=== PATIENT | male | born 1945 | race Caucasian/White ===

== ENCOUNTER 2018-12-09 09:30 | Outpatient (CLI) | payer MEDICARE ==
--- NOTE | 2018-12-09 11:44 | ULT ---
BILATERAL CAROTID DUPLEX ULTRASOUND INCLUDING COLOR AND SPECTRAL DOPPLER IMAGING: History: Carotid bruit. FINDINGS: There is very extensive visual plaque with lumen diameter narrowing in both right and left proximal I Giselle, worse on the right side. PSV right ICA 355 cm/sec, EDV 129 cm/sec. ICA/CCA ratio is 2.3. PSV left ICA 118 cm/sec, EDV 20 cm/sec. ICA/CCA ratio of 1.0. Vertebral flow is antegrade. IMPRESSION: Severe, greater than 70%, stenosis of the proximal right ICA. Consider non-emergent follow up CT yane ogram for further assessment in this regard. POS: [facility]
== END 2018-12-09 09:31 | disposition home or self-care (01) ==
LOC: ULT 09:30
PROVIDERS: ATTEND Specialist
DX: R09.89 Other specified symptoms and signs involving the circulatory and respiratory systems (principal); I65.21 Occlusion and stenosis of right carotid artery
CPT/HCPCS: 93880

== ENCOUNTER 2018-12-19 09:32 | Outpatient (CLI) | payer MEDICARE ==
--- NOTE | 2018-12-19 12:06 | ULT ---
HEPATIC ULTRASOUND: HISTORY: Cirrhosis. FINDINGS: This exam is technically limited due to bowel gas and patient body habitus. A gallbladder is not nazario ntified. The patient does not state they have had a cholecystectomy. The common duct is not well se en but appears to be 3-4 mm. The liver measures approximately 12 cm in length. Mildly heterogeneous , but no discrete abnormalities. DOPPLER EVALUATION WITH SPECTRAL ANALYSIS: Limited evaluation is seen, but flow patterns appear normal. The spleen is enlarged at 16.4 cm. Pancreas region is obscured as is the abdominal aorta. IMPRESSION: 1. Technically limited examination. The liver is mildly heterogeneous and shows no focal mass. The re is splenomegaly present. 2. The gallbladder is not identified. POS: [facility]
== END 2018-12-19 09:33 | disposition home or self-care (01) ==
LOC: BICULT 09:32
PROVIDERS: ATTEND Internal Medicine Gastroenterology
DX: K74.60 Unspecified cirrhosis of liver (principal); R93.1 Abnormal findings on diagnostic imaging of heart and coronary circulation; R16.1 Splenomegaly, not elsewhere classified
CPT/HCPCS: 76705

== ENCOUNTER 2019-01-02 09:48 | Outpatient (CLI) | payer MEDICARE ==
[2019-01-02 10:40] LABS: Estimated GFR-MDRD - POC Greater than 90
--- NOTE | 2019-01-02 12:01 | CT ---
CTA OF THE NECK UTILIZING IV CONTRAST AND 3D REFORMATTED IMAGING. INDICATION: Carotid stenosis identified by carotid ultrasound dated 12/09/2018. CONTRAST: 100 cc of Isovue 370 was utilized for the examination. Three-D reformatted images were constructed f rom the raw data at a separate work station. FINDINGS: There is 70% luminal caliber narrowing involving the right internal carotid artery at its origin. Th ere is mild luminal caliber narrowing involving the proximal to mid left internal carotid artery that does not appear hemodynamically significantly stenosis. The remaining cervical, petrous, precaverno us, cavernous, and supraclinoid ICAs appear patent. Visualized aspects of the MCAs, ACAs, and certified substance abuse counselor a re patent. There is mild to moderate luminal caliber narrowing involving the origin of the right ar tebral artery that approaches 50%. The left vertebral artery is widely patent. The visualized aspec ts of the basilar artery appear widely patent. Visualized intracranial contents are unremarkable appearing. The orbits are within normal limits. T he parotid, submandibular, and thyroid glands are normal appearing. The visualized aerodigestive tra ct appears within normal limits. There is severe emphysematous change involving the lung apices. There is postsurgical change of a pr ior CABG. There is an ACDF plate involving C4 through C6. There is multilevel spondylosis of the ce rvical spine. IMPRESSION: 1. 70% luminal caliber narrowing involving the origin and proximal aspect of the right internal brown tid artery. 2. 50% luminal caliber narrowing involving the origin and proximal aspect of the cervical right vert ebral artery. 3. Severe emphysema. POS: [facility]
[2019-01-02] MEDS ORDERED: ISOVUE-370 76%-LOCM 1 ML ONE (16:36)
== END 2019-01-02 09:49 | disposition home or self-care (01) ==
LOC: BICCT 09:48
PROVIDERS: ATTEND Specialist
DX: I65.21 Occlusion and stenosis of right carotid artery (principal); J43.9 Emphysema, unspecified; I65.01 Occlusion and stenosis of right vertebral artery
CPT/HCPCS: 70498; 82565; Q9966

== ENCOUNTER 2019-09-10 09:16 | Outpatient (CLI) | payer MEDICARE ==
--- NOTE | 2019-09-10 10:42 | ULT ---
HEPATIC SONOGRAM WITH DUPLEX EVALUATION: Date: 09/10/19 HISTORY: Cirrhosis. FINDINGS: Gallbladder is not visualized on today's exam. No abnormalities are apparent. Common duct is 0.3 cm. Liver has a normal appearance without focal mass or intrahepatic biliary dilatation. No free fluid. The spleen measures up to 15.7 cm. Fusiform dilatation of the lower abdominal aorta measuring up to 4 .3 cm greatest AP diameter. Good color and spectral Doppler flow within the hepatic and splenic arteries. Portal venous flow is t owards the liver. Hepatic venous flow is towards the IVC. IMPRESSION: 1. Moderate splenomegaly. Possibly related to portal venous hypertension. Appropriate directional po rtal venous flow. 2. Fusiform lower abdominal aortic aneurysm, 4.3 cm. 3. Gallbladder not visualized on today's exam. POS: [facility]
== END 2019-09-10 09:17 | disposition home or self-care (01) ==
LOC: ULT 09:16
PROVIDERS: ATTEND Physician Assistant Medical
DX: K74.60 Unspecified cirrhosis of liver (principal); I85.00 Esophageal varices without bleeding; R16.1 Splenomegaly, not elsewhere classified; I71.4 Abdominal aortic aneurysm, without rupture
CPT/HCPCS: 76705

== ENCOUNTER 2019-10-04 15:03 | Inpatient (IN) | payer MEDICARE ==
[~2019-10-04 15:03] MED LIST: Iopamidol-370 76% 500 ML 1 ML ONE
[2019-10-04 16:07] LABS: #Eosinphils 0.1 thou/uL (0.0-0.7); #Lymphocytes 0.5 thou/uL (1.20-3.40); #Monocytes 0.4 thou/uL (0.11-0.59); %Basophils 0.1 % (0.0-1.0); %Eosinophils 1.4 % (0.0-10.0); %Lymphocytes 10.5 % (21.0-51.0); %Monocytes 8.5 % (0.0-10.0); %Neutrophils 79.5 % (42.0-75.0); Hemoglobin 12.6 g/dL (14.0-18.0); Mean Corpuscular HGB CONC 32.4 g/dL (32.0-36.0); Mean Corpuscular Hemoglobin 28.7 pg (27.0-31.0); Mean Corpuscular Volume 88.4 fL (78.0-98.0); RBC Distribution Width 16.3 % (11.5-14.5); Red Blood Cell (RBC) Count 4.39 mill/uL (4.70-6.10)
[2019-10-04] MEDS ORDERED: cefTRIAXone\\ROCEPHIN 1 GM VIAL ONE (16:11)
[2019-10-04] MEDS ORDERED: Azithromycin 500 MG VIAL ONE (16:11)
[2019-10-04 16:29] LABS: MDiff Complete? YES; Ovalocytes SLIGHT = 2-5 cells (100X) (0-1/hpf); Platelet Count 39 thou/uL (130-400); Platelet Morphology Comment Appears Decreased; Polychromasia SLIGHT = 2-3 cells (100X) (0-2/hpf); Tear Drops SLIGHT = 2-5 cells (100X) (0-1/hpf)
[2019-10-04 16:31] LABS: ALT (SGPT) 21 U/L (8-55); AST (SGOT) 30 U/L (5-34); Albumin 3.2 g/dL (3.4-4.8); Alkaline Phosphatase 96 U/L (40-110); Anion Gap 11 mmol/L (10-20); BUN (Urea Nitrogen) 9 mg/dL (8.4-25.7); Bilirubin, Total 2.3 mg/dL (0.2-1.2); CK (CPK) 44 U/L (30-200); Calc. Creatinine Clearance 0 mL/min (70-130); Calcium 8.8 mg/dL (7.8-10.44); Carbon Dioxide 25 mmol/L (23-31); Chloride 106 mmol/L (98-107); Estimated GFR-MDRD Greater than 90; Globulin 3.1 g/dL (2.4-3.5); Glucose 137 mg/dL (83-110); Potassium 4.2 mmol/L (3.5-5.1); Protein, Total 6.3 g/dL (5.8-8.1); Sodium 138 mmol/L (136-145)
--- NOTE | 2019-10-04 16:31 | RAD ---
XR Chest 1 View Portable History: Cough Comparison: Radiograph 2011 Findings: Heart size mildly enlarged. There is suggestion of mild pulmonary edema and pulmonary venou s congestion. No pneumothorax. No significant effusion. Multiple midline sternotomy wires. Impression: Findings of congestive heart failure. Follow-up recommended.
--- NOTE | 2019-10-04 17:48 | CT ---
CTA Angio Chest W WO Con History: Cough Comparison: Radiograph same day Findings: CT in April chest performed after the intravenous ministration of contrast. 3-D rendering pr ovided. Pulmonary arteries are dilated. No proximal segmental pulmonary arterial filling defect. Aortic contour is nonaneurysmal. Numerous mildly prominent paratracheal and prevascular lymph nodes. The spleen is markedly enlarged. The gallbladder has cholelithiasis. There is fluid along the right p aracolic gutter, incompletely evaluated. No significant pericardial fluid. Mild pulmonary venous congestion and early edema. There is some subpleural reticulation and lower lob es. No pneumothorax. No focal confluent airspace consolidation. No thoracic spine compression fracture. There is contrast within the renal collecting systems on the examination indicating this is done during a delayed phase. No displaced rib fracture. Impression: 1. Within the limits of this delayed exam, no pulmonary embolism. 2. Cardiomegaly and mild pulmonary venous congestion. 3. Markedly splenomegaly. 4. Cholelithiasis. 5. Small volume fluid right paracolic gutter may be sequelae of portal hypertension and hepatic dysfu nction versus colitis.
[2019-10-04 20:41] LABS: Troponin I 0.174 ng/mL (< 0.028)
[2019-10-04] MEDS ORDERED: Furosemide 40 MG/4 ML VIAL ONE (21:40)
[2019-10-05 02:44] LABS: Troponin I 0.207 ng/mL (< 0.028)
[2019-10-05] MEDS ORDERED: Dextrose 50% Abboject 50 ML SYRINGE IVP PRN (08:31)
[2019-10-05] MEDS ORDERED: Dextrose 5% in Water 1,000 ML IV PRN (08:31)
[2019-10-05] MEDS ORDERED: Insulin Regular 300 UNITS/3 ML VIAL SC PRN ×2 (08:31)
[2019-10-05] MEDS ORDERED: Propranolol HCl 20 MG TAB PO SCH (09:00)
[2019-10-05] MEDS ORDERED: Aspirin 325 MG TAB ONE (09:11)
[2019-10-05] MEDS ORDERED: Multivitamin W/ Minerals 1 TAB ONE (09:11)
[2019-10-05] MEDS: Aspirin 325 MG TAB PO SCH (09:41)
[2019-10-05] MEDS: Lisinopril 20 MG TAB PO SCH (09:41)
[2019-10-05] MEDS: Multivit, Therapeutic 1 TAB PO SCH (09:42)
[2019-10-05] MEDS: Isosorbide Mononitrate (ER) 30 MG TAB PO SCH ×2 (09:42→21:47)
[2019-10-05] MEDS: Oxybutynin 5 MG TAB PO SCH (09:42)
[2019-10-05] MEDS: Alogliptin 25 MG TAB PO SCH (09:42)
--- NOTE | 2019-10-05 10:32 | HP ---
CHIEF COMPLAINT: Congestive heart failure and atypical pneumonia. 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 He had actually been in to see Dr. Rocha 2 weeks prior, at which time he said he felt better at the time and nothing was determined on his physical exam to be abnormal other than his usual issues. In the last 2 weeks, he has noted increasing shortness of breath. In the last several days, there has been fever, diaphoresis, nausea. No vomiting or diarrhea. Cough, but it got really bad on the day of admission, such that he could not walk to get into his car; therefore, he intended to drive to the emergency room so that he called the 911 and they brought him into the emergency room. There, he was noted by chest x-ray and CT scan to have pulmonary edema and possibly infiltrate for pneumonia. The patient has not documented his fever. He has been diaphoretic with severe cough and he has dyspnea on exertion. PAST MEDICAL HISTORY: He has chronic lymphocytic leukemia, has been in remission for quite some time. He is a type 2 diabetic. He has a long history of coronary artery disease with a cath done in 1990 and bypass in 1990. He also has severe GERD. He has a chronic anemia felt to be related to his leukemia. He has hyperlipidemia. He has type 2 diabetes, usually well controlled with medication. He also has a history of BPH, hypertension. PAST SURGICAL HISTORY: Includes the aforementioned cardiac bypass in 1990. In 1987, he had severe cervical stenosis requiring surgery with Dr. Baird. He had an episode of chest pain needing a coronary artery bypass graft x5. His last colonoscopy was in 2010, where he was noted to have diverticulosis. SOCIAL HISTORY: He drinks socially. He does not smoke. He is . ALLERGIES: HE HAS NO KNOWN DRUG ALLERGIES. MEDICATIONS: On admission include: 1. Aspirin 81 mg daily. 2. Oxybutynin 5 mg daily. 3. Kombiglyze 2.03/1000 b.i.d. 4. Imdur 30 mg b.i.d. 5. Glimepiride 2 mg b.i.d. 6. Propranolol 20 mg b.i.d. 7. Rosuvastatin 5 mg daily. 8. Niacin 500 mg two tabs b.i.d. 9. Benazepril 20 mg at bedtime. 10. Omeprazole 20 mg daily. 11. Vitamin D 5000 units daily. 12. Saw [place] 450 mg two tabs b.i.d. 13. He no longer takes a diuretic. REVIEW OF SYSTEMS: CONSTITUTIONAL: He has general weakness, dyspnea on exertion, diaphoresis, fever, general malaise. HEENT: No sores or lesions or drainage from eyes, ears, nose, or throat. CHEST: He has dyspnea with cough. CARDIOVASCULAR: He denies chest pain or palpitations. GI: He has had nausea, but no vomiting or diarrhea. : No dysuria. He has chronic urinary frequency. No blood in urine or stool. MUSCULOSKELETAL: No new aches or pains or joint problems. SKIN: No new rashes or lesions. NEUROLOGIC: No trouble with mentation, headaches, or confusion. PHYSICAL EXAMINATION: At the time of admission, VITAL SIGNS: Blood pressure 119/55, respirations 16, pulse 66, temperature 98.6 , O2 saturation is 95% on room air. GENERAL: This is an obese male, alert, oriented, cooperative. HEENT: Normocephalic, atraumatic. Pupils are equal, round, and reactive to light with arcus senilis bilaterally. TMs, nares, and his pharynx are clear. NECK: Supple. CHEST: Unable to appreciate bruit or mass. Chest with diminished breath sounds and audible rales bilaterally. HEART: Regular rate and rhythm without murmur. ABDOMEN: Obese. Able to appreciate splenomegaly also noted on CT exam. No other masses or tenderness noted. : Deferred. EXTREMITIES: Without clubbing, cyanosis, or edema. SKIN: Without rashes or lesions. NEUROLOGIC: Cranial nerves are intact. Gait and cerebellar function untested. Sensory exam is generally intact. Mental status is clear. LABORATORY DATA: Lab work thus far shows WBCs 5, hemoglobin 12.6, hematocrit 38.8 with platelets at 39. The D-dimer elevated at 2.9. Sodium 138, potassium 4.2, chloride 106, CO2 is 25, BUN 9, creatinine 0.7, glucose 137, lactic acid 1.7, total bilirubin 2.3. Other liver functions unremarkable. Cardiac enzymes elevated at 0.1, all the way up to 0.25. His BNP elevated at 393. Chest x-ray showed what appears to be pulmonary edema. CT scan confirms a splenomegaly, also noted indolent pneumonia probably present as well. ASSESSMENT: 1. Congestive heart failure, acute exacerbation. 2. Atypical pneumonia. 3. Thrombocytopenia. 4. History of chronic lymphocytic leukemia. 5. Type 2 diabetes. 6. Hypertension. 7. Dyslipidemia. 8. History of coronary artery disease with coronary artery bypass graft x5. PLAN: Telemetry. Continue IV medications. Consult Dr. Arteaga, echocardiogram. Gradual diuresis and serial re-evaluation. Job ID: [id number] MTDD
[2019-10-05 10:59] VITALS: BMI 32.2
[2019-10-05] MEDS ORDERED: FLU VACC TS2019-20(65YR UP)/PF 180 MCG/0.5 ML SYRINGE IM ONE (11:45)
[2019-10-05] MEDS ORDERED: Furosemide 20 MG/2 ML VIAL SLOW IVP SCH (13:45)
[2019-10-05] MEDS ORDERED: Enoxaparin Sodium 120 MG/0.8 ML SYRINGE SC SCH (14:00)
--- NOTE | 2019-10-05 14:20 | CON ---
DATE OF CONSULTATION: PRIMARY DIGITAL MARKETING ASSISTANT: Dr. Diego Arteaga. REASON FOR CONSULTATION: Shortness of breath, congestive heart failure, and [id number] myocardial infarction. HISTORY OF PRESENT ILLNESS: Mr. Recinos is a very pleasant 74-year-old gentleman, patient of Dr. Arteaga. The patient initially had bypass surgery in 1990. The patient has had some chest pain off and on since then, but from what I can tell, no intervention has been necessary. He did undergo cardiac catheterization by Dr. Killian in the year 1999. At that time, he was found to have 3-vessel coronary artery disease with a patent internal mammary to the LAD, patent vein graft to the diagonal, patent vein graft to marginal branch of the circumflex, patent graft to the posterior descending artery. He did have some diffuse distal disease. The patient was seen by Dr. Arteaga a few times since then, doing well. The patient states that he has not been feeling well now for about 2 weeks. He has had a subjective fever for about 2 weeks and a cough he said, but he cannot cough anything up. He said he did not have a thermometer, but eventually got a thermometer and it was sometimes at 100.6, but then yesterday went to 101.9. He decided to come to the emergency room. He has been started on antibiotics. He did not have any shaking chills. The patient does not have any anginal chest pain. He does have some chest pain with a deep breath. The patient otherwise has been in relatively good physical condition. MEDICATIONS: 1. Saxagliptin/metformin. 2. Actos. 3. Oxybutynin. 4. Omeprazole. 5. Nadolol. 6. Isosorbide. 7. Glimepiride. 8. Benazepril. 9. Aspirin. 10. Niacin. ALLERGIES: NONE KNOWN. REVIEW OF SYSTEMS: CONSTITUTIONAL: Positive for weakness, fatigue, and fever. VISION: No changes. HEARING: No changes. PULMONARY: As above. CARDIAC: No anginal chest pain. GASTROINTESTINAL: No nausea, vomiting, or diarrhea. SKIN: No rashes. NEUROLOGIC: No unilateral weakness or numbness. PSYCHIATRIC: No unusual depression or anxiety. PHYSICAL EXAMINATION: GENERAL: This is a pleasant 74-year-old gentleman. VITAL SIGNS: Blood pressure 149/86, pulse 66 and regular. EYES: Sclerae nonicteric. MOUTH: Mucous membranes moist. NECK: Supple. No lymphadenopathy. LUNGS: He has bibasilar rales on the left side greater than the right. No wheezing. CARDIAC: Normal S1 and normal S2. ABDOMEN: Soft and nontender. EXTREMITIES: Warm and dry. No clubbing. No cyanosis or edema. He has good peripheral pulses. SKIN: Warm and dry. PERTINENT LABORATORY DATA: Troponin peak of 0.25. Glucose 241. BNP 393. Bilirubin 2.3. WBC is 5.0. D-dimer 2.9. IMAGING STUDIES: The patient has had chest CTA, which was negative for thrombus. Chest x-ray does look like some element of pulmonary vascular congestion with cardiac enlargement. The chest and thorax CTA revealed no pulmonary embolism. No evidence of cardiomegaly. Pulmonary vascular congestion. Echocardiogram has been ordered. EKG reveals a right bundle-branch block with a left axis deviation, that is not a new finding, bifascicular block. ASSESSMENT: 1. Fever up to 101.9, probably pulmonary in origin. 2. Cough, seems to be a combination of perhaps bronchitis as well as congestive heart failure. 3. Congestive heart failure, most likely this represents diastolic acute on chronic. 4. Coronary artery disease with previous bypass surgery 18 years ago. PLAN: 1. I agree with antibiotics. 2. We will begin diuretics. 3. Change beta blockers to carvedilol. 4. Hopefully eventually can proceed to cardiac catheterization. Right now, the patient can lay down more than about a 45-degree angle, it would not be safe or reasonable to proceed with catheterization at this point. In addition, he has had a non-ST elevation myocardial infarction, which is probably demand ischemia. We will anticoagulate as well, give him aspirin as well. We will continue to follow with you. 5. Prognosis guarded. Job ID: [id number]
[2019-10-05] MEDS: Carvedilol 3.125 MG TAB PO SCH (16:54)
[2019-10-05] MEDS: Glimepiride 2 MG TAB PO SCH (16:56)
[2019-10-05] MEDS: Azithromycin 500 MG in Sodium Chloride 0.9% 250 ML 250 ML IVPB SCH (17:47)
[2019-10-05] MEDS: cefTRIAXone\\ROCEPHIN 1 GM in Sodium Chloride 0.9% 100 ML IVPB SCH (17:47)
[2019-10-05] MEDS ORDERED: Rosuvastatin 5 MG TAB PO SCH (21:00)
[2019-10-06 04:47] LABS: Anion Gap 7 mmol/L (10-20); BUN (Urea Nitrogen) 11 mg/dL (8.4-25.7); Calc. Creatinine Clearance 120 mL/min (70-130); Calcium 8.2 mg/dL (7.8-10.44); Carbon Dioxide 31 mmol/L (23-31); Chloride 109 mmol/L (98-107); Estimated GFR-MDRD Greater than 90; Glucose 66 mg/dL (83-110); Potassium 4.1 mmol/L (3.5-5.1); Sodium 143 mmol/L (136-145)
[2019-10-06 05:13] LABS: Anisocytosis SLIGHT = 6-15 cells (100X) (0-5/hpf); Band 5 % (5-11); Eosinophils 1 % (0-10); Hemoglobin 10.7 g/dL (14.0-18.0); Lymphocytes 22 % (21-51); MDiff Complete? YES; Mean Corpuscular HGB CONC 31.3 g/dL (32.0-36.0); Mean Corpuscular Volume 89.3 fL (78.0-98.0); Mean Platelet Volume 15.2 fL (7.4-10.4); Monocytes 3 % (0-10); Neutrophil 69 % (42-75); Platelet Count 26 thou/uL (130-400); Platelet Morphology Comment Appears Decreased; Red Blood Cell (RBC) Count 3.84 mill/uL (4.70-6.10); White Blood Cell (WBC) Count 3.2 thou/uL (4.8-10.8)
[2019-10-06] MEDS: Glimepiride 2 MG TAB PO SCH (08:16)
[2019-10-06] MEDS: Carvedilol 3.125 MG TAB PO SCH ×2 (08:24→16:51)
[2019-10-06] MEDS: Isosorbide Mononitrate (ER) 30 MG TAB PO SCH ×2 (08:24→20:33)
[2019-10-06] MEDS: Lisinopril 20 MG TAB PO SCH (08:24)
[2019-10-06] MEDS: Alogliptin 25 MG TAB PO SCH (08:24)
[2019-10-06] MEDS: Multivit, Therapeutic 1 TAB PO SCH (08:25)
[2019-10-06] MEDS: Oxybutynin 5 MG TAB PO SCH (08:25)
[2019-10-06] MEDS: Aspirin 325 MG TAB PO SCH (08:25)
[2019-10-06] MEDS: Furosemide 20 MG TAB PO SCH (08:25)
[2019-10-06 09:09] LABS: #Eosinphils 0.1 thou/uL (0.0-0.7); #Lymphocytes 0.7 thou/uL (1.20-3.40); #Monocytes 0.4 thou/uL (0.11-0.59); #Neutrophils 2.8 thou/uL (1.40-6.50); %Basophils 0.1 % (0.0-1.0); %Eosinophils 2.6 % (0.0-10.0); %Lymphocytes 16.8 % (21.0-51.0); %Monocytes 9.3 % (0.0-10.0); %Neutrophils 71.1 % (42.0-75.0); Hemoglobin 11.8 g/dL (14.0-18.0); Mean Corpuscular Hemoglobin 27.9 pg (27.0-31.0); Mean Platelet Volume 14.2 fL (7.4-10.4); Platelet Count 31 thou/uL (130-400); Red Blood Cell (RBC) Count 4.22 mill/uL (4.70-6.10); White Blood Cell (WBC) Count 3.9 thou/uL (4.8-10.8)
[2019-10-06 09:42] LABS: Free T4 (Free Thyroxine) 1.15 ng/dL (0.70-1.48)
--- NOTE | 2019-10-06 09:43 | RAD ---
PA AND LATERAL CHEST: Date: 10/06/19 HISTORY: Chest pain. COMPARISON: 09/23/08 study. FINDINGS: Heart size appears borderline size with postop sternotomy change. There are chronic appearing lung ch anges present. No focal infiltrative process. IMPRESSION: Chronic appearing lung change. Interstitial changes are slightly more prominent than on the previous exam. There could be some minimal element of edema present. POS: [facility]
--- NOTE | 2019-10-06 10:14 | PRG ---
DATE OF SERVICE: 10/06/2019 SUBJECTIVE: Mr. Recinos is doing well. However, he did cough up some blood this morning. He still had an occasional episode of what sounds like angina. He is otherwise doing better. OBJECTIVE: VITAL SIGNS: His blood pressure is 112/55, pulse 65 and regular. LUNGS: Clear. CARDIAC: Normal S1, normal S2. ABDOMEN: Soft, nontender. Echocardiogram showed normal left ventricular function. The patient's platelet count, however, is extremely low at 26,000 with a repeat of 31,000. ASSESSMENT: 1. Severely low platelet count. 2. Diastolic heart failure, improved. 3. Probably pneumonia, improved. 4. Previous bypass surgery. PLAN: 1. He got one dose of Lovenox yesterday and was not given any further Lovenox. 2. Would recommend a Hematology consult. I do not think it is safe to proceed to invasive therapy at the present time with a platelet count being this low. 3. We will give another dose of Lasix. 4. Add nitrates and we will discuss with Dr. Rocha. Job ID: [id number]
[2019-10-06] MEDS ORDERED: Furosemide 20 MG/2 ML VIAL SLOW IVP SCH (14:00)
[2019-10-06 14:13] LABS: INR-International Normal Ratio 1.4; PTT 41.8 SEC (22.9-36.1); Prothrombin Time 17.3 SEC (12.0-14.7)
[2019-10-06] MEDS: Azithromycin 500 MG in Sodium Chloride 0.9% 250 ML 250 ML IVPB SCH (15:07)
[2019-10-06] MEDS: cefTRIAXone\\ROCEPHIN 1 GM in Sodium Chloride 0.9% 100 ML IVPB SCH (16:51)
[2019-10-06] MEDS ORDERED: Potassium Chloride 20 MEQ TAB PO SCH (17:00)
[2019-10-06] MEDS: SAW PALMETTO 450 MG PO SCH (17:08)
[2019-10-06] MEDS ORDERED: Amiodarone 450 MG, Admixture Fee 1 EACH in Dextrose 5% in Water 250 ML IVPB SCH (19:15)
[2019-10-06] MEDS ORDERED: Amiodarone 150 MG, Admixture Fee 1 EACH in Dextrose 5% in Water 100 ML IVPB SCH (20:00)
[2019-10-06] MEDS ORDERED: Metoprolol Tartrate 25 MG TAB PO SCH (21:00)
--- NOTE | 2019-10-06 21:51 | CON ---
DATE OF CONSULTATION: REASON FOR CONSULTATION: Thrombocytopenia. HISTORY OF PRESENT ILLNESS: Mr. Recinos is a pleasant gentleman, who is under the care of the [facility] and Dr. Adelso Rocha, who presented to the emergency room with increasing shortness of breath. He also had a fever for approximately 2 weeks. He was admitted for further workup. While showering, he began to have some chest pain during this admission and Cardiology was consulted. Mr. Recinos has a longstanding history of chronic iron-deficient anemia and mild chronic thrombocytopenia. He has been seen by Dr. Weeks in 2013, and after a prolonged absence again in 2016. His platelets in April 2017 were 58,000. He most recently has been seen by Dr. Landaverde and apparently has a new diagnosis of cirrhosis. On this admission, he underwent a chest and thorax CT angio. There was no PE. There was pulmonary venous congestion, cardiomegaly, splenomegaly and possible portal hypertension. The patient's platelets on arrival were 39,000, it dropped to 26,000 early this morning. We were asked to see the patient regarding his thrombocytopenia. The patient denies any complaints at this time. He has no shortness of breath. No chest pain. He has no bleeding, bruising, or rash. PAST MEDICAL HISTORY: 1. History of iron-deficient anemia with a negative GI workup. 2. Chronic ITP. 3. Type 2 diabetes. 4. Coronary artery disease. 5. Hyperlipidemia. PAST SURGICAL HISTORY: 1. Coronary artery bypass grafting. 2. Back surgery. ALLERGIES: NO KNOWN DRUG ALLERGIES. HOME MEDICATIONS: 1. Aspirin. 2. Benazepril. 3. Glimepiride. 4. Isosorbide. 5. Nadolol. 6. Niacin. 7. Prilosec. 8. Oxybutynin. 9. Pioglitazone. 10. Saw palmetto. 11. Saxagliptin/metformin. FAMILY HISTORY: Father from lung cancer. His brother and son have hemochromatosis. The patient has been tested in the past and was negative. SOCIAL HISTORY: , has 2 children. Lives alone. Former smoker. No alcohol or illicit drug use. REVIEW OF SYSTEMS: A 10-point review of systems is negative except for noted in HPI. PHYSICAL EXAMINATION: VITAL SIGNS: Temperature is 97.8, pulse is 81, respiratory rate 18, BP is 103/52. He is 95% on 4 L. GENERAL: This is a well-developed, well-nourished male, in no acute distress. HEENT: Normocephalic, atraumatic. Pupils are equal and reactive to light. NECK: Supple. CV: Regular rate and rhythm. LUNGS: Clear. ABDOMEN: Soft and nontender. Bowel sounds are positive. EXTREMITIES: There is no clubbing or cyanosis. SKIN: No rash. HEMATOLOGICAL: There is no petechiae or purpura. NEUROLOGICAL: Nonfocal. PERTINENT LABORATORY DATA AND X-RAYS: Current WBCs are 3.9, hemoglobin 11.8, hematocrit 38.0, platelet count is 31,000, 71% neutrophils, 16% lymphocytes. PT 7.3, INR is 1.4, and PTT is 41.8. Sodium is 143, potassium 4.1, chloride 109, CO2 is 31, BUN is 11, creatinine 0.7, bilirubin is 2.3, AST is 30, ALT is 21, alkaline phosphatase is 96. Troponin is 0.207. BNP is 393. Serum total protein is 6.3, albumin 3.2, globulin 3.1. ASSESSMENT: 1. Chronic thrombocytopenia. 2. Possible cirrhosis with splenomegaly and pulmonary hypertension. 3. Coronary artery disease. DISCUSSION: The patient has chronic ITP, which may have recently worsened secondary to his splenomegaly and cirrhosis. He does not require a platelet transfusion at this time and can follow up with GI for further workup. If he is to have a heart catheterization, I would recommend platelet transfusion to get his platelets above 50,000. No further workup at this time. I am unaware of a history of CLL. I have no documentation regarding that, so I will speak further with the patient regarding this. There is certainly no evidence of active CLL at this time. Thank you for the consult. We will follow along with his hospital course. Job ID: [id number]
[2019-10-07 00:19] LABS: ALT (SGPT) 20 U/L (8-55); AST (SGOT) 30 U/L (5-34); Albumin 2.8 g/dL (3.4-4.8); Alkaline Phosphatase 76 U/L (40-110); Bilirubin, Direct 0.7 mg/dL (0.1-0.3); Bilirubin, Total 1.4 mg/dL (0.2-1.2); Magnesium 1.6 mg/dL (1.6-2.6); Protein, Total 5.4 g/dL (5.8-8.1)
[2019-10-07 05:39] LABS: #Eosinphils 0.1 thou/uL (0.0-0.7); #Lymphocytes 0.9 thou/uL (1.20-3.40); #Monocytes 0.4 thou/uL (0.11-0.59); #Neutrophils 2.1 thou/uL (1.40-6.50); %Basophils 0.6 % (0.0-1.0); %Eosinophils 2.4 % (0.0-10.0); %Lymphocytes 26.8 % (21.0-51.0); %Monocytes 11.5 % (0.0-10.0); %Neutrophils 58.7 % (42.0-75.0); Hemoglobin 10.8 g/dL (14.0-18.0); MDiff Complete? YES; Mean Corpuscular HGB CONC 31.5 g/dL (32.0-36.0); Mean Corpuscular Volume 88.9 fL (78.0-98.0); Mean Platelet Volume 13.9 fL (7.4-10.4); Ovalocytes SLIGHT = 2-5 cells (100X) (0-1/hpf); Platelet Count 38 thou/uL (130-400); Platelet Morphology Comment Appears Decreased; RBC Distribution Width 15.9 % (11.5-14.5); Red Blood Cell (RBC) Count 3.84 mill/uL (4.70-6.10); Tear Drops SLIGHT = 2-5 cells (100X) (0-1/hpf); White Blood Cell (WBC) Count 3.5 thou/uL (4.8-10.8)
[2019-10-07 05:57] LABS: Anion Gap 9 mmol/L (10-20); BUN (Urea Nitrogen) 13 mg/dL (8.4-25.7); Calc. Creatinine Clearance 122 mL/min (70-130); Calcium 8.1 mg/dL (7.8-10.44); Carbon Dioxide 30 mmol/L (23-31); Chloride 107 mmol/L (98-107); Estimated GFR-MDRD Greater than 90; Glucose 101 mg/dL (83-110); Potassium 4.2 mmol/L (3.5-5.1); Sodium 142 mmol/L (136-145)
--- NOTE | 2019-10-07 08:20 | RAD ---
EXAM: Single view of the chest HISTORY: Pneumonia COMPARISON: 10/04/2019 FINDINGS: Single view of the chest shows an enlarged but stable cardiomediastinal silhouette. The pa tient is status post CABG. There is no evidence of consolidation, mass, or pleural effusion. The bones are unremarkable. IMPRESSION: No evidence of acute cardiopulmonary disease
[2019-10-07] MEDS ORDERED: Carvedilol 3.125 MG TAB PO SCH (08:45)
[2019-10-07] MEDS: Alogliptin 25 MG TAB PO SCH (08:51)
[2019-10-07] MEDS: Multivit, Therapeutic 1 TAB PO SCH (08:52)
[2019-10-07] MEDS: Isosorbide Mononitrate (ER) 30 MG TAB PO SCH ×2 (08:52→19:52)
[2019-10-07] MEDS: Furosemide 20 MG TAB PO SCH (08:52)
[2019-10-07] MEDS: Oxybutynin 5 MG TAB PO SCH (08:52)
[2019-10-07] MEDS: Aspirin 81 mg Enteric Coated Tablet PO SCH (08:52)
[2019-10-07] MEDS: Lisinopril 20 MG TAB PO SCH (08:52)
[2019-10-07] MEDS: Carvedilol 3.125 MG TAB PO SCH ×2 (08:57→16:18)
--- NOTE | 2019-10-07 09:03 | PRG ---
DATE OF SERVICE: 10/07/2019 SUBJECTIVE: Mr. Recinos is doing fine this morning. No chest pain. No shortness of breath. The patient did have an episode of tachycardia last night as will be outlined below. He is now in sinus rhythm. OBJECTIVE: VITAL SIGNS: Blood pressure 124/58, pulse 66 and regular. HEENT: Eyes; sclerae, nonicteric. Mouth, mucous membranes moist. LUNGS: Clear. CARDIAC: Normal S1, normal S2. ABDOMEN: Soft and nontender. EXTREMITIES: No edema. PERTINENT LABORATORY DATA: The patient's platelet count is 38,000, white count is 3.5. The INR yesterday was 1.4, PTT was 41.8, indicating he also has a coagulopathy. ASSESSMENT: 1. Bifascicular block. 2. Previous coronary artery bypass grafting. 3. Cardiac catheterization done in the year [address] Killian showed a patent internal mammary to the LAD, a small diffusely diseased to LAD, patent diagonal saphenous vein graft to a diagonal, patent saphenous vein graft to an obtuse marginal, patent saphenous vein graft to the right coronary artery. 4. Low platelet count thought to be related to ITP. 5. Coagulopathy, probably hepatic in origin. 6. Non-ST elevation myocardial infarction, prior demand ischemia. 7. Tachycardia. Same morphology is the resting EKG with a bifascicular block pattern, although somewhat wider. He was started on amiodarone last night and maintains on that today. PLAN: 1. We will talk with Dr. Weeks about the possibility of prednisone to see if we can get the platelet count higher. The problem would be if stenting is indicated, then really likely can be done safely without using dual anti-platelet drugs at least for a month and I think that would be safe with a platelet count below 50,000, also some coagulopathy. 2. Consult with Dr. Davidson about the dysrhythmia. 3. Prognosis is guarded in this gentleman with multiple problems. I do not think it is safe to proceed to catheterization today. In this situation, he will be a poor candidate for bypass surgery with low platelet count and coagulopathy, especially redo operation and also would be a poor candidate for percutaneous therapy with a platelet count of 38,000 and coagulopathy. Risk of bleeding would be high and it is unclear whether dual anti-platelet drugs could even be used. Job ID: [id number]
[2019-10-07] MEDS: Amiodarone 450 MG in Dextrose 5% in Water 250 ML IVPB SCH ×2 (10:26→23:52)
[2019-10-07] MEDS: cefTRIAXone\\ROCEPHIN 1 GM in Sodium Chloride 0.9% 100 ML IVPB SCH (16:16)
[2019-10-07] MEDS: Azithromycin 500 MG in Sodium Chloride 0.9% 250 ML 250 ML IVPB SCH (17:31)
--- NOTE | 2019-10-07 18:57 | CON ---
DATE OF CONSULTATION: 10/07/2019 HISTORY OF PRESENT ILLNESS: I am seeing Mr. 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 His problems are: 1. Newly found atypical appearing atrial flutter. a. Prompt response to amiodarone noted. 2. Coronary artery disease. a. History of coronary artery bypass grafting surgery in the past. b. Presentation of qth-AZ-[id number] myocardial infarction. c. Preserved LVEF on 2D echo at 55% to 60%, moderate to severely enlarged left atrium, mild mitral regurgitation, tricuspid regurgitation, mild pulmonary artery pressure elevation on echo on 10/05/2019. 3. Bifascicular block with right bundle and left axis deviation on baseline EKG. 4. 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 5. Type 2 diabetes. 6. Diastolic heart failure with exacerbation. 7. History of chronic lymphocytic leukemia. 8. Atypical pneumonia. ALLERGIES: NONE NOTED. MEDICATIONS: At home included: 1. Saxagliptin/metformin. 2. Pioglitazone. 3. Oxybutynin. 4. Omeprazole. 5. Nadolol. 6. Isosorbide mononitrate. 7. Glimepiride. 8. Benazepril. 9. Saw palmetto. 10. Aspirin. 11. Niacin. SUBJECTIVE: Mr. Recinos was admitted on the with progressive dyspnea for the last 2 weeks. He had cough progressively worsening on day of admission so much so he had to call the EMS. On chest x-ray and CT scan, he had noted to have pulmonary edema, possible infiltrating pneumonia was also diagnosed. He was initiated IV ceftriaxone as well as diuretics. Now seems to be remarkably improved. While on monitoring though he developed episodes of rapid narrow complex tachycardia with QRS morphology similar to baseline, but with rates up to 150 beats per minute. This rhythm promptly terminated with IV amiodarone bolus. He also was noted to have elevated troponin levels. Dr. Carrasco consulted me for further arrhythmia management. Currently, the patient is afebrile. Denies chest pain. No palpitations. Not aware of the rapid heartbeats. He had no stroke-like symptoms. No neurological deficits. Rest of 12-point review of systems is otherwise unremarkable. PAST MEDICAL HISTORY: As above. SOCIAL HISTORY: The patient denies smoking, EtOH, or drug abuse. He does drink socially. He is . FAMILY HISTORY: Not contributory. OBJECTIVE DATA: VITAL SIGNS: Blood pressure is 103/52, heart rate 78, respirations 24, temperature 97.7 degrees Fahrenheit. GENERAL: Alert and oriented man, in no apparent distress. NECK: Supple. Jugular vein is not distended. CHEST: Coarse without crackles. HEART: Sounds are regular to rate and rhythm. No murmur or gallop. ABDOMEN: Benign. Bowel sounds positive. EXTREMITIES: Lower extremities without edema, clubbing, or cyanosis. Pulses are adequate. NEUROLOGIC: The patient is nonfocal. MUSCULOSKELETAL: Without joint swelling or deformity. SKIN: Without rash. Midsternal scar is appreciated. DATABASE: EKG is reviewed. Again reveals sinus rhythm with bifascicular block and rate of 68 beats per minute on October 04, 2019. Telemetry strips do reveal an episode of wide-complex tachycardia, although similar morphology to baseline with difficult to visualize P wave, but possibly 2:1 conduction is noted suggestive of atrial flutter. It does not appear to be typical isthmus-dependent flutter in morphology. Now the patient is back in sinus rhythm. LABORATORY DATA: White cell count is 3.5, hemoglobin 10.8, platelet count is 38. The INR 1.4. Sodium 142, potassium 4.2, BUN is 13, creatinine 0.68. AST and ALT are 30 and 20, total bilirubin is 1.4. BNP on presentation is 393. ASSESSMENT AND PLAN: Mr. Recinos is a 74-year-old man with history of coronary artery disease, prior bypass surgery, possible diastolic heart failure/pneumonia, causing respiratory distress and the current admission. He also had elevated troponin levels, albeit positive mild up to 0.25 and 0.307. Now his initial symptoms improved, but had developed transient likely atrial flutter episode with 2:1 AV conduction, which appears to be atypical in morphology. He did respond to amiodarone. I discussed the diagnosis and potential treatment options with the patient as well as with Dr. Carrasco. It appears to me that the initiated IV amiodarone has been highly effective of terminating the arrhythmia. Hence, the acute illness and potential coronary issues, which may require further ischemic evaluation at this point is reasonable to continue IV amiodarone, although long-term administration of drug could potentially mar by side effects like pulmonary, liver, and thyroid toxicity. On the other hand, antiarrhythmic choices are limited, hence, history of coronary artery disease and diastolic heart failure. Possibly sotalol could be a potential option if in the future alternative agent is desired. On the short term, though I think it is reasonable to continue IV to p.o. amiodarone and likely taper off as an outpatient. Should the episodes frequently recur or should it more prolonged, it was a difficult decision to put this gentleman on chronic anticoagulation, especially in view of his thrombocytopenia. For now, I would hold off on that. Hence, a short duration of the episode. I have to follow with this gentleman as an outpatient. Thank you again for letting me to participate in the care of this patient. Job ID: [id number]
[2019-10-08 05:15] LABS: #Eosinphils 0.1 thou/uL (0.0-0.7); #Lymphocytes 0.6 thou/uL (1.20-3.40); #Monocytes 0.3 thou/uL (0.11-0.59); #Neutrophils 1.7 thou/uL (1.40-6.50); %Basophils 0.9 % (0.0-1.0); %Eosinophils 3.4 % (0.0-10.0); %Lymphocytes 22.4 % (21.0-51.0); %Neutrophils 61.3 % (42.0-75.0); Hemoglobin 10.1 g/dL (14.0-18.0); Mean Corpuscular HGB CONC 31.9 g/dL (32.0-36.0); Mean Corpuscular Hemoglobin 28.6 pg (27.0-31.0); Mean Corpuscular Volume 89.6 fL (78.0-98.0); Mean Platelet Volume 12.7 fL (7.4-10.4); Platelet Count 41 thou/uL (130-400); RBC Distribution Width 15.8 % (11.5-14.5); Red Blood Cell (RBC) Count 3.53 mill/uL (4.70-6.10); White Blood Cell (WBC) Count 2.8 thou/uL (4.8-10.8)
[2019-10-08] MEDS: Oxybutynin 5 MG TAB PO SCH (08:18)
[2019-10-08] MEDS: Isosorbide Mononitrate (ER) 30 MG TAB PO SCH ×2 (08:18→20:17)
[2019-10-08] MEDS: Aspirin 81 mg Enteric Coated Tablet PO SCH (08:18)
[2019-10-08] MEDS: Multivit, Therapeutic 1 TAB PO SCH (08:19)
[2019-10-08] MEDS: Furosemide 20 MG TAB PO SCH (08:19)
[2019-10-08] MEDS: Alogliptin 25 MG TAB PO SCH (08:19)
[2019-10-08] MEDS: Lisinopril 20 MG TAB PO SCH (08:19)
[2019-10-08] MEDS: Carvedilol 3.125 MG TAB PO SCH ×2 (08:19→18:00)
[2019-10-08] MEDS: Azithromycin 500 MG in Sodium Chloride 0.9% 250 ML 250 ML IVPB SCH (16:09)
[2019-10-08] MEDS: cefTRIAXone\\ROCEPHIN 1 GM in Sodium Chloride 0.9% 100 ML IVPB SCH (17:59)
[2019-10-08] MEDS: Amiodarone 200 MG TAB PO SCH (20:17)
[2019-10-09 04:19] LABS: #Eosinphils 0.1 thou/uL (0.0-0.7); #Lymphocytes 0.8 thou/uL (1.20-3.40); #Monocytes 0.3 thou/uL (0.11-0.59); #Neutrophils 2.1 thou/uL (1.40-6.50); %Basophils 0.8 % (0.0-1.0); %Eosinophils 2.2 % (0.0-10.0); %Lymphocytes 22.8 % (21.0-51.0); %Neutrophils 64.2 % (42.0-75.0); Hemoglobin 10.2 g/dL (14.0-18.0); Mean Corpuscular Hemoglobin 28.4 pg (27.0-31.0); Mean Corpuscular Volume 88.5 fL (78.0-98.0); Mean Platelet Volume 6.7 fL (7.4-10.4); Platelet Count 60 thou/uL (130-400); RBC Distribution Width 15.7 % (11.5-14.5); Red Blood Cell (RBC) Count 3.59 mill/uL (4.70-6.10); White Blood Cell (WBC) Count 3.3 thou/uL (4.8-10.8)
[2019-10-09] MEDS: Multivit, Therapeutic 1 TAB PO SCH (08:47)
[2019-10-09] MEDS: Carvedilol 3.125 MG TAB PO SCH ×2 (08:47→16:08)
[2019-10-09] MEDS: Amiodarone 200 MG TAB PO SCH ×2 (08:47→20:45)
[2019-10-09] MEDS: Oxybutynin 5 MG TAB PO SCH (08:47)
[2019-10-09] MEDS: Lisinopril 20 MG TAB PO SCH (08:47)
[2019-10-09] MEDS: Furosemide 20 MG TAB PO SCH (08:47)
[2019-10-09] MEDS: Aspirin 81 mg Enteric Coated Tablet PO SCH (08:47)
[2019-10-09] MEDS: Alogliptin 25 MG TAB PO SCH (08:47)
[2019-10-09] MEDS: Isosorbide Mononitrate (ER) 30 MG TAB PO SCH ×2 (08:47→20:45)
--- NOTE | 2019-10-09 15:44 | EKG ---
Test Reason : Blood Pressure : / mmHG Vent. Rate : 068 BPM Atrial Rate : 068 BPM P-R Int : 184 ms QRS Dur : 118 ms QT Int : 416 ms P-R-T Axes : 101 -30 015 degrees QTc Int : 442 ms Normal sinus rhythm Left axis deviation Right bundle branch block T wave inversion V2, V3 Abnormal ECG Confirmed by RENATO WELCH, WINSTON ([id number]), mapping editor TERRENCE FLOREZ ([id number]) on 10/09/2019 3:44:06 PM Referred By: Confirmed By:WINSTON GROSS MD
[2019-10-09] MEDS: Azithromycin 250 MG TAB PO SCH (16:08)
[2019-10-09] MEDS: Cefdinir 300 MG CAP PO SCH (20:45)
[2019-10-10 06:19] LABS: #Eosinphils 0.1 thou/uL (0.0-0.7); #Lymphocytes 0.6 thou/uL (1.20-3.40); #Monocytes 0.3 thou/uL (0.11-0.59); %Basophils 0.2 % (0.0-1.0); %Eosinophils 2.1 % (0.0-10.0); %Lymphocytes 19.1 % (21.0-51.0); %Monocytes 8.7 % (0.0-10.0); Hemoglobin 10.1 g/dL (14.0-18.0); Mean Corpuscular Hemoglobin 28.5 pg (27.0-31.0); Mean Corpuscular Volume 88.9 fL (78.0-98.0); Mean Platelet Volume 12.4 fL (7.4-10.4); Platelet Count 46 thou/uL (130-400); RBC Distribution Width 15.9 % (11.5-14.5); Red Blood Cell (RBC) Count 3.56 mill/uL (4.70-6.10); White Blood Cell (WBC) Count 2.9 thou/uL (4.8-10.8)
[2019-10-10] MEDS: Cefdinir 300 MG CAP PO SCH ×2 (09:11→20:20)
[2019-10-10] MEDS: Multivit, Therapeutic 1 TAB PO SCH (09:11)
[2019-10-10] MEDS: Oxybutynin 5 MG TAB PO SCH (09:12)
[2019-10-10] MEDS: Aspirin 81 mg Enteric Coated Tablet PO SCH (09:12)
[2019-10-10] MEDS: Alogliptin 25 MG TAB PO SCH (09:12)
[2019-10-10] MEDS: Isosorbide Mononitrate (ER) 30 MG TAB PO SCH ×2 (10:53→11:04)
[2019-10-10] MEDS: Lisinopril 20 MG TAB PO SCH (10:53)
[2019-10-10] MEDS: Amiodarone 200 MG TAB PO SCH ×2 (10:53→20:20)
[2019-10-10] MEDS: Carvedilol 3.125 MG TAB PO SCH ×2 (10:54→17:30)
[2019-10-10] MEDS: Furosemide 20 MG TAB PO SCH (10:54)
--- NOTE | 2019-10-10 16:40 | PDOC.CPN ---
- Subjective Date: 10/10/19 Time: 16:39 Interval history: No new issues, No angina. - Review of Systems General: denies: fever/chills, weight/appetite/sleep changes, night sweats, fatigue Respiratory: denies: cough, congestion, shortness of breath, exercise intolerance Cardiovascular: denies: chest pain, palpitation, edema, paroxysmal nocturnal dyspnea, orthopnea Gastrointestinal: denies: nausea, vomiting, diarrhea, constipation, abd pain, GI bleeding Musculoskeletal: denies: pain, tenderness, stiffness, swelling, arthritis/ arthralgias Neurological: denies: numbness, syncope, seizure, weakness - Objective Allergies/Adverse Reactions: Allergies Allergy/AdvReac Type Severity Reaction Status Date / Time No Known Allergies Allergy Verified 10/05/19 22:46 Visit Medications: Current Medications Albuterol/Ipratropium (Duoneb) 3 ml NEB Q4H PRN PRN Reason: SOB Albuterol/Ipratropium (Duoneb) 3 ml NEB QID-RT [facility] Last Admin: 10/10/19 14:36 Dose: 3 ml Alogliptin Benzoate (Alogliptin) 25 mg PO DAILY [facility] Last Admin: 10/10/19 09:12 Dose: 25 mg Amiodarone HCl (Cordarone) 400 mg PO BID [facility] Last Admin: 10/10/19 10:53 Dose: 400 mg Aspirin (Ecotrin) 81 mg PO DAILY [facility] Last Admin: 10/10/19 09:12 Dose: 81 mg Azithromycin (Zithromax) 250 mg PO 1600 [facility] Last Admin: 10/09/19 16:08 Dose: 250 mg Carvedilol (Coreg) 6.25 mg PO BID-[facility] Last Admin: 10/10/19 10:54 Dose: 6.25 mg Cefdinir (Omnicef) 300 mg PO BID [facility] Stop: 10/14/19 09:01 Last Admin: 10/10/19 09:11 Dose: 300 mg Dextrose/Water (Dextrose 50%) 25 gm IVP PRN PRN PRN Reason: HYPOGLYCEMIA PROTOCOL Furosemide (Lasix) 20 mg PO QAM [facility] Last Admin: 10/10/19 10:54 Dose: 20 mg Glucagon (Glucagon) 1 mg IM PRN PRN PRN Reason: HYPOGLYCEMIA PROTOCOL Dextrose/Water (D5w) 1,000 mls @ 0 mls/hr IV INF PRN PRN Reason: HYPOGLYCEMIA PROTOCOL Insulin Human Regular (Humulin R) 0 units SC .MILD SLIDING PRN; Protocol PRN Reason: MILD SLIDING SCALE Insulin Human Regular (Humulin R) 0 units SC .BEDTIME SLIDING SC PRN; Protocol PRN Reason: BEDTIME SLIDING SCALE Isosorbide Mononitrate (Imdur Er) 30 mg PO BID [facility] Last Admin: 10/10/19 11:04 Dose: Not Given Lisinopril (Zestril) 20 mg PO DAILY [facility] Last Admin: 10/10/19 10:53 Dose: 20 mg Multivitamins (Theragran) 1 tab PO DAILY [facility] Last Admin: 10/10/19 09:11 Dose: 1 tab Oxybutynin Chloride (Ditropan) 5 mg PO DAILY [facility] Last Admin: 10/10/19 09:12 Dose: 5 mg Pantoprazole Sodium (Protonix) 40 mg PO DAILY [facility] Last Admin: 10/10/19 09:12 Dose: 40 mg Sodium Chloride (Flush - Normal Saline) 10 ml IVF Q12HR [facility] Last Admin: 10/10/19 09:12 Dose: 10 ml Sodium Chloride (Flush - Normal Saline) 10 ml IVF PRN PRN PRN Reason: Saline Flush Vital Signs & Weight: Vital Signs Temp Pulse Resp BP BP BP Pulse Ox 10/10/19 16:00 97.5 F L 66 15 101/52 L 91 L 10/10/19 15:53 97.5 F L 66 15 101/52 L 91 L 10/10/19 14:59 96 10/10/19 14:36 65 20 96 10/10/19 11:30 98.1 F 70 18 118/58 L 92 L 10/10/19 10:53 111/55 L 10/10/19 10:45 63 14 94 L 10/10/19 10:33 111/55 L 10/10/19 10:30 115/56 L 10/10/19 07:59 97.8 F 65 20 119/57 L 93 L 10/10/19 07:32 78 20 94 L Weight 202 lb - Physical Exam General: alert & oriented x3 HEENT: mucus membranes moist Neck: supple neck, midline trachea Cardiac: regular rate and rhythm, no murmur Lungs: normal breath sounds Neuro: grossly intact Abdomen: active bowel sounds Extremities: no edema Skin: clear Musculoskeletal: no pain - Labs Result Diagrams: 10/10/19 06:04 10/07/19 04:42 Troponin/CKMB Troponin I 0.207 ng/mL (< 0.028) H 10/05/19 02:11 - Telemetry Sinus rhythms and dysrhythmias: sinus rhythm - Assessment/Plan Assessment/Plan: 1. Bifascicular block 2. CAD s/p CABg several years back 3. ITP, platelets improving. 4. NSTEMI PLAN: - Currently platelets still under 50,000 but he was at 60K yesterday. - Continue plan to do conservative therapy at this time. - Clinically he is stable.
[2019-10-10] MEDS: Azithromycin 250 MG TAB PO SCH (17:30)
[2019-10-11] MEDS: Cefdinir 300 MG CAP PO SCH ×2 (09:04→20:52)
[2019-10-11] MEDS: Aspirin 81 mg Enteric Coated Tablet PO SCH (09:04)
[2019-10-11] MEDS: Amiodarone 200 MG TAB PO SCH ×2 (09:04→20:51)
[2019-10-11] MEDS: Carvedilol 3.125 MG TAB PO SCH ×2 (09:04→16:52)
[2019-10-11] MEDS: Alogliptin 25 MG TAB PO SCH (09:04)
[2019-10-11] MEDS: Oxybutynin 5 MG TAB PO SCH (09:05)
[2019-10-11] MEDS: Multivit, Therapeutic 1 TAB PO SCH (09:05)
[2019-10-11] MEDS: Furosemide 20 MG TAB PO SCH (09:05)
[2019-10-11] MEDS: Lisinopril 20 MG TAB PO SCH (09:05)
[2019-10-11] MEDS: Isosorbide Mononitrate (ER) 30 MG TAB PO SCH (09:07)
--- NOTE | 2019-10-11 16:31 | PDOC.CPN ---
- Subjective Date: 10/11/19 Time: 16:28 Interval history: He is doing well. - Review of Systems General: denies: fever/chills, weight/appetite/sleep changes, night sweats, fatigue Respiratory: denies: cough, congestion, shortness of breath, exercise intolerance Cardiovascular: denies: chest pain, palpitation, edema, paroxysmal nocturnal dyspnea, orthopnea Gastrointestinal: denies: nausea, vomiting, diarrhea, constipation, abd pain, GI bleeding Musculoskeletal: denies: pain, tenderness, stiffness, swelling, arthritis/ arthralgias Neurological: denies: numbness, syncope, seizure, weakness - Objective Allergies/Adverse Reactions: Allergies Allergy/AdvReac Type Severity Reaction Status Date / Time No Known Allergies Allergy Verified 10/05/19 22:46 Visit Medications: Current Medications Albuterol/Ipratropium (Duoneb) 3 ml NEB Q4H PRN PRN Reason: SOB Albuterol/Ipratropium (Duoneb) 3 ml NEB QID-RT [facility] Last Admin: 10/11/19 14:40 Dose: 3 ml Alogliptin Benzoate (Alogliptin) 25 mg PO DAILY [facility] Last Admin: 10/11/19 09:04 Dose: 25 mg Amiodarone HCl (Cordarone) 400 mg PO BID [facility] Last Admin: 10/11/19 09:04 Dose: 400 mg Aspirin (Ecotrin) 81 mg PO DAILY [facility] Last Admin: 10/11/19 09:04 Dose: 81 mg Azithromycin (Zithromax) 250 mg PO 1600 [facility] Last Admin: 10/10/19 17:30 Dose: 250 mg Carvedilol (Coreg) 6.25 mg PO BID-[facility] Last Admin: 10/11/19 09:04 Dose: 6.25 mg Cefdinir (Omnicef) 300 mg PO BID [facility] Stop: 10/14/19 09:01 Last Admin: 10/11/19 09:04 Dose: 300 mg Dextrose/Water (Dextrose 50%) 25 gm IVP PRN PRN PRN Reason: HYPOGLYCEMIA PROTOCOL Furosemide (Lasix) 20 mg PO QAM [facility] Last Admin: 10/11/19 09:05 Dose: 20 mg Glucagon (Glucagon) 1 mg IM PRN PRN PRN Reason: HYPOGLYCEMIA PROTOCOL Dextrose/Water (D5w) 1,000 mls @ 0 mls/hr IV INF PRN PRN Reason: HYPOGLYCEMIA PROTOCOL Insulin Human Regular (Humulin R) 0 units SC .MILD SLIDING PRN; Protocol PRN Reason: MILD SLIDING SCALE Insulin Human Regular (Humulin R) 0 units SC .BEDTIME SLIDING SC PRN; Protocol PRN Reason: BEDTIME SLIDING SCALE Isosorbide Mononitrate (Imdur Er) 30 mg PO BID [facility] Last Admin: 10/11/19 09:07 Dose: Not Given Lisinopril (Zestril) 20 mg PO DAILY [facility] Last Admin: 10/11/19 09:05 Dose: 20 mg Multivitamins (Theragran) 1 tab PO DAILY [facility] Last Admin: 10/11/19 09:05 Dose: 1 tab Oxybutynin Chloride (Ditropan) 5 mg PO DAILY [facility] Last Admin: 10/11/19 09:05 Dose: 5 mg Pantoprazole Sodium (Protonix) 40 mg PO DAILY [facility] Last Admin: 10/11/19 09:04 Dose: 40 mg Sodium Chloride (Flush - Normal Saline) 10 ml IVF Q12HR [facility] Last Admin: 10/11/19 09:07 Dose: 10 ml Sodium Chloride (Flush - Normal Saline) 10 ml IVF PRN PRN PRN Reason: Saline Flush Vital Signs & Weight: Vital Signs Temp Pulse Resp BP BP Pulse Ox 10/11/19 15:51 97.7 F 70 16 115/56 L 93 L 10/11/19 14:40 63 18 92 L 10/11/19 11:31 97.5 F L 65 14 116/60 93 L 10/11/19 10:38 69 20 93 L 10/11/19 09:01 97.6 F 18 94 L 10/11/19 08:23 62 139/63 10/11/19 08:00 58 L 18 96 10/11/19 07:24 93 L Weight 202 lb 11.2 oz - Physical Exam General: alert & oriented x3 HEENT: mucus membranes moist Neck: supple neck Cardiac: regular rate and rhythm, no murmur Lungs: normal breath sounds Neuro: grossly intact Abdomen: active bowel sounds Extremities: no edema Skin: clear Musculoskeletal: no pain - Labs Result Diagrams: 10/10/19 06:04 10/07/19 04:42 Troponin/CKMB Troponin I 0.207 ng/mL (< 0.028) H 10/05/19 02:11 - Telemetry Sinus rhythms and dysrhythmias: sinus rhythm - Assessment/Plan Assessment/Plan: 1. Bifascicular block 2. CAD s/p CABg several years back 3. ITP, platelets improving. 4. NSTEMI PLAN: - Platelets chronically low and currently stable. Should be able to do LHC as this is a chronic issue for him and platelets have stabilized. - Will set up for LHC in the morning with Dr. Arteaga his primary manager analytical.
[2019-10-11] MEDS ORDERED: Communication Order-Pharmacy FS SCH (16:45)
[2019-10-11] MEDS: Azithromycin 250 MG TAB PO SCH (16:45)
[2019-10-11 17:51] LABS: Free T4 (Free Thyroxine) 1.04 ng/dL (0.70-1.48); Thyroid Stimulating Hormone 1.4037 uIU/mL (0.35-4.94)
--- NOTE | 2019-10-11 17:58 | ULT ---
THYROID ULTRASOUND: Indications: Thyroid abnormality. FINDINGS: Both lobes are mildly heterogeneous. Both lobes are slightly prominent. The right lobe measures 4.0 x 1.7 x 2.0 cm and the left lobe measures 4.3 x 1.6 x 1.3 cm. No evidence of circumscribed mass or nodule identified. IMPRESSION: Mildly enlarged and heterogeneous thyroid. POS: AGW
[2019-10-12 04:33] LABS: #Lymphocytes 0.7 thou/uL (1.20-3.40); #Monocytes 0.3 thou/uL (0.11-0.59); #Neutrophils 1.9 thou/uL (1.40-6.50); %Eosinophils 1.6 % (0.0-10.0); %Lymphocytes 24.1 % (21.0-51.0); %Monocytes 10.5 % (0.0-10.0); %Neutrophils 63.8 % (42.0-75.0); Mean Corpuscular HGB CONC 32.2 g/dL (32.0-36.0); Mean Corpuscular Hemoglobin 28.9 pg (27.0-31.0); Mean Corpuscular Volume 89.5 fL (78.0-98.0); Mean Platelet Volume 7.5 fL (7.4-10.4); Platelet Count 61 thou/uL (130-400); RBC Distribution Width 16.1 % (11.5-14.5); Red Blood Cell (RBC) Count 3.46 mill/uL (4.70-6.10); White Blood Cell (WBC) Count 2.9 thou/uL (4.8-10.8)
[2019-10-12 04:51] LABS: Anion Gap 8 mmol/L (10-20); BUN (Urea Nitrogen) 10 mg/dL (8.4-25.7); Calc. Creatinine Clearance 118 mL/min (70-130); Calcium 8.3 mg/dL (7.8-10.44); Carbon Dioxide 32 mmol/L (23-31); Chloride 105 mmol/L (98-107); Estimated GFR-MDRD Greater than 90; Glucose 101 mg/dL (83-110); Potassium 3.5 mmol/L (3.5-5.1); Sodium 141 mmol/L (136-145)
[2019-10-12] MEDS: Sodium Chloride 0.9% 1,000 ML IV SCH ×2 (05:37→17:10)
[2019-10-12] MEDS: Carvedilol 3.125 MG TAB PO SCH ×2 (08:05→17:09)
[2019-10-12] MEDS: Furosemide 20 MG TAB PO SCH (08:06)
[2019-10-12] MEDS: Cefdinir 300 MG CAP PO SCH ×2 (08:06→21:01)
[2019-10-12] MEDS: Amiodarone 200 MG TAB PO SCH ×2 (08:06→21:01)
[2019-10-12] MEDS: Alogliptin 25 MG TAB PO SCH (08:06)
[2019-10-12] MEDS: Aspirin 81 mg Enteric Coated Tablet PO SCH (08:06)
[2019-10-12] MEDS: Lisinopril 20 MG TAB PO SCH (08:07)
[2019-10-12] MEDS: Oxybutynin 5 MG TAB PO SCH (08:08)
[2019-10-12] MEDS: Multivit, Therapeutic 1 TAB PO SCH (08:08)
--- NOTE | 2019-10-12 09:28 | PRG ---
DATE OF SERVICE: 10/12/2019 SUBJECTIVE: Mr. Recinos is doing well. No current complaints. He recently presented with pneumonia and fever. His troponin was mildly elevated at 0.2. After going over Mr. Recinos' symptoms, he states he has had chest pain that lasts seconds. It is worse with deep breath and movement. No other ameliorating, exacerbating, or precipitating factors present. I did review his diagram from 1999. He has a 4-vessel bypass with a saphenous vein graft to the right coronary artery, saphenous vein graft to diagonal, saphenous vein graft to an OM branch, and a MORENO to the LAD. He appears to have diffuse small-vessel disease present distal to the anastomosis of the LAD and the right coronary artery and circumflex artery. OBJECTIVE: VITAL SIGNS: Blood pressure 138/63, pulse 61, temperature 97.7. LUNGS: Clear to auscultation. HEART: Regular rate and rhythm. ABDOMEN: Soft, nontender, nondistended. EXTREMITIES: No edema. PERTINENT LABORATORY DATA: Hemoglobin 10, platelet count 61 after 2 units of platelet transfusion, previous platelet count of 31,000 to 46,000. IMPRESSION: 1. Atypical chest pain. 2. Elevated troponin. 3. Pneumonia. 4. Coronary artery disease. 5. Status post bypass surgery. RECOMMENDATIONS: 1. Mr. Orozco symptoms are not felt to be typical for angina. I do have significant concern for proceeding with more aggressive approach including coronary angiography, which would only be done on diagnostic purpose. I have reservations about proceeding with stent placement given limited dual anti-platelet treatment and continued low platelet count. 2. At this point, I would recommend the following: a. Conservative measure. b. Continue 81 mg aspirin. c. Continue carvedilol 6.25 b.i.d. d. Add Imdur 30 mg daily. e. Consider adding Ranexa. f. Otherwise, from my standpoint, I have no further recommendations. Job ID: [id number]
[2019-10-13 05:11] LABS: #Eosinphils 0.1 thou/uL (0.0-0.7); #Lymphocytes 0.6 thou/uL (1.20-3.40); #Monocytes 0.3 thou/uL (0.11-0.59); #Neutrophils 2.1 thou/uL (1.40-6.50); %Basophils 1.1 % (0.0-1.0); %Eosinophils 2.2 % (0.0-10.0); %Lymphocytes 19.9 % (21.0-51.0); %Monocytes 8.2 % (0.0-10.0); %Neutrophils 68.7 % (42.0-75.0); Hemoglobin 10.8 g/dL (14.0-18.0); Mean Corpuscular HGB CONC 32.1 g/dL (32.0-36.0); Mean Corpuscular Hemoglobin 28.8 pg (27.0-31.0); Mean Corpuscular Volume 89.9 fL (78.0-98.0); Mean Platelet Volume 6.8 fL (7.4-10.4); Platelet Count 53 thou/uL (130-400); RBC Distribution Width 16.5 % (11.5-14.5); Red Blood Cell (RBC) Count 3.74 mill/uL (4.70-6.10)
[2019-10-13] MEDS: Cefdinir 300 MG CAP PO SCH (08:57)
[2019-10-13] MEDS: Multivit, Therapeutic 1 TAB PO SCH (08:57)
[2019-10-13] MEDS: Amiodarone 200 MG TAB PO SCH (08:57)
[2019-10-13] MEDS: Alogliptin 25 MG TAB PO SCH (08:57)
[2019-10-13] MEDS: Furosemide 20 MG TAB PO SCH (08:58)
[2019-10-13] MEDS: Aspirin 81 mg Enteric Coated Tablet PO SCH (08:58)
[2019-10-13] MEDS: Carvedilol 3.125 MG TAB PO SCH (08:58)
[2019-10-13] MEDS: Oxybutynin 5 MG TAB PO SCH (08:58)
[2019-10-13] MEDS: Lisinopril 20 MG TAB PO SCH (08:58)
[2019-10-13] MEDS ORDERED: Isosorbide Mononitrate (ER) 30 MG TAB PO SCH (09:00)
[2019-10-13 12:53] VITALS: BP 101/55; TEMP 97.8
== END 2019-10-13 16:05 | disposition home or self-care (01) | DRG 280 ==
LOC: ERS 15:03 → ERHOLD 21:08 → 2NO 10-05 11:04
PROVIDERS: ADMIT Specialist; ATTEND Specialist
DX: I11.0 Hypertensive heart disease with heart failure (principal); J18.9 Pneumonia, unspecified organism; I21.4 Non-ST elevation (NSTEMI) myocardial infarction; I50.31 Acute diastolic (congestive) heart failure; I45.2 Bifascicular block; D69.3 Immune thrombocytopenic purpura; I48.4 Atypical atrial flutter; D68.9 Coagulation defect, unspecified; E11.9 Type 2 diabetes mellitus without complications; I25.10 Atherosclerotic heart disease of native coronary artery without angina pectoris; Z95.1 Presence of aortocoronary bypass graft; K21.9 Gastro-esophageal reflux disease without esophagitis; E78.5 Hyperlipidemia, unspecified; N40.0 Benign prostatic hyperplasia without lower urinary tract symptoms; Z79.82 Long term (current) use of aspirin; Z79.899 Other long term (current) drug therapy; I27.20 Pulmonary hypertension, unspecified; K74.60 Unspecified cirrhosis of liver; R16.1 Splenomegaly, not elsewhere classified
CPT/HCPCS: 36415; 36416; 36430; 71045; 71046; 71275; 76536; 80048; 80053; 80076; 82550; 83605; 83735; 83880; 84439; 84443; 84479; 84481; 84484; 85025; 85379; 85610; 85730; 86850; 86900; 86901; 87040; 87804; 93005; 93306; 93798; 94640; 94760; 96361; 96365; 96375; J0282; J0456; J0696; J1650; J1815; J1940; J3490; J7050; J7070; J7620; P9035; Q9967

== ENCOUNTER 2020-08-09 18:18 | Inpatient (IN) | payer MEDICARE, OTHER ==
[2020-08-09 18:53] LABS: #Basophils 0.1 thou/uL (0.0-0.2); #Eosinphils 0.1 thou/uL (0.0-0.7); #Lymphocytes 1.6 thou/uL (1.20-3.40); #Monocytes 0.9 thou/uL (0.11-0.59); #Neutrophils 8.1 thou/uL (1.40-6.50); %Basophils 0.5 % (0.0-1.0); %Eosinophils 0.5 % (0.0-10.0); %Lymphocytes 14.6 % (21.0-51.0); %Monocytes 8.6 % (0.0-10.0); %Neutrophils 75.8 % (42.0-75.0); Hemoglobin 9.4 g/dL (14.0-18.0); Mean Corpuscular HGB CONC 31.5 g/dL (32.0-36.0); Mean Corpuscular Hemoglobin 30.5 pg (27.0-31.0); Mean Corpuscular Volume 96.8 fL (78.0-98.0); Platelet Count 101 thou/uL (130-400); RBC Distribution Width 16.1 % (11.5-14.5); Red Blood Cell (RBC) Count 3.09 mill/uL (4.70-6.10); White Blood Cell (WBC) Count 10.6 thou/uL (4.8-10.8)
[2020-08-09 18:55] LABS: Actual Bicarbonate (HCO3a) 16.2 mEq/L (22-28); Analyzer IN Cardio ER; Base Excess (BEa) -7.6 mEq/L (-2.0 to +3.0); Calcium, Ionized (arterial) 1.19 mmol/L (1.12-1.30); Carboxyhemoglobin (COHb) 0.5 gm% (0.0-3.0); Hemoglobin (Hb) 8.8 g/dL (14.0-18.0); O2 Tension (PaO2), arterial 87.4 mmHg (> 70.0); Potassium - ABG Lab 6.24 mmol/L (3.70-5.30)
[2020-08-09 19:02] LABS: Puncture Site RRA
[2020-08-09 19:17] LABS: ALT (SGPT) 20 U/L (8-55); AST (SGOT) 34 U/L (5-34); Albumin 3.4 g/dL (3.4-4.8); Alkaline Phosphatase 93 U/L (40-110); Anion Gap 20 mmol/L (10-20); BUN (Urea Nitrogen) 54 mg/dL (8.4-25.7); Bilirubin, Total 1.4 mg/dL (0.2-1.2); CK (CPK) 83 U/L (30-200); Calc. Creatinine Clearance 0 mL/min (70-130); Calcium 8.9 mg/dL (7.8-10.44); Carbon Dioxide 16 mmol/L (23-31); Chloride 107 mmol/L (98-107); Estimated GFR-MDRD 35; Globulin 3.3 g/dL (2.4-3.5); Glucose 132 mg/dL (83-110); Lipase 19 U/L (8-78); Potassium 6.5 mmol/L (3.5-5.1); Protein, Total 6.7 g/dL (5.8-8.1); Sodium 136 mmol/L (136-145)
[2020-08-09] MEDS ORDERED: Aspirin Chewable 81 MG TAB ONE (19:27)
[2020-08-09] MEDS ORDERED: Enoxaparin Sodium 100 MG/ML SYRINGE ONE (19:27)
[2020-08-09 19:42] LABS: CKMB 10.5 ng/mL (0-6.6)
--- NOTE | 2020-08-09 20:29 | CT ---
CT ANGIOGRAM OF THE CHEST: 08/09/20 HISTORY: Elevated D-dimer. Hypotension. COMPARISON: 10/04/19. TECHNIQUE: CT angiogram of the chest is performed in the axial plane. Three dimensional reformatted images are s ubmitted for interpretation. FINDINGS: Lower neck and axilla do not demonstrate any masses or lymphadenopathy. No mediastinal mass or hematoma. There are enlarged prevascular and paratracheal lymph nodes. Represe ntative enlarged right paratracheal lymph node measures 2.0 x 1.2 cm. No significant hilar lymphadeno neema. Normal heart size. No significant pericardial fluid. There are coronary artery calcifications. Limite d evaluation of the aorta due to poor contrast bolus. There is atherosclerosis. Subdiaphragmatic structures demonstrate contracted gallbladder with gallstone. There is nodularity of the liver suggesting cirrhosis. There is perihepatic and perisplenic fluid. Mild dilatation of the p ortal vein and there is evidence of splenic and gastroesophageal varices. There is splenomegaly. There is diffuse edema in the soft tissues suggesting anasarca. Trachea and central bronchi are patent. Septal thickening in the lung parenchyma, similar to the prev ious examination. Small cavitary focus in the upper lobe, measures 0.6 cm. No consolidation. No pleur al effusion or pneumothorax. There are no lytic or blastic lesions in the osseous structures. Adequate contrast opacification of the pulmonary arterial system to the level of segmental arteries. No filling defect to suggest thromboembolism. IMPRESSION: 1. No evidence of pulmonary artery embolism to the level of the segmental arteries. 2. Cirrhosis. Portal hypertension and varices. 3. Cardiomegaly. 4. Splenomegaly and cholelithiasis. POS: PPP
--- NOTE | 2020-08-09 20:57 | RAD ---
ONE VIEW CHEST: 08/09/20 COMPARISON: 10/07/19. HISTORY: Hypotension. FINDINGS: There are sternotomy wires and cardiomegaly. Pulmonary vessels are prominent. There are chronic lung parenchymal changes, without mass or consolidation. No pleural effusion or pneumothorax. No acute os seous abnormalities. Cervical fusion hardware is once again demonstrated. IMPRESSION: No acute cardiopulmonary process. Chronic lung parenchymal changes. POS: PPP
[2020-08-09] MEDS ORDERED: Furosemide 40 MG/4 ML VIAL ONE (21:48)
[2020-08-09] MEDS ORDERED: DOBUTamine 500 mg/250 ml 250 ML ONE (21:48)
[2020-08-09 22:20] LABS: Lactic Acid 3.4 mmol/L (0.5-2.2)
[2020-08-09 22:43] LABS: Troponin I 1.937 ng/mL (< 0.028)
[2020-08-09] MEDS ORDERED: DOPamine 400 MG/D5W 250 ML 250 ML ONE (23:10)
[2020-08-09] MEDS ORDERED: Norepinephrine 8 MG/0.9% NS 250 ML ONE (23:34)
[2020-08-10] MEDS: Sodium Chloride 0.9% 1,000 ML IV SCH ×6 (00:20→20:08)
[2020-08-10] MEDS ORDERED: Dextrose 50% Abboject 50 ML SYRINGE IVP PRN (00:45)
[2020-08-10] MEDS ORDERED: Dextrose 5% in Water 1,000 ML IV PRN (00:45)
[2020-08-10] MEDS ORDERED: Sodium Chloride 0.45% 1,000 ML IV SCH (00:45)
[2020-08-10] MEDS ORDERED: DOBUTamine 500 mg/250 ml 500 MG in Premix Bag 1 BAG IVPB SCH (00:45)
[2020-08-10] MEDS ORDERED: Furosemide 100 mg/100 ml in NS IVPB SCH (00:45)
[2020-08-10 01:29] LABS: Critical Call Chem Troponin I RESULT DECREASING; Troponin I 1.841 ng/mL (< 0.028)
[2020-08-10 01:41] VITALS: BMI 28.5
--- NOTE | 2020-08-10 01:58 | HP ---
CHIEF COMPLAINT ON ADMISSION: Hypotension and exacerbation of CHF along with elevated cardiac enzymes. HISTORY OF PRESENT ILLNESS: The patient is a 74-year-old male with a long history of CHF, who was noted by his police justice on the evening of admission to have a systolic blood pressure in the 60s, at which point, she told him she thought he needed to come to the emergency room. He finally agreed 2 to 3 hours later and did in fact arrive in the ER with a systolic in the 70s, at which point, workup was begun showing several abnormalities in his evaluation. He denied any chest pain or shortness of breath. He has not had any diaphoresis, nausea, vomiting, or any other unusual discomfort. Blood sugars have been running in the 140s. However, he has a renal insufficiency with a BUN of 54 and creatinine 1.9. He has hyperkalemia with a potassium of 6.5. He had a D-dimer come back elevated at 5.7, but this after CT scan proved to be a false positive. He has arrived with a lactic acid at 4.7 and a CK-MB of 10.5 and a troponin of 2.2. Dr. Rocha was contacted by the ER physician to place him in ICU such that a dobutamine drip can be utilized to keep a systolic above 90, thereby allowing effective diuresis with furosemide. PAST MEDICAL HISTORY: As mentioned previously, has been hospitalized numerous times for CHF. The last was in September of 2019 when he actually had a non-STEMI and arrived in congestive heart failure. Other past medical conditions include his being a type 2 diabetic, GERD, dyslipidemia, and coronary artery disease. He also has BPH, ITP, erectile dysfunction, obstructive sleep apnea, for which he refuses to wear a CPAP. The aforementioned non-STEMI, carotid occlusion, and systolic congestive heart failure. He has diverticulosis. PAST SURGICAL HISTORY: His past surgeries include cardiac bypass in 1990 and cervical stenosis repair by Dr. Baird in 1987 and colonoscopy in 2010. PAST PSYCHIATRIC HISTORY: Negative. SOCIAL HISTORY: He drinks socially. Does not smoke. 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 ALLERGIES: HE HAS NO KNOWN DRUG ALLERGIES. MEDICATIONS ON ADMISSION: Include; 1. Onglyza 5 mg daily. 2. Metformin 500 mg daily. 3. Saw palmetto. 4. Ranexa 500 mg b.i.d. 5. Actos 30 mg daily. 6. Ditropan 5 mg daily. 7. Omeprazole 20 mg at bedtime. 8. Niacin 100 mg b.i.d. 9. Daily multiple vitamin. 10. He recently been discontinued on Imdur and benazepril due to hypotension. 11. He had recently been discontinued on glimepiride due to hemoglobin A1c of less than 5. 12. He still takes aspirin 81 mg daily and amiodarone 400 mg daily. REVIEW OF SYSTEMS: At the time of admission; CONSTITUTIONAL: He admits to fatigue and general malaise, but denies any pain, fever, cough, or shortness of breath. HEENT: Denies drainage or lesions in his head, ears, nose, or throat. CHEST: Denies cough or dyspnea except with exertion, CARDIOVASCULAR: Denies palpitations or chest pain. GI: Denies nausea, vomiting, or diarrhea. : Denies dysuria or blood in urine or stool. MUSCULOSKELETAL: He has severe lower extremity weakness and admits to general muscle weakness of sore as a muscle weakness and lower extremity edema. SKIN: No new rashes or lesions. NEUROLOGIC: Denies headaches, blurred vision, or trouble with mentation. PSYCHIATRIC: At this time, denies depression, but he is mildly anxious. PHYSICAL EXAMINATION: At the time of admission; VITAL SIGNS: Blood pressure is 74/45, pulse 93, respirations 16, O2 saturation at up to 97%. GENERAL: This is an obese, alert, and cooperative male in no acute distress, resting comfortably on his cot. HEENT: Normocephalic and atraumatic. Pupils are equal, round, and reactive to light. Arcus senilis bilaterally. Pupils at 2 to 3 mm bilaterally. TMs, nares, and pharynx are clear. NECK: Supple. Trachea midline. CHEST: Clear to auscultation. HEART: Irregular rate and irregular rhythm. ABDOMEN: Soft and mildly distended, nontender with both splenomegaly and hepatomegaly. : Deferred. EXTREMITIES: With 3+ edema from the knees down bilaterally. SKIN: No acute rashes or lesions. Normal turgor. NEUROLOGIC: Cranial nerves are intact. Mental status is clear. Gait and cerebellar function untested. Sensory exam is grossly intact. LABORATORY DATA: On admission, WBCs are 10.6, hemoglobin 9.4, hematocrit 29.9, and platelets at 101. Sodium at 136, potassium 6.5, chloride 107, CO2 of 16, BUN 54, creatinine 1.9, and glucose at 132. D-dimer 5.76. ABG; pH is 7.4, pO2 is 87.4, and pCO2 is 27. Lactic acid initially elevated at 4.7, repeated 3 hours later, it is down to 3.4. Total bilirubin 1.4. Liver functions otherwise unremarkable. CK- MB at 10.5, troponin at 2.2, and BNP elevated at 3162. CT chest significant for cardiomegaly, cirrhosis, splenomegaly, and cholelithiasis. No evidence of pulmonary embolism. Chest x-ray noteworthy for cardiomegaly. ASSESSMENT: 1. Hypotension due to exacerbation of congestive heart failure. 2. Non-ST segment elevation myocardial infarction probably secondary to congestive heart failure and demand ischemia 3. Noninsulin-dependent diabetes. 4. Hyperkalemia. PLAN: Plan will be ICU admission. Pressors to raise systolic pressure, thus allowing for diuresis with IV Lasix. Cardiology consultation, Dr. Carrasco is already aware of the patient's presence and is already have been consulted by the ER physician and serial re-evaluation. Job ID: [id number] MTDD
[2020-08-10 03:50] LABS: Hemoglobin A1c 5.7 % (4.0-6.0)
[2020-08-10 04:06] LABS: Anion Gap 19 mmol/L (10-20); BUN (Urea Nitrogen) 53 mg/dL (8.4-25.7); Calc. Creatinine Clearance 44 mL/min (70-130); Calcium 8.4 mg/dL (7.8-10.44); Carbon Dioxide 14 mmol/L (23-31); Cardiac Risk 4.1 (Less than 4.5); Chloride 108 mmol/L (98-107); Cholesterol 119 mg/dl (< 200 Desired); Estimated GFR-MDRD 39; Glucose 138 mg/dL (83-110); HDL Cholesterol 29 mg/dL (>60 Neg Risk); LDL Cholesterol, Calculated 75 mg/dL; Potassium 6.4 mmol/L (3.5-5.1); Sodium 135 mmol/L (136-145); Triglycerides 75 mg/dL (Less than 150)
[2020-08-10 04:10] LABS: CKMB 6.8 ng/mL (0-6.6); Critical Call CKMB RESULT DECREASING
--- NOTE | 2020-08-10 08:02 | RAD ---
XR Chest 1 View Portable History: Central line placement Comparison: Radiograph same day Findings: Left subclavian central venous catheter is in place with tip at the inferior SVC. Remainder of the findings are unchanged. No pneumothorax. Moderate peripheral interstitial fibrosis. Impression: Uncomplicated left subclavian central venous catheter placement.
[2020-08-10] MEDS: Alogliptin 6.25 MG TAB PO SCH (08:11)
[2020-08-10] MEDS: Enoxaparin Sodium 30 MG/0.3 ML SYRINGE SC SCH (08:11)
[2020-08-10] MEDS: Aspirin 81 mg Enteric Coated Tablet PO SCH (08:11)
[2020-08-10 08:52] LABS: Anion Gap 18 mmol/L (10-20); BUN (Urea Nitrogen) 53 mg/dL (8.4-25.7); Calc. Creatinine Clearance 45 mL/min (70-130); Calcium 8.2 mg/dL (7.8-10.44); Carbon Dioxide 15 mmol/L (23-31); Chloride 110 mmol/L (98-107); Estimated GFR-MDRD 41; Glucose 128 mg/dL (83-110); Sodium 137 mmol/L (136-145)
[2020-08-10 09:00] LABS: Critical Call Chem Troponin I RESULT DECREASING
[2020-08-10] MEDS ORDERED: Amiodarone 200 MG TAB PO SCH (09:00)
[2020-08-10] MEDS ORDERED: Carvedilol 6.25 MG TAB PO SCH (09:00)
--- NOTE | 2020-08-10 10:04 | CON ---
DATE OF CONSULTATION: 08/10/2020 CONSULTING PHYSICIAN: Dr. Rocha REASON FOR CONSULTATION: ICU management. HISTORY OF PRESENT ILLNESS: The patient is a 74-year-old male, who was found to have blood pressure lower than normal. Last night, was brought to the ER. His systolic was measuring in the 60s and 70s. Normally, it looks like it runs in the 80s and 90s per a notebook that the patient carries with him. Surprisingly, he was not having any associated symptoms such as chest pain, nausea, vomiting, diarrhea, cough, or congestion. He was initially placed on dobutamine that has been turned off and he is now on a Levophed drip. PAST MEDICAL HISTORY: 1. Looks like previous echoes have actually showed normal ejection fraction, but he does have a history of bifascicular block. 2. Bpr-LO-annfsqv elevation UT. 3. ITP. 4. Gastroesophageal reflux. 5. Hyperlipidemia. 6. Coronary artery disease. 7. Benign prostatic hypertrophy. 8. Erectile dysfunction. 9. COREY, for which he refused to wear CPAP. 10. Diverticulosis. PAST SURGICAL HISTORY: 1. Coronary artery bypass grafting surgery in 1990. 2. Cervical stenosis repair. 3. Colonoscopy. SOCIAL HISTORY: Drinks socially. Does not smoke. He is . 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 ALLERGIES: NONE. MEDICATIONS: These were reviewed. See summary section of chart. REVIEW OF SYSTEMS: Otherwise negative. PHYSICAL EXAMINATION: VITAL SIGNS: Temperature 98.1, pulse 85, blood pressure 86/59 on Levophed 10 mcg/minute, and O2 saturation between 91% and 94%. GENERAL: He is awake and alert, no distress. HEENT: Pupils are reactive. Sclerae are anicteric. Oropharynx clear. NECK: No adenopathy or JVD. No bruits. LUNGS: Clear to auscultation. No wheezing or rhonchi. CARDIOVASCULAR: S1 and S2 regular with third heart sound. ABDOMEN: Soft and nontender to palpation. Old surgical scar, midline. EXTREMITIES: No clubbing, cyanosis, or edema. LABORATORY DATA: White blood cell count 10.6, hematocrit 29.9, and platelet count 101. D-dimer 5.7. PH 7.4, pCO2 of 27, PO2 of 87, initially 100% non-rebreather. Sodium 135, potassium 6.4, chloride 108, CO2 of 14, anion gap 13, BUN 53, creatinine 1.7, and glucose 138. Cortisol level 27. TSH 1.4. X-ray showed chronic interstitial change without evidence of mass, effusion, or infiltrate. ASSESSMENT: 1. Hypotension-etiology not clear, but may be secondary to his heart situation along with current antihypertensives. 2. Hyperkalemia-etiology unclear, but may be reflective of TROY inhibitor use. 3. No evidence of sepsis, current workup plan with hold TROY inhibitor. 4. Wean off Levophed as tolerated. 5. Cardiology consultation. 6. We will be happy to follow with you while he is in the ICU. Job ID: [id number]
[2020-08-10] MEDS: Albuterol Sulfate 2.5 mg/3 ml Neb NEB SCH ×4 (11:00→21:44)
[2020-08-10] MEDS: Insulin Regular 300 UNITS/3 ML VIAL SC PRN ×2 (11:24→16:23)
[2020-08-10] MEDS: Norepinephrine 8 MG/0.9% NS 250 ML IVPB SCH ×2 (13:05→20:09)
[2020-08-10 13:16] LABS: SARS-CoV-2 MS2 Positive; SARS-CoV-2 N Gene Negative; SARS-CoV-2 S Gene Negative; SARS-CoV-2 by NAA Not Detected (NotDetected); SARS-CoV-2 orf1ab Negative
[2020-08-10] MEDS ORDERED: Sodium Chloride 0.9% 500 ML IV SCH (17:30)
--- NOTE | 2020-08-10 18:00 | CON ---
DATE OF CONSULTATION: REASON FOR CONSULTATION: Hypotension. HISTORY OF PRESENT ILLNESS: Mr. Recinos is a very pleasant 74-year-old gentleman, whom I have seen and evaluated in the past. He was last seen 2 weeks ago in the office. His main complaint was shortness of breath and lower extremity edema. His blood pressure was marginal at 100 systolic. His echo did suggest LVEF 45% to 50% with grade 3 diastolic dysfunction. His EKG showed a right bundle-branch block with appropriate amplitude and voltage. He recently called the office complaining of a blood pressure in the 60s to 70s. It was recommended he proceed to the emergency room. He states he had minimal symptoms, but was concerned about low blood pressure. During my interview today, he again states he feels fairly good without complaints. He is currently on low-dose Levophed. PAST MEDICAL HISTORY: CAD, status post bypass surgery; thrombocytopenia; atrial flutter; CABG x5 in 1990; pulmonary hypertension; cirrhosis; cardiomyopathy; previous hypotension, diabetes mellitus; acid reflux; chronic anemia; advanced diastolic dysfunction. HOME MEDICATIONS: Include: 1. Lasix. 2. Potassium. 3. Metformin. 4. Carvedilol. 5. Oxybutynin. 6. Omeprazole. 7. Benazepril. 8. Pioglitazone. 9. Aspirin. 10. Multivitamin. 11. Ranolazine. 12. Saw palmetto. 13. Niacin. SOCIAL HISTORY: No current tobacco or alcohol use. REVIEW OF SYSTEMS: Ten-point review of systems is reviewed and as above, otherwise negative. PHYSICAL EXAMINATION: GENERAL: Patient is a pleasant 74-year-old gentleman who is in no acute distress. The patient appears their stated age. VITAL SIGNS: Blood pressure 102/59, pulse 83, respirations 20. NEUROLOGIC: The patient is alert and oriented x3 with no focal neurologic deficits. HEENT: Sclerae without icterus. Mouth has moist mucous membranes with normal pallor. NECK: No JVD. Carotid upstroke brisk. No bruits bilaterally. LUNGS: Clear to auscultation with unlabored respirations. BACK: No scoliosis or kyphosis. CARDIAC: Regular rate and rhythm with normal S1 and S2. No S3 or S4 noted. No significant rubs, murmurs, thrills, or gallops noted throughout the precordium. PMI is not displaced. There is no parasternal heave. ABDOMEN: Soft, nontender, nondistended. No peritoneal signs present. No hepatosplenomegaly. No abnormal striae. EXTREMITIES: 2+ femoral and 2+ dorsalis pedis pulses. No cyanosis, clubbing, or edema. SKIN: No gross abnormalities. PERTINENT LABORATORY DATA: Include hemoglobin 9.4, hematocrit 29.9, and platelet count of 101. EKG shows normal sinus rhythm with right bundle-branch block, nonspecific ST-T wave changes. Peak troponin 1.7, CK-MB of 10.5. IMPRESSION: 1. Hypotension. 2. Coronary artery disease. 3. Elevated troponin. 4. Advanced diastolic dysfunction. RECOMMENDATIONS: I did review Mr. Recinos's echo once again. He does not appear to have significant LV wall thickness. There is no echo brightness of the LV that would suggest amyloidosis. His CT scan did suggest cirrhosis. We will recommend iron studies to assess for hemochromatosis. We will try and wean off Levophed. We will give him IV fluids x500 mL to see if his blood pressure improves. At this point, we would agree with stopping antihypertensive medications. We would stop Lasix, carvedilol in addition to benazepril. Elevated troponin likely secondary to demand ischemia. We will continue to treat medically given no acute ST-T wave changes and no symptoms of angina. Job ID: [id number]
[2020-08-11] MEDS: Sodium Chloride 0.9% 1,000 ML IV SCH (02:27)
[2020-08-11 05:25] LABS: Anion Gap 16 mmol/L (10-20); BUN (Urea Nitrogen) 46 mg/dL (8.4-25.7); Calc. Creatinine Clearance 53 mL/min (70-130); Calcium 8.1 mg/dL (7.8-10.44); Carbon Dioxide 16 mmol/L (23-31); Chloride 111 mmol/L (98-107); Estimated GFR-MDRD 49; Glucose 156 mg/dL (83-110); Potassium 5.5 mmol/L (3.5-5.1); Sodium 137 mmol/L (136-145)
[2020-08-11 05:30] LABS: Troponin I 1.919 ng/mL (< 0.028)
[2020-08-11] MEDS: Insulin Regular 300 UNITS/3 ML VIAL SC PRN ×2 (06:18→17:38)
[2020-08-11] MEDS ORDERED: Furosemide 40 MG/4 ML VIAL SLOW IVP SCH (06:59)
--- NOTE | 2020-08-11 07:41 | PRG ---
DATE OF SERVICE: 08/11/2020 SUBJECTIVE: Mr. Recinos has had progressive decline in his O2 sats overnight. He is more dyspneic than yesterday. I noted that Cardiology had been giving him IV fluids 200 mL/hour. , the nurse turned that off during the night. The patient has been placed on oxygen by face mask today. OBJECTIVE: VITAL SIGNS: His temperature is 97.8, pulse 90, blood pressure 99/72, O2 saturation 93%. Total intake 5435, output 1115. HEENT: Unremarkable. NECK: No adenopathy or JVD. LUNGS: Inspiratory crackles on both bases. CARDIAC: S1, S2. Regular. ABDOMEN: Soft, nontender to palpation. EXTREMITIES: No clubbing, cyanosis, edema. LABORATORY DATA: Sodium 137, potassium 5.5, chloride 111, CO2 of 16, BUN 46, creatinine 1.4, glucose 156. White blood count 10.6, hematocrit 29.9, and platelet count 101. IMAGING: Chest x-ray is pending. ASSESSMENT: 1. Fluid overload secondary to diastolic congestive heart failure. 2. Severe left ventricular hypertrophy suspicious for amyloidosis. 3. Hyperkalemia, which is mild and improved after holding his angiotensin-converting enzyme inhibitor. PLAN: I think we should go ahead and stop his IV fluids and give him a dose of Lasix. I will check a chest x-ray. He needs to have his labs monitored daily for several days. The patient needs to remain in the ICU while he is on the Levophed drip. Overall, his prognosis remains poor secondary to his cardiac issues. Job ID: [id number]
[2020-08-11] MEDS: Albuterol Sulfate 2.5 mg/3 ml Neb NEB SCH ×5 (07:51→21:49)
[2020-08-11] MEDS: Aspirin 81 mg Enteric Coated Tablet PO SCH ×3 (08:41→08:48)
[2020-08-11] MEDS: Enoxaparin Sodium 30 MG/0.3 ML SYRINGE SC SCH (08:43)
--- NOTE | 2020-08-11 09:18 | RAD ---
SINGLE VIEW OF THE CHEST: COMPARISON: 08/09/2020. HISTORY: Increasing dyspnea. FINDINGS: A single view of the chest shows an enlarged but stable cardiomediastinal silhouette. The patient is status post CABG. The central venous catheter is unchanged in position. Diffuse increased intersti tial markings are present. Atelectasis is seen in both lung bases. IMPRESSION: Stable exam. POS: EAA
[2020-08-11] MEDS: Norepinephrine 8 MG/0.9% NS 250 ML IVPB SCH ×2 (10:53→20:49)
[2020-08-11] MEDS: Ondansetron PF 4 MG/2 ML Vial IVP PRN (11:09)
[2020-08-11] MEDS: Alogliptin 6.25 MG TAB PO SCH (12:11)
[2020-08-11] MEDS: Acetaminophen 325 MG TAB PO PRN (14:52)
[2020-08-11] MEDS: Furosemide 40 MG/4 ML VIAL SLOW IVP SCH (14:52)
--- NOTE | 2020-08-11 17:51 | PRG ---
DATE OF SERVICE: 08/11/2020 SUBJECTIVE: Mr. Recinos developed increased shortness of breath overnight. He had been receiving 200 mL of IV fluids. He also got 500 mL bolus of fluids due to hypotension yesterday. He appears to be fluid overloaded. He continues to be on Levophed. He is on a low dose. He continues to not complain of chest pain or pressure. His main complaint is not being able to eat. OBJECTIVE: GENERAL: Patient is a pleasant male, who is in no acute distress. The patient appears their stated age. VITAL SIGNS: Blood pressure 89/77, pulse 108, respirations 20. NEUROLOGIC: The patient is alert and oriented x3 with no focal neurologic deficits. HEENT: Sclerae without icterus. Mouth has moist mucous membranes with normal pallor. NECK: No JVD. Carotid upstroke brisk. No bruits bilaterally. LUNGS: Crackle noted bilaterally. BACK: No scoliosis or kyphosis. CARDIAC: Regular rate and rhythm with normal S1 and S2. No S3 or S4 noted. No significant rubs, murmurs, thrills, or gallops noted throughout the precordium. PMI is not displaced. There is no parasternal heave. ABDOMEN: Soft, nontender, nondistended. No peritoneal signs present. No hepatosplenomegaly. No abnormal striae. EXTREMITIES: 2+ femoral and 2+ dorsalis pedis pulses. No cyanosis, clubbing, or edema. SKIN: No gross abnormalities. PERTINENT LABORATORY DATA: Hemoglobin 9.4, hematocrit 29.9. IMPRESSION: 1. Persistent hypotension. 2. CAD. 3. Status post bypass surgery. 4. Advanced diastolic dysfunction. 5. Renal insufficiency. 6. Cirrhosis. RECOMMENDATIONS: Current primary etiology to hypotension is unknown. His last LVEF, I did review in the office. The LVEF was estimated at 45% to 50%. He did have grade 3 to 4 diastolic dysfunction. His EKG did not suggest low voltage. His LV wall thickness did not appear thick. He does appear to have diastolic dysfunction, and we will treat appropriately. We will recommend repeating his echo and obtaining a random cortisol level. He has been given low-dose Lasix due to fluid overload. Again, we will recheck echo. Job ID: [id number]
[2020-08-12 04:33] LABS: #Eosinphils 0.1 thou/uL (0.0-0.7); #Lymphocytes 1.5 thou/uL (1.20-3.40); #Monocytes 1.2 thou/uL (0.11-0.59); #Neutrophils 7.6 thou/uL (1.40-6.50); %Basophils 0.4 % (0.0-1.0); %Eosinophils 0.9 % (0.0-10.0); %Lymphocytes 14.5 % (21.0-51.0); %Neutrophils 73.2 % (42.0-75.0); Mean Corpuscular Hemoglobin 30.9 pg (27.0-31.0); Mean Corpuscular Volume 96.6 fL (78.0-98.0); Mean Platelet Volume 9.9 fL (7.4-10.4); Platelet Count 126 thou/uL (130-400); RBC Distribution Width 17.4 % (11.5-14.5); Red Blood Cell (RBC) Count 2.91 mill/uL (4.70-6.10); White Blood Cell (WBC) Count 10.4 thou/uL (4.8-10.8)
[2020-08-12 04:55] LABS: Anion Gap 12 mmol/L (10-20); BUN (Urea Nitrogen) 50 mg/dL (8.4-25.7); Calc. Creatinine Clearance 55 mL/min (70-130); Calcium 8.1 mg/dL (7.8-10.44); Carbon Dioxide 19 mmol/L (23-31); Chloride 108 mmol/L (98-107); Estimated GFR-MDRD 51; Glucose 177 mg/dL (83-110); Potassium 4.9 mmol/L (3.5-5.1); Sodium 134 mmol/L (136-145)
[2020-08-12] MEDS: Albuterol Sulfate 2.5 mg/3 ml Neb NEB SCH ×5 (06:56→21:49)
[2020-08-12] MEDS: Norepinephrine 8 MG/0.9% NS 250 ML IVPB SCH (07:41)
--- NOTE | 2020-08-12 08:25 | PRG ---
DATE OF SERVICE: 08/12/2020 SUBJECTIVE: He looks better today compared to yesterday. He has been on high-flow oxygen overnight. His O2 saturation was 100% when I arrived. His probe on his ear does not work very well. OBJECTIVE: VITAL SIGNS: His last temperature is 97.8, pulse 107, blood pressure 104/70, O2 saturation 100%. A 24-hour intake 660, output 1115. His weight is 192 pounds, up 10 pounds from admission. HEENT: Unremarkable. NECK: No adenopathy or JVD. LUNGS: He has a few crackles in the bases. CARDIAC: S1 and S2. Regular. ABDOMEN: Soft. EXTREMITIES: He has 4+ edema from his knees downward. LABORATORY DATA: Sodium 134, potassium 4.9, chloride 108, CO2 of 19, BUN 50, creatinine 1.3, glucose 177. White blood cell count 10.4, hematocrit 28.1, and platelet count 126. ASSESSMENT: 1. Hypotension requiring Levophed. 2. Acute hypoxic respiratory failure. 3. Fluid overload. PLAN: 1. Needs continued diuresis. 2. Wean the nasal cannula as tolerated. 3. Wean off vasopressors as tolerated. Job ID: [id number]
[2020-08-12] MEDS: Aspirin 81 mg Enteric Coated Tablet PO SCH (08:50)
[2020-08-12] MEDS: Enoxaparin Sodium 30 MG/0.3 ML SYRINGE SC SCH (08:51)
[2020-08-12] MEDS: Alogliptin 6.25 MG TAB PO SCH (08:58)
--- NOTE | 2020-08-12 09:49 | CON ---
DATE OF CONSULTATION: SUBJECTIVE: Mr. Recinos continues to not have any current symptoms. His blood pressure remains low after trying to wean off the Levophed. He is on low-dose Levophed currently. IV fluids have been discontinued. He did diurese some. He continues with lower extremity edema, although states it has improved. After reviewing his labs, his BNP has been markedly elevated. His previous random cortisol level also was within normal limits. His blood cultures have been negative. OBJECTIVE: VITAL SIGNS: Blood pressure 104/70, pulse 100, and respirations 20. LUNGS: Crackles noted bilaterally. HEART: Regular rate and rhythm. Tachycardic. ABDOMEN: Soft, nontender, and nondistended. EXTREMITIES: 2+ pitting edema. PERTINENT LABORATORY DATA: Hemoglobin 9.0, hematocrit 28.1. IMPRESSION: 1. Acute on chronic diastolic heart failure. 2. Elevated BNP. 3. Hypotension. 4. Coronary artery disease. 5. Status post bypass surgery. RECOMMENDATIONS: It appears renal insufficiency has been ruled out. His BNP is markedly elevated. His last echo performed a month ago did show LVEF 45% to 50%. He did appear to also have advanced diastolic dysfunction. His current situation, he likely is either developed acute systolic heart failure or is all related to acute diastolic heart failure. I would like to change his Levophed to dobutamine for better inotropic support. We will review his echo. May also consider milrinone. ADDENDUM: Mr. Recinos continues to be hypotensive. After reviewing his echo, his LVEF was markedly diminished. This was felt to be a new finding. He has required dopamine in addition to Levophed. I discussed options in full detail with Mr. Recinos as well as his significant other, Elvie. I discussed transferring to [facility]. I did have an accepting physician. This would be a transfer for more advanced heart failure care in addition to potential LVAD. After discussing options, Mr. Recinos was not interested in proceeding with [facility]. He does understand that there are some limitations on what we can offer at our facility. At this point, he is happy with proceeding with the continued medical therapy. He understands this may fail. I have consulted with Dr. Pardeep Ayala. We will continue with current treatment. We will try and increase the blood pressure by increasing Levophed for better pressor support. I also discussed the DNR status with Mr. Recinos. Mr. Recinos is a DNR. He states he has a DNR on file. Elvie was present during the discussion. No cardioversion, no intubation. We will continue to treat aggressively outside of CPR measures. Job ID: [id number]
[2020-08-12] MEDS: DOBUTamine 500 mg/250 ml 500 MG in Premix Bag 1 BAG IVPB SCH (11:52)
[2020-08-12] MEDS: Insulin Regular 300 UNITS/3 ML VIAL SC PRN ×2 (11:54→16:54)
[2020-08-12] MEDS: Furosemide 40 MG/4 ML VIAL SLOW IVP SCH (14:59)
[2020-08-12] MEDS: Acetaminophen 325 MG TAB PO PRN (16:48)
[2020-08-13] MEDS: Ondansetron PF 4 MG/2 ML Vial IVP PRN (04:46)
[2020-08-13 04:48] LABS: #Lymphocytes 0.7 thou/uL (1.20-3.40); #Monocytes 0.5 thou/uL (0.11-0.59); #Neutrophils 3.6 thou/uL (1.40-6.50); %Basophils 0.3 % (0.0-1.0); %Eosinophils 0.9 % (0.0-10.0); %Lymphocytes 13.9 % (21.0-51.0); %Monocytes 9.5 % (0.0-10.0); %Neutrophils 75.5 % (42.0-75.0); Hemoglobin 7.9 g/dL (14.0-18.0); Mean Corpuscular HGB CONC 31.6 g/dL (32.0-36.0); Mean Corpuscular Volume 98.3 fL (78.0-98.0); Mean Platelet Volume 9.8 fL (7.4-10.4); Platelet Count 47 thou/uL (130-400); RBC Distribution Width 17.3 % (11.5-14.5); Red Blood Cell (RBC) Count 2.55 mill/uL (4.70-6.10); White Blood Cell (WBC) Count 4.8 thou/uL (4.8-10.8)
[2020-08-13 05:18] LABS: Anion Gap 13 mmol/L (10-20); BUN (Urea Nitrogen) 52 mg/dL (8.4-25.7); Calc. Creatinine Clearance 60 mL/min (70-130); Carbon Dioxide 18 mmol/L (23-31); Chloride 106 mmol/L (98-107); Estimated GFR-MDRD 53; Glucose 175 mg/dL (83-110); Potassium 4.9 mmol/L (3.5-5.1); Sodium 132 mmol/L (136-145)
[2020-08-13] MEDS: Albuterol Sulfate 2.5 mg/3 ml Neb NEB SCH ×5 (07:07→22:26)
[2020-08-13] MEDS: DOBUTamine 500 mg/250 ml 500 MG in Premix Bag 1 BAG IVPB SCH (08:57)
[2020-08-13] MEDS: Alogliptin 6.25 MG TAB PO SCH (09:01)
[2020-08-13] MEDS: Aspirin 81 mg Enteric Coated Tablet PO SCH (09:09)
--- NOTE | 2020-08-13 09:20 | PRG ---
DATE OF SERVICE: 08/13/2020 SUBJECTIVE: He is sitting up in bed on the phone. Does not appear to be in any distress. He is on Levophed and dobutamine. OBJECTIVE: VITAL SIGNS: His blood pressure is 83/63, pulse 109, respiratory rate 19, O2 saturation 96%, temperature 97.7. HEENT: Unremarkable. NECK: No JVD. LUNGS: Few crackles in the bases. CARDIAC: S1, S2. Tachycardic. ABDOMEN: Soft. EXTREMITIES: Trace edema. LABORATORY DATA: White blood cell count 4.8, hematocrit 25.1, and platelet count 47. Sodium 132, potassium 4.9, chloride 106, CO2 of 18, BUN 52, creatinine 1.3, glucose 175. BNP 7841. ASSESSMENT: 1. Hypotension secondary to acute systolic heart failure on top of chronic diastolic heart failure. 2. Acute hypoxic respiratory failure. 3. Fluid overload. 4. Developing thrombocytopenia. PLAN: 1. His Lovenox is being held secondary to thrombocytopenia. 2. He will continue the dobutamine and norepinephrine. Dr. Ayala has been consulted, and I would assume some changes are going to be made in that regard. 3. Would like to continue diuretics if at all possible. 4. Will need to remain in ICU while he is on the vasopressors and inotropes. Job ID: [id number]
[2020-08-13] MEDS: Norepinephrine 8 MG/0.9% NS 250 ML IVPB SCH (10:40)
[2020-08-13] MEDS ORDERED: Morphine 2 MG/ML VIAL SLOW IVP PRN (11:15)
--- NOTE | 2020-08-13 11:22 | PRG ---
DATE OF SERVICE: 08/13/2020 SUBJECTIVE: Mr. Recinos's blood pressure appears to be more stable. He continues to be on Dobutrex in addition to Levophed. He is seen sitting up and eating. He is off high-flow oxygen. Unfortunately, his platelet count has decreased to 47,000. He has had issues with thrombocytopenia in the past. OBJECTIVE: VITAL SIGNS: Blood pressure 83/63, pulse 100, and respirations 20. LUNGS: Crackles noted bilaterally. HEART: Regular rate and rhythm. Slightly tachycardic. ABDOMEN: Soft, nontender, and nondistended. EXTREMITIES: 2+ pitting edema. PERTINENT LABORATORY DATA: Hemoglobin 7.9, hematocrit 25.1, and platelet count 47, down from 126. IMPRESSION: 1. [id number]-ssldtyo systolic heart failure. 2. Likely cardiogenic shock. 3. Coronary artery disease. 4. Status post bypass surgery. 5. Anemia. RECOMMENDATIONS: I did speak with Dr. Ayala yesterday about proceeding with medical therapy. It was recommended to transfuse with a hemoglobin less than 9. His hemoglobin has dropped to 7.9. We will keep a close eye on bleeding. His platelet count also decreased, which is felt to be a new finding for this admission. He has had issues with thrombocytopenia in the past. Continue Dobutrex in addition to Levophed. Blood pressure appears to be too low to add Milrinone. I agree with Dr. Obando on adding low-dose Lasix, although difficult with low blood pressure. His blood pressure may come up after transfusion. We would recommend guaiacing all stools. Current prognosis appears guarded. ADDENDUM: Mr. Recinos continues to be hypotensive. I consulted with Dr. Pardeep Ayala. Digoxin IV has been given. Heart rate has been stable. It appears to be consistent with atrial flutter. The option is to cardiovert, although may be difficult given persistent hypotension likely from cardiogenic shock. Anticoagulation therapy will also be difficult due to persistent thrombocytopenia in addition to a low iron level suggesting chronic bleeding. At this point, we will continue to closely monitor and make adjustments if needed. Job ID: [id number]
[2020-08-13] MEDS: Insulin Regular 300 UNITS/3 ML VIAL SC PRN ×3 (11:57→21:35)
[2020-08-13] MEDS: Furosemide 40 MG/4 ML VIAL SLOW IVP SCH (14:55)
[2020-08-13] MEDS ORDERED: Cosyntropin 250 MCG VIAL SLOW IVP SCH (15:00)
[2020-08-13] MEDS ORDERED: Digoxin 0.5 MG/2 ML AMP SLOW IVP SCH (15:15)
[2020-08-13 15:47] LABS: #Eosinphils 0.1 thou/uL (0.0-0.7); #Lymphocytes 0.7 thou/uL (1.20-3.40); #Monocytes 0.5 thou/uL (0.11-0.59); #Neutrophils 4.1 thou/uL (1.40-6.50); %Basophils 0.4 % (0.0-1.0); %Eosinophils 1.5 % (0.0-10.0); %Lymphocytes 12.3 % (21.0-51.0); %Neutrophils 75.8 % (42.0-75.0); Hemoglobin 8.1 g/dL (14.0-18.0); Mean Corpuscular HGB CONC 31.7 g/dL (32.0-36.0); Mean Corpuscular Hemoglobin 30.6 pg (27.0-31.0); Mean Corpuscular Volume 96.5 fL (78.0-98.0); Platelet Count 49 thou/uL (130-400); RBC Distribution Width 17.1 % (11.5-14.5); Red Blood Cell (RBC) Count 2.63 mill/uL (4.70-6.10); Reticulocyte Count 4.5 % (0.5-1.5); White Blood Cell (WBC) Count 5.4 thou/uL (4.8-10.8)
[2020-08-13 16:07] LABS: Iron 13 ug/dL (65-175); Iron Binding Capacity, Total 301 mcg/dL (261-462)
[2020-08-13] MEDS ORDERED: Magnesium 2 GM/50 ML 2 GM in Premix Bag 1 BAG IVPB SCH (17:00)
[2020-08-13] MEDS ORDERED: Furosemide 40 MG/4 ML VIAL SLOW IVP SCH (20:00)
[2020-08-13] MEDS: Vasopressin 20 UNIT, Admixture Fee 1 EACH in Sodium Chloride 0.9% 50 ML IV SCH (20:11)
[2020-08-13] MEDS: Amiodarone 200 MG TAB PO SCH (20:11)
[2020-08-14] MEDS: Vasopressin 20 UNIT, Admixture Fee 1 EACH in Sodium Chloride 0.9% 50 ML IV SCH (03:07)
[2020-08-14] MEDS: DOBUTamine 500 mg/250 ml 500 MG in Premix Bag 1 BAG IVPB SCH (03:09)
[2020-08-14] MEDS: Acetaminophen 325 MG TAB PO PRN (04:42)
[2020-08-14 05:14] LABS: #Lymphocytes 0.5 thou/uL (1.20-3.40); #Monocytes 0.4 thou/uL (0.11-0.59); #Neutrophils 4.1 thou/uL (1.40-6.50); %Eosinophils 0.1 % (0.0-10.0); %Lymphocytes 9.2 % (21.0-51.0); %Monocytes 7.3 % (0.0-10.0); %Neutrophils 83.3 % (42.0-75.0); Hemoglobin 9.4 g/dL (14.0-18.0); Mean Corpuscular HGB CONC 32.9 g/dL (32.0-36.0); Mean Corpuscular Hemoglobin 30.9 pg (27.0-31.0); Mean Corpuscular Volume 94.1 fL (78.0-98.0); Mean Platelet Volume 11.1 fL (7.4-10.4); Platelet Count 40 thou/uL (130-400); RBC Distribution Width 16.1 % (11.5-14.5); Red Blood Cell (RBC) Count 3.03 mill/uL (4.70-6.10); White Blood Cell (WBC) Count 4.9 thou/uL (4.8-10.8)
[2020-08-14 05:34] LABS: Anion Gap 14 mmol/L (10-20); BUN (Urea Nitrogen) 54 mg/dL (8.4-25.7); Calc. Creatinine Clearance 59 mL/min (70-130); Calcium 7.9 mg/dL (7.8-10.44); Carbon Dioxide 17 mmol/L (23-31); Chloride 103 mmol/L (98-107); Estimated GFR-MDRD 52; Glucose 232 mg/dL (83-110); Sodium 129 mmol/L (136-145)
[2020-08-14] MEDS: Insulin Regular 300 UNITS/3 ML VIAL SC PRN ×4 (05:40→21:16)
[2020-08-14] MEDS: Albuterol Sulfate 2.5 mg/3 ml Neb NEB SCH ×5 (07:47→22:07)
--- NOTE | 2020-08-14 09:19 | CON ---
DATE OF CONSULTATION: 08/13/2020 SERVICE: [facility] REASON FOR CONSULTATION: Management of acute heart failure. HISTORY OF PRESENT ILLNESS: Mr. Adilson Recinos, a 74-year-old gentleman with known cardiac dysfunction, but near normal ejection fraction about 45%, history of coronary artery disease, presented in shock. Mr. Recinos claims at baseline about a year ago, he could walk as far as he wants to, there is really no limitation. Then about 6 months ago, his walking distance has decreased down to about one block. He said his legs felt weak and heavy, and about that time, he developed leg edema too. He needed to take furosemide for it. Then in the last month, his walking distance decreased down to about 100 feet. He has increasing leg edema. However, he was still able to lie flat, could sleep without orthopnea and really without PND. At times, he was noted to be weak and looking ill at work. 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 Then on August 09, 2020, at work, he looked very poor. Then his supervisor education called his . His came and took him to the ER. At the ER, he was found to be in a hypotensive state. He was found to be in shock. CTA did not show any pulmonary embolus. Blood cultures were also drawn. He was placed on combination of dobutamine and probably norepinephrine, and admitted. Since admission, he persistently required norepinephrine to support blood pressure. Some attempts were made to convert norepinephrine to dobutamine but it was unsuccessful. Mr. Recinos then provided Evlie , his girlfriend who is very meticulous in documentation, for detailed information. Mr. Simeon had a significant loss in January of 2020. His son suddenly at 48 years old. His son had a seizure and fell down and broke his cranium. He essentially had intracranial bleed. He is quite shaken up by that. Since then, according to Elvie that the patient had significant decline and has really not recovered since then. There is also a well documented list of blood pressures. In April, his systolic blood pressure ranged between 98 to 115 and his systolic blood pressure remained between high 90s and low 100s throughout May and most of June, then about 25 of June and beyond, his systolic blood pressures started drifting down to the 90s and sometimes dipping down into the high 70s and this drift continued. Two weeks before his admission, most of the blood pressures were in the 80. On the date of admission, systolic blood pressure was only 73 at home. However, throughout this time, the patient claimed to be fairly asymptomatic. The symptoms consist of weak legs and lower extremity swelling that persistently increased. There were a number of medication changes. The patient does not believe that he has any arrhythmia. There is some documentation that he had controlled atrial flutter. At one time, he was on amiodarone. He was switched to carvedilol perhaps. He was also on TROY inhibitor, benazepril, due to the low blood pressures it was eventually stopped. PAST MEDICAL HISTORY: 1. Coronary artery disease with coronary artery bypass of least four vessels back in 1990. 2. Some history of atrial flutter. 3. Type 2 diabetes. 4. 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 5. History of anemia. 6. History of pulmonary hypertension. SOCIAL HISTORY: He smoked for 22 years. However, he stopped in 1990. He denies alcohol use. He denies illicit drug use. He lives alone. 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 He did serve in the . He gets his outpatient medication from the [facility]. FAMILY HISTORY: His father of myocardial infarction at age 65. His mother of sudden cardiac at age 68. It was witnessed where she walked in and just fell over. He had a son who suddenly at age 48 from seizure. He fell down and broke his skull causing intracranial bleed. This could be a triggering event for potential Takotsubo cardiomyopathy. REVIEW OF SYSTEMS: GENERAL: There is no fever, chills, or productive cough. HEENT: There is no change in vision, hearing, or swallowing. CARDIAC: Please see HPI. PULMONARY: He does not really complain much. However, he did admit to progressive shortness of breath especially with exertion. GI: There is no nausea, vomiting, diarrhea, or blood in the stool. : He is able to urinate well on his own. MUSCULOSKELETAL: There are no complaints of back pain, joint pain or muscle pains currently. INTEGUMENT: There are no complaints of skin breakdown. NEUROLOGIC: There are no complaints of new focal deficits or weaknesses. ALLERGIES: NO KNOWN DRUG ALLERGIES. CURRENT MEDICATIONS: Include 1. Albuterol nebs q.4 hours. 2. Alogliptin. 3. Dobutamine currently about 5 mcg/kg per minute. 4. Furosemide 40 mg IV daily. 5. Sliding scale insulin. 6. Norepinephrine currently at 3 mcg/minute. 7. Protonix at 40 mg daily. Telemetry was reviewed. It shows a mixture of supraventricular tachycardias, at times looks like atrial fibrillation, at times it looks like there is an atrial flutter, at times there could be sinus rhythm. A EKG was done and reviewed. It showed it is atrial fibrillation with normal axis. The QRS is wide, close to 140 milliseconds. PHYSICAL EXAMINATION: VITAL SIGNS: Currently, his vitals are heart rate 102, blood pressure 89/48. GENERAL: He is alert, conversational, sitting comfortably in bed. He is actually not too distressed at this point. HEENT: EOMI. Oropharynx is benign with moist mucosa. NECK: His JVP is elevated at about 12 cm of positive hepatojugular reflux. PULMONARY: There is good air movement. However, he has definite strong crackles in bilateral lower half of the lungs. CARDIAC: Tachycardic, irregular rate, irregular rhythm, there is a 2/6 holosystolic murmur at the left sternal border. There is 2/6 systolic murmur near the apex. ABDOMEN: Mildly distended. EXTREMITIES: His thighs have pitting edema. His lower extremities to his knees have significant amount of pitting edema. You can push in about 2 cm from his feet to above the knees and a little bit beyond. LABORATORY DATA: Latest laboratory values are white cell count 5.4, hemoglobin 8.1, platelet count at 49. His chemistry from this morning is sodium 132, potassium 4.9, chloride 106, bicarb 18, BUN 52, creatinine at 1.32 and his BNP value is 7841. . Iron study showed he has a low iron at 13 and a very low iron saturation at 4%. Thus, he has significant iron deficiency anemia. Echocardiogram from August 12, 2020 was also reviewed. He has dilated right ventricle. Right ventricle is hypokinetic. It has moderate to severe depressed contractility. He has tricuspid regurgitation. Does show transpulmonary gradient of 45. So that would give his PA systolic pressure of roughly about 60 mmHg. His left ventricle is dilated at LVIDd of 6.5 cm. His left ventricular ejectionmfraction visually is estimated at 25%. He has probable grade 3 diastolic dysfunction. He has mitral regurgitation and also tricuspid regurgitation. ASSESSMENT: 74-year-old gentleman is suffering from multifactorial cause of shock. He has heart failure with reduced ejection fraction with combined systolic and diastolic dysfunctions. He likely to reside in [place] [employer] stage C and [place] Heart Association class 3B. It is biventricular failure. He has both right ventricular dilation with dysfunction and also left ventricular dilation with dysfunction. His atrial arrhythmia does not help. If we can get him back into sinus rhythm, that will be greatly helpful. He is also anemic. This is due to iron deficiency. Transfusion of 2 units would help his blood pressure. For [facility], iron supplementation will also be helpful. Perhaps he will need a GI consult to find a potential bleeding source. It was said that he has been losing weight. He could have a malignancy somewhere that is undocumented or undiscovered. It is unusual that his diastolic blood pressure is quite low, so he could be adrenal insufficient, so this also needs to be tested. Finally, he does have coronary artery disease. A graft coming to a close slowly over time can also cause this. When the patient's blood pressure is stable and has good platelet count, then this issue can be addressed with coronary angiogram, but that would be dependent on all the other factors. Please see the following for my recommendations. RECOMMENDATIONS: 1. Agree and please transfuse 2 units of blood. 2. Use digoxin to slow the rate down while preserving or promoting contractility. Please give digoxin 0.25 mg IV one dose now and followed by 0.125 mg daily. 3. Please start amiodarone at a low dose of 200 mg by mouth twice a day. 4. Please do Cortrosyn stimulation test. This will be first measure baseline cortisol value. Then give 200 mcg of Cortrosyn, afterwards collect blood for cortisol level at 30 minutes, 60 minutes afterwards. Normal increase will be 20. If less than 20, then he would have adrenal insufficiency. 5. Once the patient has sufficient blood pressure, please consider DC cardioversion with both amiodarone and digoxin on board. 6. Please give magnesium sulfate 2 g IV now. This will help with the arrhythmia. 7. Please follow magnesium values daily. We will need to correct this on a daily basis. 8. Depending on the patient, we will consider adding vasopressin 0.04 units/minute. This will allow titrating off norepinephrine. Vasopressin will be less arrhythmogenic. However, dobutamine should be kept on board because the patient has biventricular failure. The right ventricle really needs the dobutamine to augment function. 9. Agree with 40 mg IV Lasix daily. He needs fluid off. He is in pulmonary edema. We will just do this carefully. 10. Please discontinue alogliptin because this is known to cause heart failure as one of its side effects. We will use p.r.n. insulin and using insulin will be the safest inpatient ICU treatment for his diabetes. 11. When the patient has a good blood pressure, retaining his normal renal function, then we can start oral heart failure medications that can partially restore his heart.. It has been a pleasure taking care of Mr. Adilson Recinos. If any questions, please give me a call. The total visit time for the ICU is 80 minutes. This includes personally performing history and physical, visiting with family members and also getting data from his girlfriend, personally reading echocardiogram and EKG, coordinating care, titrating drips, and direct patient and family interaction. Job ID: [id number] [facility]
--- NOTE | 2020-08-14 10:15 | PRG ---
DATE OF SERVICE: 08/14/2020 SUBJECTIVE: He is in fairly good spirits this morning. He is experiencing some nausea. OBJECTIVE: VITAL SIGNS: His temperature is 97.6, pulse 101, blood pressure 111/66, O2 saturation 93%. 24-hour intake 1593, output 1215. HEENT: Unremarkable. He is still on high-flow oxygen at 38%. LUNGS: Clear anteriorly. CARDIOVASCULAR: S1 and S2, slightly tachycardic. ABDOMEN: Soft and nontender. EXTREMITIES: No clubbing, cyanosis, but he is edematous in his legs. LABORATORY DATA: Sodium 129, potassium 5, chloride 103, CO2 of 17, BUN 54, creatinine 1.3, and glucose 232. White blood cell count 4.9, hematocrit 28.5, and platelet count 40. ASSESSMENT: 1. Chronic systolic/diastolic heart failure. 2. Acute renal failure. 3. Developing hyperkalemia. 4. Thrombocytopenia. PLAN: 1. Heart failure being managed by Dr. Ayala and Dr. Arteaga. 2. His potassium level increasing is somewhat concerning. I do not see any drugs that he is on that would contribute to that. 3. In terms of his thrombocytopenia, I also do not see any drugs that could be contributing to that at this time. The patient will remain in the ICU as long as he is on vasopressin and dobutamine. Job ID: [id number]
--- NOTE | 2020-08-14 10:19 | PRG ---
DATE OF SERVICE: 08/14/2020 SERVICE: [facility]. SUBJECTIVE: Mr. Adilson Recinos had a very good afternoon and night. At first, he has atrial fibrillation as confirmed by ECG with a rapid rate response up to 120 sometimes. He was given IV digoxin 0.25 mg. That converted to a regular rhythm most likely atrial flutter. With that, dobutamine was able to be titrated up slightly to 6 mcg/kg/minute and systolic blood pressure went from 80s to 90s. Then, he was transfused 2 units of blood. Lasix 40 mg IV was given in between the unit and vasopressin at 0.04 was also started because he has low diastolic pressure and inadequate vascular response. Amiodarone 200 mg twice a day was also started. He was on amiodarone in the past. The amiodarone also aim for better rate control perhaps facilitating conversion back to sinus rhythm. These maneuvers worked. His rhythm converted from atrial fibrillation looks like to atrial flutter to perhaps sinus rhythm. His systolic blood pressure was able to be maintained at low 100. Norepinephrine was able to be titrated off and the dobutamine actually was titrated down to 4 mcg/kg/minute. He also had a urine output of greater than 1000 mL. He said he felt good. He was able to sleep. He said this is the first time he is able to sleep in a while. REVIEW OF SYSTEMS: GENERAL: There are no fever or chills. HEENT: There is no changes in vision, hearing, or swallowing. PULMONARY: He does have some shortness of breath and cough, however, is not worse and perhaps a little bit better. CARDIAC: He does not complain of chest pain, palpitation, or syncope. GI: There is no nausea, vomiting, or diarrhea. : He said he is urinating a lot. MUSCULOSKELETAL: He has chronic back pain, but he is not complaining of new pain this morning. INTEGUMENT: There is no new skin breakdown. NEUROLOGIC: There are no new focal deficits or weaknesses. CURRENT MEDICATIONS: Include: 1. Albuterol every 4 hours. 2. Amiodarone 200 mg twice a day. 3. Digoxin 0.125 mg daily. 4. Dobutamine currently at 4 mcg/kg/minute. 5. Furosemide 40 mg IV once per day. 6. Jardiance 10 mg daily. 7. Norepinephrine, which had been titrated off already. 8. Protonix at 40 mg daily. 9. Vasopressin currently at 0.04 units/minute. 10. Alogliptin has been stopped. PHYSICAL EXAMINATION: Telemetry was reviewed. It appears to be atrial flutter or sinus tachycardia. It is a regular rhythm with heart rate between the high 90s and low 100s. VITAL SIGNS: His blood pressure is 103/64. However, his oxygen saturation is in the low 90s. GENERAL: He is alert, conversational, reclining comfortably in bed. HEENT: Show EOMI. Oropharynx is benign with moist mucosa. NECK: JVP is high at least 13 cm. PULMONARY: There is good air movement; however, there are bibasilar crackles in the lower one-third of the lung. CARDIAC: Tachycardic with 2/6 holosystolic murmur at the left sternal border. There is normal S1 and S2. There is no discernible gallops or rubs. ABDOMEN: Soft, nontender. Positive bowel sounds. However, he did have some pitting edema at the thighs. EXTREMITIES: Lower extremities, he has about 1.5 cm pitting edema from feet all the way to his knees, and also some pitting edema around his thighs. LABORATORY VALUES: White cell count 4.9, hemoglobin 9.4, platelet has dropped down to 40. His chemistry shows sodium 129, potassium 5, chloride 103, bicarb reduced down 17, and BUN 54 and creatinine 1.34. Cortrosyn stimulation test increased cortisols from baseline value of 15.7 up to 43.7 in 1 hour. Thus, he had net increase of 28. This is normal. ASSESSMENT: 74-year-old gentleman has [id number] heart failure with reduced ejection fraction. He has both systolic and diastolic dysfunction. He also has a right ventricular failure leading to anasarca state. He also has significant iron deficiency anemia. He also has thrombocytopenia. He also has atrial fibrillation, atrial flutter. Conversion of atrial fibrillation down to more regular rhythms such as atrial flutter at times sinus tachycardia seemed to have increased cardiac output. Providing blood volume also was able to increase his overall blood pressure. Temporary supplementation of vasopressin allowed the titration off norepinephrine. At this point, we will need to increase diuresis and titrate off vasopressin. Conversion to sinus rhythm would be the best thing. If at all possible if the patient is stable on dobutamine alone, he can be converted over to milrinone for his right heart failure. Please see the following for today's recommendations. RECOMMENDATIONS: 1. Please attempt to titrate off vasopressin today. 2. May increase dobutamine as needed with top limit of 7.5 mcg/kg/minute, but keep the heart rate less than 120 and aim for a MAP greater than 65. 3. Increase diuresis with increasing frequency of IV Lasix to 40 mg IV b.i.d. 4. Supplement with magnesium oxide 400 mg daily. 5. Consider cardioversion. 6. Consider consulting GI for iron deficiency anemia to look for potential bleeding. 7. Consider consulting Hematology Oncology about finding that the rationale for low platelets and what will be the best way to reverse. 8. Also abdominal ultrasound to look for cirrhosis and splenomegaly. 9. Please do followup ECG to document like his current rhythm likely to be atrial flutter or sinus tachycardia. It has been a pleasure taking care of Mr. Recinos. If you have any questions, please give me a call. The ICU time is about 40 minutes. This includes personally performing history and physical, reviewing data, coordinating care with staff, modification of drips, and direct patient interaction. Job ID: [id number] [facility]
[2020-08-14] MEDS ORDERED: Vasopressin 20 UNIT, Admixture Fee 1 EACH in Sodium Chloride 0.9% 50 ML IV SCH (10:30)
[2020-08-14] MEDS: Digoxin 0.125 MG TAB PO SCH (10:53)
[2020-08-14] MEDS: Empagliflozin 10 MG TAB PO SCH (10:53)
[2020-08-14] MEDS: Amiodarone 200 MG TAB PO SCH ×2 (10:53→21:08)
[2020-08-14] MEDS ORDERED: Magnesium Oxide 400 MG TAB PO SCH (11:00)
[2020-08-14] MEDS ORDERED: Furosemide 40 MG/4 ML VIAL SLOW IVP SCH (11:00)
--- NOTE | 2020-08-14 11:04 | PRG ---
DATE OF SERVICE: 08/14/2020 SUBJECTIVE: Mr. Recinos today is better. His blood pressure appears to be more stable. He was weaned off Levophed and placed on vasopressin. He continues to be on Dobutrex. He continues to have urine output. He has no current symptoms. His hemoglobin now appears more stable at 9.4. OBJECTIVE: VITAL SIGNS: Blood pressure 111/66, pulse 104, and respirations 20. LUNGS: Crackles noted bilaterally. HEART: Regular rate and rhythm. ABDOMEN: Soft, nontender, nondistended. EXTREMITIES: 2+ pitting edema. PERTINENT LABORATORY DATA: Hemoglobin as above. Creatinine 1.34, which is stable. IMPRESSION: 1. Acute on chronic systolic heart failure. 2. Coronary artery disease. 3. Status post bypass surgery. 4. Anemia. 5. Renal insufficiency. RECOMMENDATIONS: We will continue to treat Mr. Recinos with aggressive medical therapy. Plan is to wean off vasopressin. If able to wean off vasopressin, may consider milrinone. It would be difficult to diurese Mr. Recinos given hypotension. He is in sinus rhythm and in no need of cardioversion. I did contemplate adding amiodarone to keep him in normal rhythm, but again have difficulty with hypotension. Job ID: [id number]
[2020-08-14] MEDS ORDERED: Albumin 25% 25 GM/100 ML BOT IVPB SCH (12:30)
--- NOTE | 2020-08-14 14:35 | ULT ---
PELVIC ULTRASOUND: History: Pelvic pain. GI Bleed. FINDINGS: Real-time images of the pelvis is limited due to bowel gas. The bladder is normal in position. There appears to be a small amount of fluid present within the pelvis. The pre-void volume of the bladder w as 184 cc. IMPRESSION: Minimal ascites, otherwise unremarkable pelvic ultrasound. POS: OFF
[2020-08-14] MEDS: Furosemide 40 MG/4 ML VIAL SLOW IVP SCH (15:29)
--- NOTE | 2020-08-14 15:43 | ULT ---
ABDOMINAL ULTRASOUND: History: Abdominal pain, GI bleed. FINDINGS: Real-time imaging of the upper abdomen was performed. This shows a echogenic heterogeneous liver. The re is a nodular cirrhotic contour to the liver. There is ascites present. The spleen is enlarged at 1 5.2 cm. Common duct is 4 mm. The gallbladder was never definitively visualized on this exam. Patient was not NPO for this study. Previous CT showed a gallstone within the gallbladder on 08-09-2020. The pancreas is obscured. Right and left kidneys are difficult to visualize due to bowel gas. They appear normal in size and no t obstructed. The abdominal aorta is partially obscured. Only the proximal portion could be visualize d. IVC region is also obscured. Technologist had difficulty definitely establishing flow within the main portal vein. The exam was te chnically difficult due to size and body habitus and gas. IMPRESSION: 1. Non-visualization of the gallbladder although a recent CT showed a gallstone within a contracted g allbladder. The common duct is normal in caliber. 2. Heterogeneous echogenicity to the liver with suggestion of nodular cirrhotic contour and splenomeg dania and mild ascites. POS: OFF
[2020-08-14] MEDS: Albumin 25% 25 GM/100 ML BOT IVPB SCH (21:08)
[2020-08-15] MEDS: Acetaminophen 325 MG TAB PO PRN ×2 (01:13→20:34)
[2020-08-15 04:27] LABS: #Eosinphils 0.1 thou/uL (0.0-0.7); #Lymphocytes 0.6 thou/uL (1.20-3.40); #Monocytes 0.5 thou/uL (0.11-0.59); #Neutrophils 3.7 thou/uL (1.40-6.50); %Eosinophils 1.6 % (0.0-10.0); %Lymphocytes 11.4 % (21.0-51.0); %Monocytes 9.4 % (0.0-10.0); %Neutrophils 77.6 % (42.0-75.0); Hemoglobin 8.7 g/dL (14.0-18.0); Mean Corpuscular HGB CONC 32.3 g/dL (32.0-36.0); Mean Corpuscular Hemoglobin 30.7 pg (27.0-31.0); Mean Corpuscular Volume 94.9 fL (78.0-98.0); Mean Platelet Volume 11.3 fL (7.4-10.4); Platelet Count 37 thou/uL (130-400); RBC Distribution Width 16.8 % (11.5-14.5); Red Blood Cell (RBC) Count 2.84 mill/uL (4.70-6.10); White Blood Cell (WBC) Count 4.8 thou/uL (4.8-10.8)
[2020-08-15 04:48] LABS: ALT (SGPT) 283 U/L (8-55); AST (SGOT) 179 U/L (5-34); Albumin 3.4 g/dL (3.4-4.8); Alkaline Phosphatase 113 U/L (40-110); Anion Gap 14 mmol/L (10-20); BUN (Urea Nitrogen) 55 mg/dL (8.4-25.7); Bilirubin, Total 2.8 mg/dL (0.2-1.2); Calc. Creatinine Clearance 60 mL/min (70-130); Calcium 8.4 mg/dL (7.8-10.44); Carbon Dioxide 20 mmol/L (23-31); Chloride 102 mmol/L (98-107); Estimated GFR-MDRD 51; Globulin 2.5 g/dL (2.4-3.5); Glucose 166 mg/dL (83-110); Magnesium 2.2 mg/dL (1.6-2.6); Potassium 4.9 mmol/L (3.5-5.1); Protein, Total 5.9 g/dL (5.8-8.1); Sodium 131 mmol/L (136-145)
[2020-08-15] MEDS: Albuterol Sulfate 2.5 mg/3 ml Neb NEB SCH ×5 (05:12→21:51)
[2020-08-15] MEDS: Insulin Regular 300 UNITS/3 ML VIAL SC PRN ×3 (06:13→16:54)
[2020-08-15] MEDS: Furosemide 40 MG/4 ML VIAL SLOW IVP SCH ×2 (08:04→15:09)
[2020-08-15] MEDS: Amiodarone 200 MG TAB PO SCH ×2 (08:05→20:34)
[2020-08-15] MEDS: Magnesium Oxide 400 MG TAB PO SCH (08:05)
[2020-08-15] MEDS: Empagliflozin 10 MG TAB PO SCH (08:05)
[2020-08-15] MEDS: Albumin 25% 25 GM/100 ML BOT IVPB SCH ×2 (08:05→20:34)
[2020-08-15] MEDS: Digoxin 0.125 MG TAB PO SCH (08:18)
--- NOTE | 2020-08-15 08:33 | PRG ---
DATE OF SERVICE: 08/15/2020 SUBJECTIVE: The patient is actually doing fairly well this morning. He has been weaned down to just dobutamine. He is off the vasopressors. OBJECTIVE: VITAL SIGNS: Temperature 97.6, pulse 101, blood pressure 87/47. He is currently on dobutamine at 5 mcg/kg per minute. HEENT: Unremarkable. NECK: No JVD. LUNGS: Diminished breath sounds with some crackles in the bases. CARDIAC: S1 and S2, regular. ABDOMEN: Soft. EXTREMITIES: Trace edema. LABORATORY DATA: White blood cell count 4.8, hematocrit 27, and platelet count 37. Sodium 131, potassium 4.9, chloride 102, CO2 of 20, BUN 55, creatinine 1.4, glucose 166, AST 179, and ALT 283. ASSESSMENT: 1. Congestive heart failure - biventricular. 2. Inotrope dependence. 3. Thrombocytopenia. 4. Elevated liver enzymes, likely secondary to passive liver congestion. PLAN: Transfer to [facility] is being contemplated for LVAD placement. Inotropes are being written for by Dr. Ayala available as needed. Job ID: [id number]
[2020-08-15] MEDS ORDERED: DOPamine 400 MG/D5W 250 ML 250 ML IVPB SCH (10:00)
--- NOTE | 2020-08-15 11:03 | PRG ---
DATE OF SERVICE: 08/15/2020 SERVICE: Advanced Heart Failure Cardiology Consult Service. SUBJECTIVE: Mr. Adilson Recinos actually had an excellent day. He slept well. He said it was the best sleep in many weeks. Many changes took place throughout last for 48 hour. Importantly yesterday, he was switched over to vasopressin and vasopressin was able to be titrated off. He was able to maintain his mean arterial blood pressure above 65 with dobutamine alone. However, his blood transfusion did not hold. He is losing hemoglobin again despite net volume loss. Overall, he believes he feels better, but he is very apprehensive. Today, he wants to explore all the possible options. We also held a conversation with him and his girlfriend, likely . REVIEW OF SYSTEMS: GENERAL: There is no fever or chills. HEENT: There are no changes in vision, hearing, or swallowing. PULMONARY: He has less shortness of breath, but then he has productive cough. He said he cough up with slight blood tinge in his sputum. This likely to be heart failure. CARDIAC: He does not complain of chest pain or syncope or palpitation. GI: He said that he has early satiety, a little bit of food making full quickly, but this has been ongoing for over three months. : He is able to urinate on his own. He said that he does have some trouble with the collection container. MUSCULOSKELETAL: He is not complaining any back or muscle pains. INTEGUMENT: There is no complaint of new skin breakdown. NEUROLOGIC: There are no focal deficits or weaknesses or loss of sensation. MEDICATIONS: Currently include: 1. Albumin 25 g IV b.i.d. 2. Albuterol q.4 hours. 3. Amiodarone 200 mg b.i.d. 4. Digoxin 0.125 mg daily. 5. Dobutamine currently at 5 mcg/kg per minute, titrated up to 6 mcg/kg/minute to go a better blood pressure without really affecting heart rate. 6. Furosemide 40 mg IV b.i.d. 7. He is on regular insulin. 8. Magnesium oxide 400 mg daily. 9. Jardiance at 10 mg daily. 10. Protonix 40 mg daily. PHYSICAL EXAMINATION: Telemetry was reviewed. It looks like his is most in sinus tachycardia, however, at some point that it might be able to interpret as atrial flutter, but most likely sinus tachycardia, occasional PVC. Besides that, there are no concerning arrhythmias. VITAL SIGNS: His oxygen saturations is better today, ranged between low 80s to mid 90s when I saw him. His heart rate was 103, blood pressure 96/55. GENERAL: He is alert and conversational. Less short of breath than yesterday. Able to eat breakfast. HEENT: EOMI. Oropharynx benign with moist mucosa. NECK: JVP is about 13 cm with positive hepatojugular reflux. PULMONARY: He has good air movement on top; however, he has bibasilar crackles. The level of bibasilar crackles is lower than yesterday, so he has some slight improvement in air space. CARDIAC: Tachycardic. Normal S1, S2. There is 2/6 holosystolic murmur at left sternal border and also at the apex. ABDOMEN: Mildly distended, soft, nontender. Positive bowel sounds. EXTREMITIES: Lower extremities, he has 1.5 cm pitting edema from the feet up to his knees. He also has some pitting edema at his thighs and some slight pitting edema on his lower abdomen. LABORATORY VALUES: Show white cell count 4.1, hemoglobin 8.7, platelets of 37. His chemistry showed sodium 131. There is a slight improvement. Potassium 4.9, chloride 102, and bicarbonate 20. BUN is 55, creatinine is 1.37, and glucose 166. However, he has elevated liver enzymes. Total bilirubin is 2.8, AST 179, ALT 283. This is likely due to passive congestion. His 24-hour I's and O's 1152 in and 1490 out, so he is slightly net negative yesterday. ASSESSMENT: 74-year-old gentleman has acute on chronic heart failure with reduced ejection fraction. He has combined systolic and diastolic dysfunction. He has biventricular failure, has both RV dysfunction and LVEF only about 25%. It is good that vasopressin was able to be titrated off; however, there was rising liver enzymes and marginal blood pressure. He is very precarious. At this point, he needs dobutamine at 6 mcg/kg/minute IV GTT. He will be best served if another center that can evaluate him for potential urgent LVAD implantation, or high risk coronary angio with Impella back up, if needed, right ventricular biopsy to diagnose potential myocarditis. He also has very low platelets. I suspect this is due to splenic sequestration due to heart failure. It will be good to have Hematology/Oncology on board about this. He has inadequate compensation from blood transfusion. He could be losing blood somewhere. We need to have his hemoglobin above 9 to have any chance to sustain recovery, not worsening his heart failure. So, this also needs to be corrected. Please see the following for my recommendation. RECOMMENDATIONS: 1. May titrate dobutamine up as needed to keep MAP above 65 mmHg, but keep heart rate less than 120, and keep the maximum dose less than 10 mcg/kg/minute. 2. Please transfuse one more unit of blood. 3. Do not give the second dose of furosemide until the 2nd unit of blood is transfused. 4. Please consider consulting Hematology/Oncology about thrombocytopenia. If steroids are needed that will be fine, it will help with his vascular tone too. 5. A long discussion took place between the patient, his long-term girlfriend, Elvie. Left ventricular assist device was better described. The patient had a misconception of left ventricular assist device being external with him fixing to it and unable to be mobile. After gaining understanding that left ventricular assist device is internally implanted and he can walk around with batteries, and he can be mobile with it and also LVAD survival of three to five years. He was very much pleased to hear that he wants to pursue this option if possible. Possibilities of [facility] and [facility] were brought up. The patient had a good experience of [facility] [place] in the past. He is choosing to be going to [facility]. Thus, I will make the calls to transfer the patient to [facility]. The patient does have a good family support. His family can take him in or someone can stay with him for 6 weeks. So consequently, this could be a potential option if he is judged to be LVAD acceptable. 6. We will begin the process to ask for hospital transfer from [place] to [facility]. It has been a pleasure taking care of Mr. Recinos. If you have any questions, please give me a call. This ICU visit took 70 minute. This includes personally performing history and physical, reading telemetry, reading data, coordinating care, titration of drips, and holding extensive patient and family member counseling. Job ID: [id number] MTDD
--- NOTE | 2020-08-15 11:19 | PDOC.PALCO ---
Palliative Care Consult - Consult Details Requesting Physician: Dr Rocha Reason for Consult: goals of care, advance directives assistance, assistance with communication prognosis/disease - Pertinent HPI 74 year old male with known heart failure, combined. He lives in an independent home setting and has a woman in his life named Elvie who serves as his primary caregiver. He has a daughter and [id number] (His son passes away this past year). He has a primary caregiver Elvie who assists in all care. He was found to have a systolic blood pressure in the 60's in the home setting and came to the emergency room for evaluation. He was found to have hypotension, renal insufficiency, hyperkalemia, and was admitted to CCU for higher level of care. Discussion in relation to consideration for transfer to [facility] by Dr Ayala. - Pertinent PMH Acute on Chronic combined heart failure, diabetes, HDL, CAD, BPH, ITP, Sleep apnea/non compliant with Cpap. - Social History Smoking: no tobacco exposure Alcohol Use: rarely Drug Use History: none Living Situation: independent - Medications MAR Reviewed: Yes - Allergies Allergies/Adverse Reactions: Allergies Allergy/AdvReac Type Severity Reaction Status Date / Time No Known Allergies Allergy Verified 10/05/19 22:46 - Subjective Sitting at side of bed, O2, receiving blood products, continues on pressure support. Dentures not in/states they are loose fitting and that he has lost 50 lbs in past year. - ROS Constitutional: alert, weakness ENT: alteration in dentition, other (Denies difficulity swallowing) Respiratory: shortness of breath Cardiology: other (Denies palpitations. Postiive for edema) Genitourinary: other (Negative for hematuria, dysuria) Musculoskeletal: arthritis/arthralgias Neurological: other (numbness ot lower extremities more pronounced ot right) - Objective Vital Signs: Vital Signs - Most Recent Temp Pulse Resp BP Pulse Ox 98.2 F 94 20 93/54 L 94 L 08/15/20 08:00 08/15/20 10:33 08/15/20 10:33 08/13/20 18:00 08/15/20 10:33 Palliative Performance Scale: 40 - Advance Directives Medical Power of Auto Body Estimator: Will readdress as his son was MARKELL and he is . - Physical Exam Constitutional: ill appearing HEENT: EOMI, moist MMs, sclera anicteric Respiratory: no rhonchi, no wheezing, accessory muscle use (Accessory muscle use with conversation), diminished lung sound Cardiovascular: irregular Gastrointestinal: soft, non-tender Deviation from normal: obese Genitourinary: continent Musculoskeletal: no cyanosis, edema present Neurology: moves all 4 limbs, no focal deficits Skin: cap refill <2 seconds, no lesions, no rash Psychiatric: A&O x 3, normal affect, normal mood - Problem List (1) Acute on chronic congestive heart failure Code(s): I50.9 - HEART FAILURE, UNSPECIFIED Current Visit: Yes Status: Acute (2) Palliative care encounter Code(s): Z51.5 - ENCOUNTER FOR PALLIATIVE CARE Current Visit: Yes Status: Acute (3) Idiopathic thrombocythemia Code(s): D47.3 - ESSENTIAL (HEMORRHAGIC) THROMBOCYTHEMIA Current Visit: Yes Status: Acute (4) Diabetes Code(s): E11.9 - TYPE 2 DIABETES MELLITUS WITHOUT COMPLICATIONS Current Visit: Yes Status: Acute (5) Elevated liver enzymes Code(s): R74.8 - ABNORMAL LEVELS OF OTHER SERUM ENZYMES Current Visit: Yes Status: Acute - Plan/Recommendations Plan: Discussed Mr Simeon current heart failure and potential transition to [place]. Inotorpe dependent, ITP, altered liver enzymes and declining functional status are all considerations in Goal of Care conversation. In live review he has lived in [place] since 1974, and states his favorite thing is spending time iwth Elvie. His goal is to watch his grandson graduate in October. Lengthy conversation with Elvie, she is uncertain where Mr Recinos can live if he can not return to independent home setting as well as uncertain of availability of family for assistance with commute to [facility] in [place] for follow up appointments. After the initial conversation with Mr Recinos and Elvie his caregiver It was noted that he was not accepted to [facility] for consideration for LVAD. Will r evisit goal of care with Mr Recinos. Communicated with Dr Ayala. [70] minutes spent on this encounter with >50% of the time in counseling and coordination of care. Thank you for this very appropriate consult.
--- NOTE | 2020-08-15 12:15 | PDOC.FMACP ---
Advance Care Planning - Problem (1) Acute on chronic congestive heart failure Status: Acute Code(s): I50.9 - HEART FAILURE, UNSPECIFIED (2) Palliative care encounter Status: Acute Code(s): Z51.5 - ENCOUNTER FOR PALLIATIVE CARE (3) Idiopathic thrombocythemia Status: Acute Code(s): D47.3 - ESSENTIAL (HEMORRHAGIC) THROMBOCYTHEMIA (4) Diabetes Status: Acute Code(s): E11.9 - TYPE 2 DIABETES MELLITUS WITHOUT COMPLICATIONS (5) Elevated liver enzymes Status: Acute Code(s): R74.8 - ABNORMAL LEVELS OF OTHER SERUM ENZYMES - Note Participants: patient, palliative care Summary: Revisited Advanced Care Planning. The diagnosis, prognosis and goals of care were discussed. Appropriate forms and documentation to accomplish the goals of care were discussed. All questions were answered. Mr Recinos had previously listed his son as MPOA, he has since passed. Palliative Care will assist in completing as well as completion of OOHDNAR if Mr Recinos desires. Please refer to Palliative Care notes in note section. Time Spent (mins): 15
--- NOTE | 2020-08-15 12:44 | PRG ---
DATE OF SERVICE: 08/15/2020 SUBJECTIVE: Mr. Recinos's status is stable. His blood pressure appears to be slightly better. Unfortunately, his platelet count continues to decrease. His platelet count today was 37,000. OBJECTIVE: VITAL SIGNS: Blood pressure 84/54, pulse 98, temperature afebrile. LUNGS: Crackles bilaterally. HEART: Regular rate and rhythm. ABDOMEN: Soft, nontender, nondistended. EXTREMITIES: 2+ pitting edema. PERTINENT LABORATORY DATA: Hemoglobin 8.7. Creatinine 1.37. Sodium 131, AST and ALT are 179/283. IMPRESSION: 1. Acute systolic heart failure. 2. Coronary artery disease. 3. Status post bypass surgery. 4. Chronic ITP. 5. Renal insufficiency. RECOMMENDATIONS: 1. Albumin in addition to p.o. amiodarone has been added. 2. Continue digoxin. 3. Lasix also added, but may be difficult due to hypotension. 4. There was some interest in transfer to [place] for LVAD, although concerns about chronic thrombocytopenia. He is unlikely to be a candidate for LVAD. We will discuss with Dr. Pardeep Ayala. Job ID: [id number]
[2020-08-15] MEDS ORDERED: Iron, Sodium Ferric Gluconate 250 MG in Sodium Chloride 0.9% 100 ML IVPB SCH (16:00)
[2020-08-15] MEDS ORDERED: Milrinone Lactate/D5W 20 MG in Premix Bag 1 BAG IV SCH (16:45)
[2020-08-15] MEDS: predniSONE 50 MG TAB PO SCH (16:57)
--- NOTE | 2020-08-15 20:22 | CON ---
DATE OF CONSULTATION: REASON FOR CONSULTATION: Thrombocytopenia. HISTORY OF PRESENT ILLNESS: Mr. Recinos is a 74-year-old gentleman with advanced cardiac dysfunction, who presented to the emergency room essentially in cardiogenic shock. He was admitted to the ICU and has been on blood pressure support. On admission, his platelet count was 101,000. It has drifted downward to a current 37,000. Mr. Recinos has a medical history of long-standing chronic thrombocytopenia as far back as 2009. He has seen Dr. Weeks in the past, last time was in 2017. His platelets were 58,000 at that time. He was admitted to this facility in 09/2019. He was seen by me during that visit, where his platelets were low of 26,000. He had been recently seen by Dr. Landaverde and diagnosed with cirrhosis. He had pulmonary venous congestion, cardiomegaly, splenomegaly, and possible portal hypertension, likely contributing to his worsening thrombocytopenia. During this admission, he was transfused 2 units of packed RBCs for a hemoglobin of 7.9. He had a good response at 9.4, but has drifted downward again and it is currently 8.7. He does state he has occasional nosebleeds, but denies any blood in urine or stool. Iron studies done in this hospitalization show mild iron deficiency. Retic count is slightly elevated at 4.5. He was seen at bedside, he is sitting in a chair, in no distress. He does appear to have some short memory issues as he repeated the same concern to me 3 times during our discussion. PAST MEDICAL HISTORY: 1. Chronic thrombocytopenia, present since at least 2009. 2. History of iron-deficient anemia. 3. Cirrhosis with mild splenomegaly, diagnosed in 09/2019. 4. Hyperbilirubinemia. 5. Type 2 diabetes. 6. Coronary artery disease. 7. Hyperlipidemia. 8. Diastolic dysfunction. PAST SURGICAL HISTORY: 1. Coronary artery bypass grafting. 2. Back surgery. ALLERGIES: NO KNOWN DRUG ALLERGIES. HOME MEDICATIONS: 1. Benazepril. 2. Metformin. 3. K-Dur. 4. Lasix. 5. Niacin. 6. Prilosec. 7. Oxybutynin chloride. 8. Pioglitazone. 9. Saw palmetto. 10. D3. 11. Coreg. 12. Aspirin. 13. Ranexa. 14. Multivitamin. FAMILY HISTORY: Brother and son have hemochromatosis. The patient has tested negative in the past. The father from lung cancer. SOCIAL HISTORY: , has 2 children. Lives with girlfriend. Former smoker. No alcohol or illicit drug use. REVIEW OF SYSTEMS: Twelve-point review of systems is negative except for noted in HPI. PHYSICAL EXAMINATION: VITAL SIGNS: Temperature 98.0, pulse 63, respiratory rate 22, blood pressure is 89/51, and he is 90% on 2 L. GENERAL: Chronically ill-appearing male, in no acute distress. HEENT: Normocephalic and atraumatic. Pupils equal and reactive to light. NECK: Supple. CV: Regular rate and rhythm. LUNGS: Clear anterior. ABDOMEN: Soft. SKIN: There is no rash. HEMATOLOGIC: He has scattered bruising on his arms. NEUROLOGIC: Nonfocal. PERTINENT LABORATORY DATA AND X-RAYS: Current WBCs 4.8, hemoglobin 8.7, hematocrit 27.0, and platelet count is 37,000. He has 77% neutrophils, 11% lymphocytes, and retic is 4.5. PT 17.3, INR is 1.4, and PTT 41.8. Sodium 131, potassium 4.9, chloride 102, CO2 is 20, BUN is 55, creatinine 1.37, and calcium 8.4. Magnesium 2.2. Iron 13, TIBC 301, and iron saturation is 4. Bilirubin is 2.8, AST is 179, ALT is 283, alkaline phosphatase is 113. Serum total protein is 5.9, albumin 3.4, and globulin 3.5. COVID PCR negative. Abdominal ultrasound showed heterogeneous echogenicity of the liver, suggested nodular cirrhotic contour with splenomegaly and mild ascites. ASSESSMENT: 1. Chronic thrombocytopenia, multifactorial. 2. Cirrhosis with hypersplenism. 3. Hyperbilirubinemia. 4. Congestive heart failure. 5. Chronic anemia. DISCUSSION: The patient's platelet value was 101,000 on admission. Throughout the course of this hospitalization, it has decreased likely due to his acute illness. He does have splenic pooling of platelets. INR slightly elevated at 1.4. He is complaining of a mild nosebleed, but no other bleeding. No platelet transfusion at this time. He has been transfused 2 units of packed RBCs. I will give him a dose of IV iron. Consider GI consult for opinion regarding his liver disease as it appears he has not seen a GI physician in about a year. We will check a CBC daily and follow along with his hospital course. Case discussed with Dr. Weeks. Thank you for the consult. Job ID: [id number] AGUSTÍN
[2020-08-16] MEDS: DOBUTamine 500 mg/250 ml 500 MG in Premix Bag 1 BAG IVPB SCH ×2 (00:40→15:56)
[2020-08-16 04:36] LABS: #Lymphocytes 0.3 thou/uL (1.20-3.40); #Monocytes 0.2 thou/uL (0.11-0.59); #Neutrophils 3.8 thou/uL (1.40-6.50); %Monocytes 3.5 % (0.0-10.0); %Neutrophils 89.5 % (42.0-75.0); Hemoglobin 8.7 g/dL (14.0-18.0); Mean Corpuscular HGB CONC 32.7 g/dL (32.0-36.0); Mean Corpuscular Hemoglobin 30.8 pg (27.0-31.0); Mean Corpuscular Volume 94.3 fL (78.0-98.0); Mean Platelet Volume 11.7 fL (7.4-10.4); Platelet Count 29 thou/uL (130-400); RBC Distribution Width 16.3 % (11.5-14.5); Red Blood Cell (RBC) Count 2.83 mill/uL (4.70-6.10); White Blood Cell (WBC) Count 4.2 thou/uL (4.8-10.8)
[2020-08-16 04:46] LABS: Anion Gap 15 mmol/L (10-20); BUN (Urea Nitrogen) 60 mg/dL (8.4-25.7); Calc. Creatinine Clearance 52 mL/min (70-130); Calcium 8.6 mg/dL (7.8-10.44); Carbon Dioxide 19 mmol/L (23-31); Chloride 101 mmol/L (98-107); Estimated GFR-MDRD 43; Glucose 206 mg/dL (83-110); Magnesium 2.3 mg/dL (1.6-2.6); Potassium 5.3 mmol/L (3.5-5.1); Sodium 130 mmol/L (136-145)
[2020-08-16] MEDS: Insulin Regular 300 UNITS/3 ML VIAL SC PRN ×4 (05:36→21:13)
[2020-08-16] MEDS: Albuterol Sulfate 2.5 mg/3 ml Neb NEB SCH ×5 (06:43→22:10)
[2020-08-16 08:26] LABS: ALT (SGPT) 199 U/L (8-55); AST (SGOT) 79 U/L (5-34); Albumin 3.6 g/dL (3.4-4.8); Alkaline Phosphatase 105 U/L (40-110); Globulin 2.1 g/dL (2.4-3.5); Protein, Total 5.7 g/dL (5.8-8.1)
[2020-08-16] MEDS: Magnesium Oxide 400 MG TAB PO SCH (09:09)
[2020-08-16] MEDS: Amiodarone 200 MG TAB PO SCH ×2 (09:09→20:52)
[2020-08-16] MEDS: Digoxin 0.125 MG TAB PO SCH (09:09)
[2020-08-16] MEDS: predniSONE 50 MG TAB PO SCH ×2 (09:09→17:47)
--- NOTE | 2020-08-16 09:27 | PRG ---
DATE OF SERVICE: 08/16/2020 SUBJECTIVE: Mr. Recinos is telling me that [facility] has denied him because his platelet count is too low. He is currently on dobutamine and milrinone and looks stable. OBJECTIVE: VITAL SIGNS: Temperature 97.5, pulse 102, and blood pressure 86/46. HEENT: Unremarkable. NECK: No adenopathy or JVD. LUNGS: He has few crackles in the bases. CARDIAC: S1, S2. Distant. ABDOMEN: Soft. EXTREMITIES: No edema. LABORATORY DATA: Platelet count is 29, white blood cell count 4.2, and hematocrit 26.7. Sodium 130, potassium 5.3, chloride 101, CO2 of 19, BUN 60, creatinine 1.5, and glucose 206. ASSESSMENT: 1. Systolic and diastolic heart failure. 2. Thrombocytopenia. 3. Developing renal insufficiency. 4. Elevated liver enzymes. PLAN: 1. Continue supportive care. 2. Hematology has been consulted to work up the thrombocytopenia. No additional recommendations at this time. Job ID: [id number]
--- NOTE | 2020-08-16 10:17 | PRG ---
DATE OF SERVICE: 08/16/2020 SERVICE: Advanced Heart Failure Cardiology Consulting Service. SUBJECTIVE: Mr. Recinos had a variable day. An attempt was made to change from dobutamine to dopamine. It was unsuccessful. Dopamine only increased his heart rate and dropped his systolic blood pressure. Consequently, dobutamine had to be titrated up, dopamine had to be stopped. Milrinone of 0.125 mcg was added to attempt to help with the right heart more and help with better decongestion, so the combination of dobutamine and milrinone apparently worked. Over time, his systolic blood pressure increased to 90s, and overnight, his systolic blood pressure went above 100 and between 100 and 110 at times. So, hemodynamically, he did improve with dobutamine plus milrinone combination. There have been several conversations with [facility]. Please see the assessment portion for that. Mr. Recinos says he actually feels good. He does not feel bad at all. He does get shortness of breath with exertion. He is not able to eat solid food, but then he says he is able to eat soft foods. He still is willing to pursue [facility] if possible. Hematology/Oncology was consulted. 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 However, they will attempt a trial of ITP treatment. REVIEW OF SYSTEMS: GENERAL: There is no fever or chills. HEENT: There is no change in vision, hearing, or swallowing. PULMONARY: Please see HPI. CARDIAC: There is no complaint of chest pain, palpitation, or syncope. GI: Please see HPI. : He is able to urinate on his own. MUSCULOSKELETAL: He is not complaining of back or neck pain. INTEGUMENT: There is no new skin breakdown. NEUROLOGIC: There are no acute deficits or weaknesses. MEDICATIONS: Medications that have cardiac effect include currently, 1. Albuterol q.4 hours. 2. Amiodarone 200 mg b.i.d. 3. Digoxin 0.125 daily. 4. Dobutamine currently at 5 mcg/kg per minute. 5. Moderate sliding scale insulin. 6. Magnesium oxide 400 mg daily. 7. Milrinone currently at 0.125 mcg/kg per minute. 8. Protonix 40 mg daily. 9. Prednisone now at 50 mg b.i.d., started at 5 p.m. last night. DIAGNOSTIC STUDIES: Telemetry was reviewed. It is a regular rhythm. It is either sinus tachycardia or high sinus rate. There is some portion that looks like atrial flutter, however, overall it is regular rhythm. There is occasional PVC. There is no concerning arrhythmia at this point. PHYSICAL EXAMINATION: VITAL SIGNS: His current vitals are heart rate 99, blood pressure 107/65. GENERAL: He is alert, conversational, appearing comfortable, reclining in bed. HEENT: Shows EOMI. Oropharynx benign. NECK VEINS: JVP is elevated at least 13 cm or higher, is near his earlobe. PULMONARY: There is good air movement, but there are bibasilar crackles. CARDIAC: Tachycardic, regular rhythm, normal S1 and S2, there is 2/6 holosystolic murmur at the left sternal border and 2/6 holosystolic murmur near the apex. ABDOMEN: Soft, mildly distended. Positive bowel sounds. EXTREMITIES: He has greater than 1.5 cm pitting edema from feet up towards knees. There is some pitting edema in his thighs. LABORATORY VALUES: This morning, sodium 130, potassium 5.3, chloride 101, bicarbonate 19, BUN is 60 and creatinine 1.59, magnesium 2.3. His net positive yesterday 2121 in and 660 out. ASSESSMENT: 74-year-old gentleman suffers from multitude of problems. He is in acute on chronic heart failure with reduced ejection fraction with both systolic and diastolic dysfunctions. It is likely to be a nonischemic cardiomyopathy, however, without coronary angiogram, this cannot be for certain. He also has right ventricular failure - cor pulmonale. This makes the overall treatment very difficult. So far, he is responding to dobutamine and milrinone. We will attempt to maximize this. He is also very much volume overloaded. His volume overload situation makes his liver worse and also causing more splenic sequestration. We will attempt to be more aggressive about diuresis today once his drips are at target. Appreciate Hematology/Oncology's input on prednisone. We will follow their recommendations and hoping for good platelet response. 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 He has cardiac renal syndrome. Unfortunately, we have no choice but to diurese. We need to decongest his liver, especially his spleen for him to have any chance. We are having daily conversation with Dr. Norberto Lombardo, who represents [facility]. [facility] is still interested in the patient. They want to see him improved on ITP treatment. They also want a GI consult to assess the cause of anemia. [facility] is currently not accepting him. However, they are still interested in him. They want us to provide daily reports and take him when they feel like that he has a chance. Please see the following for my recommendations. RECOMMENDATIONS: 1. Increase milrinone to 0.25 mcg/kg per minute. 2. After 2 hours on this dosage, check his blood pressure. If the blood pressure is steady above 90 or maintain his MAP above 65, we will do more aggressive diuresis. 3. Aggressive diuresis will include metolazone 5 mg followed by Lasix 80 mg IV at 30 minutes after metolazone and we will monitor his output. If need to, we may need to replete. 4. Agree with Dr. Rocha' request to increase the frequency of albumin supplementation to 25 g albumin q.6 hours. 5. We will ask opinion from Electrophysiology about changing from amiodarone to Tikosyn. This is intended to avoid any complications of amiodarone-induced liver dysfunction. The patient has congested liver. He already has liver dysfunction. The idea behind Tikosyn is still the same rhythm control, but avoiding the liver complication. 6. Please do another ECG now so we can get a good QT interval. With good interval calculation, then we can decide on Tikosyn or not. 7. Please consider GI consult per the request from [facility]. It has been a pleasure taking care of Mr. Recinos. If you have any questions, please give me a call. This visit took about 70 minutes. This includes personally performing history and physical, titration of drips, interacting with multiple services including [facility], and direct patient interaction including holding small family conference with the patient and his girlfriend/. Job ID: [id number] [facility] SYSTEMJosef
[2020-08-16] MEDS: Albumin 25% 25 GM/100 ML BOT IVPB SCH ×2 (12:25→17:47)
[2020-08-16] MEDS: Acetaminophen 325 MG TAB PO PRN (13:09)
[2020-08-16 13:27] VITALS: BP 85/48
--- NOTE | 2020-08-16 14:24 | EKG ---
Test Reason : Blood Pressure : / mmHG Vent. Rate : 102 BPM Atrial Rate : 102 BPM P-R Int : 000 ms QRS Dur : 134 ms QT Int : 382 ms P-R-T Axes : 000 108 -89 degrees QTc Int : 497 ms Atrial fibrillation with rapid ventricular response Right bundle branch block T wave abnormality, consider inferior ischemia Abnormal ECG Confirmed by BERENICE CULVER ([id number]) on 08/16/2020 2:24:22 PM Referred By: CHAD Confirmed By:BERENICE CULVER
--- NOTE | 2020-08-16 14:28 | EKG ---
Test Reason : Blood Pressure : / mmHG Vent. Rate : 100 BPM Atrial Rate : 100 BPM P-R Int : 208 ms QRS Dur : 134 ms QT Int : 358 ms P-R-T Axes : 005 116 -49 degrees QTc Int : 461 ms Atrial tachycardia Marked ST abnormality, possible septal subendocardial injury Right bundle branch block Left posterior fascicular block Bifascicular block Abnormal ECG Confirmed by BERENICE CULVER ([id number]) on 08/16/2020 2:27:59 PM Referred By: SANDIE Confirmed By:BERENICE CULVER
[2020-08-16] MEDS: Norepinephrine 8 MG/0.9% NS 250 ML IVPB SCH (14:29)
[2020-08-16 15:20] LABS: Hemoglobin 8.4 g/dL (14.0-18.0); Mean Corpuscular HGB CONC 32.9 g/dL (32.0-36.0); Mean Corpuscular Hemoglobin 31.1 pg (27.0-31.0); Mean Corpuscular Volume 94.5 fL (78.0-98.0); Mean Platelet Volume 10.5 fL (7.4-10.4); Platelet Count 58 thou/uL (130-400); RBC Distribution Width 16.4 % (11.5-14.5); Red Blood Cell (RBC) Count 2.72 mill/uL (4.70-6.10)
--- NOTE | 2020-08-16 15:20 | PDOC.MOPN ---
Interval History: sitting in chair, denies bleeding. - Vital Signs Vital Signs: Vital Signs (12 hours) Temp Pulse Pulse Resp BP Pulse Ox 08/16/20 12:45 98.1 F 100 11 L 85/48 L 08/16/20 12:00 97.9 F 08/16/20 11:30 97.9 F 104 H 18 93/47 L 08/16/20 11:16 102 H 28 H 95 08/16/20 11:15 97.9 F 103 H 10 L 79/38 L 08/16/20 09:09 100 08/16/20 08:15 98.3 F 101 H 18 96/74 08/16/20 08:00 98.4 F 08/16/20 07:00 98.3 F 99 18 108/67 08/16/20 06:43 100 20 95 08/16/20 06:40 97.5 F L 08/16/20 04:00 98.7 F Weight Weight 210 lb 15.718 oz Most Recent Monitor Data Heart Rate from ECG 100 NIBP 85/50 NIBP BP-Mean 61 Respiration from ECG 23 SpO2 95 - Physical Exam General: Alert HEENT: Atraumatic, PERRLA, EOMI, Mucous membr. moist/pink Lungs: Clear to auscultation Cardiovascular: Regular rate Abdomen: Normal bowel sounds Neurological: Normal speech - Labs Result Diagrams: 08/16/20 04:03 08/16/20 04:03 Lab results: Laboratory Results - last 24 hr 08/16/20 11:33: POC Glucose 184 H 08/16/20 05:40: POC Glucose 197 H 08/16/20 04:03: WBC 4.2 L, RBC 2.83 L, Hgb 8.7 L, Hct 26.7 L, MCV 94.3, MCH 30.8, MCHC 32.7, RDW 16.3 H, Plt Count 29 L*, MPV 11.7 H, Neutrophils % 89.5 H, Neutrophils % (Manual) Not Reportable, Lymphocytes % 7.0 L, Monocytes % 3.5, Eosinophils % 0.0, Basophils % 0.0, Neutrophils # 3.8, Lymphocytes # 0.3 L, Monocytes # 0.2, Eosinophils # 0.0, Basophils # 0.0 08/16/20 04:03: Sodium 130 L, Potassium 5.3 H, Chloride 101, Carbon Dioxide 19 L, Anion Gap 15, BUN 60 H, Creatinine 1.59 H, Estimated GFR (MDRD) 43, Glucose 206 H, Calcium 8.6, Magnesium 2.3, Total Bilirubin 3.0 H, AST 79 H, ALT 199 H, Alkaline Phosphatase 105, Serum Total Protein 5.7 L, Albumin 3.6, Globulin 2.1 L, Albumin/Globulin Ratio 1.7 08/15/20 20:52: POC Glucose 169 H 08/15/20 17:02: POC Glucose 220 H 08/13/20 12:56: Blood Type O NEGATIVE, Antibody Screen NEGATIVE, Crossmatch See Detail Status: lab reviewed by me A/P - Problem (1) Thrombocytopenia Current Visit: Yes Code(s): D69.6 - THROMBOCYTOPENIA, UNSPECIFIED Status: Acute (2) Hypersplenism Current Visit: Yes Code(s): D73.1 - HYPERSPLENISM Status: Acute (3) Anemia Current Visit: Yes Code(s): D64.9 - ANEMIA, UNSPECIFIED Status: Acute (4) Acute on chronic congestive heart failure Current Visit: Yes Code(s): I50.9 - HEART FAILURE, UNSPECIFIED Status: Acute (5) Elevated liver enzymes Current Visit: Yes Code(s): R74.8 - ABNORMAL LEVELS OF OTHER SERUM ENZYMES Status: Acute - Plan Plan: 1. Patient was started on trial of steroids for ITP. Discussed with Dr. Weeks and feel steroids unlikely to improve counts but ok to try 2. Unfortunately, patient was transfused 2 units platelets this am making it difficult to determine effectiveness of steroids. 3. Recommend avoid platelet transfusion unless platelets < 10, or bleeding. 4. 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 5. Monitor CBC.
[2020-08-16 15:36] LABS: Anisocytosis SLIGHT = 6-15 cells (100X) (0-5/hpf); Band 1 % (5-11); Hypochromia SLIGHT = 6-15 cells (100X) (0-5/hpf); Large Platelets SLIGHT; Lymphocytes 2 % (21-51); MDiff Complete? YES; Monocytes 2 % (0-10); Neutrophil 95 % (42-75); Nucleated RBC 3 % (0); Ovalocytes SLIGHT = 2-5 cells (100X) (0-1/hpf); Platelet Morphology Comment Appears Decreased; Polychromasia MODERATE = 3-4 cells (100X) (0-2/hpf); Target Cells SLIGHT = 2-5 cells (100X) (0-1/hpf)
[2020-08-16] MEDS ORDERED: Acetaminophen/Codeine 30-300mg Tablet PO PRN ×2 (16:32)
--- NOTE | 2020-08-16 17:13 | CON ---
DATE OF CONSULTATION: 08/16/2020 REQUESTING PHYSICIAN: Adelso Rocha MD REASON FOR CONSULTATION: Anemia. HISTORY OF PRESENT ILLNESS: Adilson Recinos is a very pleasant, but quite ill 74-year-old gentleman, who was admitted to the hospital a week ago with cardiogenic shock from acute on chronic biventricular systolic and diastolic heart failure. Notably, he has seen my partner, Dr. Tremaine Landaverde in the past in the [facility]. He was last seen about a year ago. He had been diagnosed with cirrhosis, which was thought to be cryptogenic from fatty liver. Last year, this was otherwise well compensated, but he did have an EGD and a colonoscopy in December 2018. The colonoscopy was completely normal. The EGD at that time showed moderate portal hypertensive gastropathy as well as grade 2 esophageal varices. He was started on nonselective beta-mariluz at that time. He has no history of encephalopathy or jaundice or any liver lesions on surveillance imaging. With regard to this current admission over the past week, he has been treated aggressively with dobutamine, Milrinone, and amiodarone drips. There have been issues keeping his blood pressure up as well as with his fluid status. He has started to develop cardiorenal syndrome. The possibility of transferred to [facility] for consideration of LVAD has been entertained, but [facility] has not accepted the patient as yet. Along with all this, there had been concerns about the patient's blood counts. Hemoglobin was 9.4 on admission and has been trending down a bit at each day. He has received 3 units of RBCs and hemoglobin this morning is 8.7. He is also having worsening thrombocytopenia. This is chronic, but more of a problem this admission. Platelets that came down to 29,000 today and he is receiving 1 unit of platelet transfusion. He was evaluated by the Hematology/Oncology Service, also started on prednisone for possible ITP, though hypersplenism is suspected to be the primary etiology of this. With regard to the anemia, the patient denies any overt bleeding from anywhere. He says he rarely has small bowel movements, which are brown in color. There is no melena or hematochezia. He denies any hematemesis. He has had issues with nosebleeds in the past, but none recently. He does occasionally cough up some bloody-tinged sputum, which is secondary to the heart failure. His appetite is poor, but he is not having any abdominal pain or nausea. REVIEW OF SYSTEMS: Full review of systems including constitutional, head, eyes, ears, nose, throat, GI, , cardiovascular, respiratory, musculoskeletal, neurologic systems is negative except as noted in the HPI. PAST MEDICAL HISTORY: Coronary artery disease, status post CABG; chronic thrombocytopenia; atrial flutter; pulmonary hypertension; cor pulmonale; cirrhosis, cryptogenic; diabetes; acid reflux; chronic anemia; congestive heart failure with advanced diastolic dysfunction; esophageal varices, grade 2, seen on EGD in 2019; portal hypertensive gastropathy, moderate, seen on EGD in 2019. FAMILY HISTORY: Noncontributory. SOCIAL HISTORY: No current tobacco or alcohol use. He evidently drank heavily 30 or 40 years ago, but nothing recently. ALLERGIES: NO KNOWN DRUG ALLERGIES. HOSPITAL MEDICATIONS: 1. Tylenol p.r.n. 2. Albuterol nebulizer q.4 hours. 3. Amiodarone 200 mg twice daily. 4. Digoxin 0.125 mg daily. 5. Dobutamine drip. 6. Insulin per sliding scale. 7. Magnesium oxide 400 mg daily. 8. Zofran p.r.n. 9. Protonix 40 mg p.o. daily. 10. Prednisone 50 mg p.o. twice daily. 11. Milrinone drip. PHYSICAL EXAMINATION: VITAL SIGNS: Pulse 102, blood pressure 87/48, oxygen saturation 93% on 3 L nasal cannula, and temperature is 98.3. GENERAL: Chronically ill, but nontoxic-appearing 74-year-old man, sitting up in chair comfortably, in no acute distress. SKIN: No jaundice. No rashes were palpable. EYES: No scleral icterus. Extraocular movements intact. ENT: Mucous membranes moist. No oral lesions. LYMPH: No submandibular or supraclavicular lymphadenopathy. THYROID: Nontender to palpation. HEART: Regular. Tachycardia. LUNGS: Bibasilar crackles. ABDOMEN: Nondistended. Bowel sounds are present. Soft, nontender to palpation. EXTREMITIES: 2+ bilateral lower extremity edema. NEURO: Cranial nerves II through XII intact bilaterally. No focal deficits. LABORATORY STUDIES: WBC is 4.2, hemoglobin 8.7, MCV 94.3, and platelets 29,000. Sodium 130, potassium 5.3, BUN 60, creatinine climbing up to 1.59, glucose 184, calcium 8.6, magnesium 2.3, total bilirubin 3.0, alkaline phosphatase 105, AST 79, ALT 199, and albumin 3.6. Lipase only 19. TSH 0.68. BNP is 7841.3. IMAGING STUDIES: Abdominal ultrasound from this admission shows heterogeneous nodular liver with splenomegaly and ascites. Gallbladder is not visualized, but common bile duct is normal. Echocardiogram from this admission demonstrates ejection fraction 25% to 30% with grade 3 diastolic dysfunction. ASSESSMENT AND PLAN: 1. Anemia, multifactorial. The patient does have chronic anemia, but has required 3 units RBC transfusion this admission in the context of worsening thrombocytopenia and no overt gastrointestinal bleeding. He does have a known history of grade 2 esophageal varices, but this is not consistent with variceal bleed. He has known portal hypertensive gastropathy and in the context of worsening thrombocytopenia, this is undoubtedly contributing to some chronic blood loss. He had a completely normal colonoscopy within the past 2 years. I do not see any utility to repeating colonoscopy and I really see very low utility for putting him through the risk of upper endoscopy either, which would be significant with this degree of thrombocytopenia and tenuous cardiac status. I think the risks would outweigh the potential benefits in terms of diagnostics and especially in terms of any therapeutics. We will not plan for any endoscopic investigation. That being said, if Cardiology really desires this to be done and will clear him for the procedure, we could consider it. We will follow up on this tomorrow. 2. Cirrhosis. This has been classified as cryptogenic by Dr. Landaverde last year. Consider may be secondary to chronic congestion from his right heart failure as well. This is all probably contributing to the difficulty of his fluid status issues as well as his hypersplenism. 3. Acute on chronic systolic and diastolic biventricular heart failure. Cardiology is following. His status has been tenuous. My understanding is that attempts are being made to get him transferred for consideration of LVAD. Thank you for the consultation. GI will follow along tomorrow. Please call anytime with questions or concerns. Job ID: [id number]
--- NOTE | 2020-08-16 17:50 | CON ---
DATE OF CONSULTATION: 08/16/2020 This is Adrianna Chaudhry NP dictating a report for Elliott Cid MD. Consultation performed with collaboration of Dr. Elliott Cid. REASON FOR CONSULTATION: Antiarrhythmic management and atrial fibrillation. HISTORY OF PRESENT ILLNESS: Mr. Recinos is a 74-year-old gentleman, who presented in acute on chronic systolic heart failure with hypotensive shock on 08/09/2020. Echocardiogram found a recent decline in ejection fraction, previously 55% to 60% in September 2019, now assessed at 25% to 30% on 08/12/2020. Cardiology was consulted. He does have a history of coronary artery bypass grafting. His current condition is tenuous with multiple comorbidities including chronic ITP and cardiorenal issues. There was concern that he was in an atrial arrhythmia on 08/13/2020. He was started on low-dose oral amiodarone 200 mg b.i.d. He was also given magnesium replacement. He spontaneously converted to sinus rhythm and has maintained sinus rhythm since that time. There was seen to be some elevation in his liver enzymes and there was concern with his amiodarone. EP consultation has been requested for consideration of alternate antiarrhythmic therapy. Currently, Mr. Recinos is feeling fairly well, but still weak with shortness of breath and weakness in his legs. He is currently on a milrinone and dobutamine drips. There has been difficulty with diuresing him due to hypotension and at times tachycardia that would worsen his hypotension. There is still some potential for transferring to [place] with discussions for an LVAD. His heart failure is currently being managed by Dr. Ayala. No coronary angiogram has been performed, but there is potential for this in the future. REVIEW OF SYSTEMS: Positive for shortness of breath, fatigue, weakness, progressive edema, lower extremity weakness. He is negative for heart racing, palpitations, chest pain, pressure, stroke-like symptoms, passing-out. PAST MEDICAL HISTORY: 1. Atrial arrhythmias, previously on amiodarone transiently. a. Atypical atrial flutter. 2. Coronary artery disease. a. Coronary artery bypass grafting in the past. 3. Acute on chronic systolic heart failure. a. LVEF 55% to 60% by echocardiogram in 09/2019. b. LVEF 25% to 30%, 2D echo on 08/12/2020. 4. Bifascicular block with right bundle and left axis deviation, chronic. 5. Chronic thrombocytopenia. 6. Type 2 diabetes. 7. History of CLL. 8. Chronic kidney disease. HOME MEDICATIONS: 1. Glucophage 1000 mg q.a.m. 2. Coreg 6.25 mg p.o. b.i.d. 3. Vitamin D 5000 units daily. 4. Potassium chloride (K-Dur) 20 mEq daily. 5. Saw palmetto b.i.d. 6. Niacin b.i.d. 7. Theragran one tab daily. 8. Aspirin 81 mg daily. 9. Ranexa 500 mg p.o. b.i.d. 10. Pioglitazone 15 mg daily. 11. Oxybutynin 5 mg daily. 12. Omeprazole 20 mg at bedtime. 13. Benazepril 10 mg p.o. at bedtime. 14. Lasix 40 mg p.o. daily. Active cardiac medications: 1. Albumin 25 g q.6 hours. 2. Amiodarone 200 mg p.o. b.i.d. 3. Digoxin 125 mcg daily. 4. Dobutamine drip. 5. Magnesium oxide 400 mg daily. 6. Milrinone drip. ALLERGIES: NO KNOWN DRUG ALLERGIES. CODE STATUS: Do not resuscitate. FAMILY HISTORY: The patient does not recall if there is any sudden cardiac or early onset CAD. SOCIAL HISTORY: He has a significant other named Erica. 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 The patient is a former smoker. Denies alcohol or illicit drug use. OBJECTIVE: VITAL SIGNS: 5 feet 7 inches, 210 pounds. Pulse 102, oxygen 95% on 3 L via nasal cannula, blood pressure 87/48, respirations 28. GENERAL: The patient is alert. He is oriented. He is a poor historian referring to his significant other. He is sitting upright in a chair at the edge of the bed. He is in no apparent distress at the time of the exam. HEENT: He is normocephalic and atraumatic. Sclerae anicteric. EOMs are intact. Oral mucosa is moist and pink. Poor dentition. NECK: Supple. Positive jugular venous distention. No lymphadenopathy. His trachea is midline. LUNGS: Have coarse bibasilar crackles to the mid lung blum bilaterally. No wheezes or rhonchi appreciated. HEART: Rate is currently regular. Slightly rapid. Hepatojugular reflux is positive. ABDOMEN: Soft and nontender. There are no palpable masses. EXTREMITIES: Warm and dry to touch without clubbing or cyanosis, but extensive peripheral edema pitting is noted bilaterally extending above his SCDs. NEUROLOGIC: Grossly intact. No focal deficits are noted. Gait was not assessed. TELEMETRY AND EKGS: Baseline EKG shows sinus rhythm with a first-degree AV block, 280 milliseconds. There is a right bundle-branch block with left anterior fascicular block. QRS measures 138 milliseconds and ventricular rate 100 beats per minute. QT/QTC 354/456 milliseconds. A 12-lead EKG and telemetry on August 13 in the afternoon show potential for atrial flutter with variable AV conduction. Ventricular rates were fairly controlled at approximately 100 beats per minute. EKG the next morning shows spontaneous conversion to sinus rhythm. Echocardiogram on 08/12/2020, LVEF 25% to 30%. LABORATORY DATA: On 08/16/2020; potassium 5.3, creatinine 1.59, creatinine clearance calculated at 54, magnesium 2.3. AST is 79, ALT 199, alkaline phosphatase 105. TSH 0.685. BNP on 08/13/2020, 7841. IMPRESSION: This is a 74-year-old gentleman with decompensated combined systolic and diastolic heart failure. He has a chronic right bundle branch and left anterior fascicular block. He was seen to have paroxysmal episodes of atrial flutter and was started on amiodarone, but was found to have liver congestion and there is concern for ongoing amiodarone therapy with his liver enzymes being elevated. There is currently evaluation ongoing in regard to his thrombocytopenia and his anemia to assess for any potential GI bleeding source. There are ongoing attempts to diurese him without further dropping his blood pressure and he does require ongoing vasopressor support with milrinone and dobutamine. At this point, he is maintaining sinus rhythm and has only been on low-dose amiodarone with oral dosing for a few days. In the setting of left ventricular systolic heart failure, Tikosyn could be a consideration for alternate antiarrhythmic therapy, however, with his ongoing milrinone and dobutamine drip, this does place him at increased risk for proarrhythmic effect and ventricular arrhythmia arrest. RECOMMENDATION: Would be to stop the amiodarone and to monitor his heart rhythm. Given the relatively short duration of his amiodarone therapy, Tikosyn could be consideration after short washout if recurrences are seen. Based on his current creatinine clearance of 54, a dose of 250 mcg b.i.d. would be appropriate, but would require in-hospital monitoring for at least three days. The patient has been discussed at length with Dr. Cid, who agreed to this plan and recommendations. He is available for any further input if desired. Thank you for allowing us to participate in the care of this patient. We will continue to follow and manage his arrhythmia with amiodarone stopped. Job ID: [id number]
[2020-08-16] MEDS ORDERED: Vasopressin 20 UNIT, Admixture Fee 1 EACH in Sodium Chloride 0.9% 50 ML IV PRN (22:41)
--- NOTE | 2020-08-16 23:27 | CT ---
Exam: Chest CT without contrast Abdomen CT without contrast Pelvic CT without contrast HISTORY: Right flank hematoma. Abdominal pain and shortness of breath. Evaluate for bleed FINDINGS: CHEST: Limited evaluation mediastinum due to the lack of IV contrast. No mass, lymphadenopathy or hem atoma Aorta: Atherosclerosis. No evidence of periaortic fat stranding. There is aneurysmal dilatation of th e infrarenal abdominal aorta, measuring 4.7 x 4.5 cm. No obvious periaortic fat stranding. Technique limits evaluation. Trachea and central bronchi are patent Small right and moderate left pleural effusion. Adjacent atelectatic changes are noted. Patchy ground glass opacities and septal thickening likely representing edema. HEART: Cardiomegaly. Coronary calcifications. Abdomen CT: Nonspecific calcification the gallbladder fossa, incompletely evaluated. Cirrhotic change s of the liver with nodularity. There is splenomegaly. There are splenic varices. Atrophy of the pancreas. Grossly unremarkable adrenal glands. Limited evaluation of the solid organs due to lack of IV contrast Mild edema throughout the mesentery. There is evidence of free fluid in the pelvis with attenuation c oefficient of 0 Hounsfield units. Kidneys: Bilaterally no obstructive uropathy. Symmetric attenuation of the psoas muscles. No retroperitoneal hematoma. Intrahepatic IVC is prominent. Correlate for right heart failure No mesenteric mass or lymphadenopathy. No free air. Limited evaluation of the alimentary canal by the lack of oral contrast. No small bowel obstruction. Normal ileocecal junction. Suggestion of a normal caliber appendix. Scattered fecal material in a decompressed colon. Soft tissue structures: Diffuse edema/anasarca. Pelvic CT: Free fluid in the pelvis. No mass, lymphadenopathy or free air. Nonspecific stranding of the presacral fat. Unremarkable urinary bladder. No lytic or blastic lesions in the osseous structures. IMPRESSION: 1. No evidence of a hematoma in the chest, abdomen or pelvis. 2. Findings suggesting cirrhosis with complex ascites. Splenomegaly. Varices. 3. Pleural effusion with atelectasis 4. Soft tissue edema has developed since the CT angiogram of the chest from 08/09/2020. 5. Probable gallstone in a severely contracted gallbladder. 6. Aneurysmal dilatation of the infrarenal abdominal aorta.
[2020-08-17] MEDS: Albumin 25% 25 GM/100 ML BOT IVPB SCH ×3 (00:03→11:02)
[2020-08-17] MEDS: DOBUTamine 500 mg/250 ml 500 MG in Premix Bag 1 BAG IVPB SCH ×2 (01:34→10:19)
[2020-08-17 04:27] LABS: Hemoglobin 9.6 g/dL (14.0-18.0); Mean Corpuscular HGB CONC 33.3 g/dL (32.0-36.0); Mean Corpuscular Hemoglobin 31.2 pg (27.0-31.0); Mean Corpuscular Volume 93.6 fL (78.0-98.0); Mean Platelet Volume 14.1 fL (7.4-10.4); Platelet Count 12 thou/uL (130-400); RBC Distribution Width 16.1 % (11.5-14.5); Red Blood Cell (RBC) Count 3.08 mill/uL (4.70-6.10); White Blood Cell (WBC) Count 5.7 thou/uL (4.8-10.8)
[2020-08-17 04:29] LABS: #Lymphocytes 0.4 thou/uL (1.20-3.40); #Monocytes 0.4 thou/uL (0.11-0.59); #Neutrophils 4.9 thou/uL (1.40-6.50); %Lymphocytes 6.3 % (21.0-51.0); %Monocytes 6.4 % (0.0-10.0); %Neutrophils 87.4 % (42.0-75.0)
[2020-08-17 04:42] LABS: Anion Gap 16 mmol/L (10-20); BUN (Urea Nitrogen) 71 mg/dL (8.4-25.7); Calc. Creatinine Clearance 44 mL/min (70-130); Calcium 9.2 mg/dL (7.8-10.44); Carbon Dioxide 19 mmol/L (23-31); Chloride 99 mmol/L (98-107); Estimated GFR-MDRD 33; Glucose 226 mg/dL (83-110); Magnesium 2.4 mg/dL (1.6-2.6); Potassium 5.5 mmol/L (3.5-5.1); Sodium 128 mmol/L (136-145)
[2020-08-17] MEDS: Insulin Regular 300 UNITS/3 ML VIAL SC PRN ×2 (05:49→10:59)
--- NOTE | 2020-08-17 07:02 | EKG ---
Test Reason : Blood Pressure : / mmHG Vent. Rate : 100 BPM Atrial Rate : 100 BPM P-R Int : 248 ms QRS Dur : 138 ms QT Int : 354 ms P-R-T Axes : 049 118 -58 degrees QTc Int : 456 ms Sinus rhythm with 1st degree A-V block Right bundle branch block Left posterior fascicular block Bifascicular block T wave abnormality, consider inferior ischemia Abnormal ECG When compared with ECG of 14-AUG-2020 09:34, (Unconfirmed) [place] interval has increased T wave inversion more evident in Anterior leads Confirmed by DR. Narcisa LAGUNA ([id number]) on 08/17/2020 7:02:36 AM Referred By: SANDIE Confirmed By:DR. Narcisa LAGUNA
--- NOTE | 2020-08-17 08:27 | PRG ---
DATE OF SERVICE: 08/17/2020 SUBJECTIVE: The patient continues to do poorly, not responding to any kind of therapy. OBJECTIVE: VITAL SIGNS: Temperature 97.4, pulse 100, blood pressure 107/71, O2 saturation 94%. He was covered on dobutamine and norepinephrine. HEENT: Unchanged. NECK: No JVD. LUNGS: Clear. CARDIAC: S1 and S2 distant. ABDOMEN: Protuberant. EXTREMITIES: Edematous. LABORATORY DATA: Sodium 128, potassium 5.5, chloride 99, CO2 of 19, BUN 71, creatinine 1.8, glucose 226. White blood cell count 5.7, hematocrit 28.8, and platelet count 12. ASSESSMENT: 1. Diastolic and systolic heart failure - end stage. 2. Thrombocytopenia secondary to splenic sequestration. 3. Passive liver congestion from heart failure. 4. Azotemia from heart failure. PLAN: There really is nothing to offer Mr. Recinos at this point. He has been unresponsive to all therapy and is not a candidate for LVAD. My recommendation would be hospice care and stop checking labs and cut back on his many medications as possible. Job ID: [id number]
[2020-08-17] MEDS: predniSONE 50 MG TAB PO SCH (08:28)
[2020-08-17] MEDS: Amiodarone 200 MG TAB PO SCH (08:28)
[2020-08-17] MEDS: Magnesium Oxide 400 MG TAB PO SCH (08:29)
[2020-08-17] MEDS: Digoxin 0.125 MG TAB PO SCH (08:29)
--- NOTE | 2020-08-17 08:33 | PRG ---
DATE OF SERVICE: 08/17/2020 SUBJECTIVE: Mr. Recinos's status is unchanged. Unfortunately, his platelet count has dropped significantly. His platelet count this morning was 12,000 after receiving platelets yesterday. He continues to be on steroid therapy. He is on dobutamine for blood pressure support. OBJECTIVE: VITAL SIGNS: Blood pressure 104/70, pulse 103, respirations 20. LUNGS: Crackles noted bilaterally. HEART: rate and rhythm. ABDOMEN: Soft, nontender, nondistended. EXTREMITIES: 2+ pitting edema. PERTINENT LABORATORY DATA: Hemoglobin 9.6, platelet count 12,000. IMPRESSION: 1. Szioc-lo-yujjace systolic heart failure. 2. Paroxysmal atrial fibrillation. 3. Coronary artery disease. 4. Status post bypass surgery. 5. Thrombocytopenia. RECOMMENDATIONS: Unfortunately, Mr. Recinos's platelet count continues to drop. This portends a poor prognosis. He is not felt to be an appropriate candidate for LVAD due to thrombocytopenia. He has not responded to steroid therapy or to platelet infusion. Unfortunately, options appear limited. He has been on pressure support over the last 9 days without significant improvement. We will likely consider hospice. Job ID: [id number]
[2020-08-17] MEDS: Albuterol Sulfate 2.5 mg/3 ml Neb NEB SCH ×4 (08:45→18:21)
[2020-08-17] MEDS ORDERED: Furosemide 100 MG in Sodium Chloride 0.9% 90 ML IVPB PRN (08:59)
[2020-08-17] MEDS ORDERED: Metolazone 5 MG TAB PO SCH (09:00)
--- NOTE | 2020-08-17 09:21 | PRG ---
DATE OF SERVICE: 08/17/2020 SUBJECTIVE: Mr. Adilson Recinos had a declining day. At 1st, he was doing well on combination of dobutamine 5 mcg/kg/minute and milrinone 0.125 mcg/kg/minute. However, his blood pressures started to decrease today. Milrinone had to be stopped and norepinephrine had to be restarted and dobutamine also had to be titrated up. We had difficulty in maintaining systolic blood pressure all day. It was also noted his hemoglobin was dropping despite transfusion, so he received another unit of blood. That helped some, but not sufficiently. The nurse noticed there could be a hematoma on the right flank. A CT scan was also done. They did not find any acute bleed or hematoma. He was able to sleep well overnight and he woke up this morning more short of breath, and then he had some episodes of nausea. REVIEW OF SYSTEMS: GENERAL: There is no fever or chills, but there is now some cough. HEENT: There is no change in vision, hearing, or swallowing. PULMONARY: Please see HPI. He is now more short of breath. CARDIAC: There is no chest pain, palpitations, syncope. GI: Please see HPI. : He had minimal response to Lasix 80 mg IV, but he has some difficulty to urinate into urinal. MUSCULOSKELETAL: He has right shoulder pain. INTEGUMENT: There is no new skin breakdown. NEUROLOGIC: There are no acute focal deficits or weaknesses. MEDICATIONS: That medications that he is currently on are: 1. Albumin 25 g IV q.6 hours. 2. Albuterol nebs q.4 hours. 3. Amiodarone 200 mg p.o. b.i.d., this will be discontinued. 4. Digoxin 0.125 mg daily. 5. He is on dobutamine currently at 12 mcg/kg/minute. 6. He is also on norepinephrine at 7 mcg/minute. 7. He is on moderate scale sliding insulin. 8. He is on magnesium oxide 400 mg daily. 9. He is on Zofran 4 mg IV q.6 hours p.r.n. 10. Protonix 40 mg daily. 11. Prednisone 50 mg b.i.d. 12. Vasopressin 0.04 units/minute if his MAPs of below 65 when both dobutamine is at 12 and vasopressin is at 8. Currently is not in use. Telemetry was reviewed. He is currently most likely to be sinus tachycardia at a rate about 100 to 105. But there are few PACs and PVCs. There is no concerning arrhythmia. PHYSICAL EXAMINATION: VITAL SIGNS: Latest vitals are heart rate 102, blood pressure 106/65. GENERAL: He is short of breath, appearing fatigued, appearing nauseated while sitting in bed. However, he is alert. He only can speak in short sentences without being short of breath. HEENT: EOMI. Oropharynx with moist mucosa. NECK: JVP is very elevated, at least 14 cm to the earlobe. PULMONARY: He has bilateral crackles in lower 1/2 lung base. He has much more pulmonary edema today. CARDIAC: Tachycardic. There is 2/6 holosystolic murmur at the left sternal border. There is 2/6 holosystolic murmur at the apex. ABDOMEN: More distended. EXTREMITIES: His hips have some pitting edema. There is at least 2 cm pitting edema from the feet towards the knees. Thus, he is much more volume overloaded today. LABORATORY VALUES: White cell count 5.9, hemoglobin 9.6, platelets only 12. His chemistries show sodium 128, potassium 5.5, chloride 99, bicarb 19, BUN 71, creatinine 1.9. ASSESSMENT: 74-year-old gentleman is reaching the end from combined biventricular failure. He resides in [place] [employer] Association stage D, and [place] Heart Association class 4 heart failure with reduced ejection fraction. He has both systolic and diastolic dysfunction. Worst, he has severe right ventricular failure too. The severe right ventricular failure is causing severe amount of edema. This is in turn worsened his thrombocytopenia, it will cause much more platelet sequestration in the spleen. He also has likely hepatic dysfunction due to congestion. Furthermore, he has unclear source of blood loss and his kidneys are shutting down. He is minimally responsive to Lasix at 80 mg IV. At this combination showed that his heart has no reserve. We have been pushing his heart harder and harder with everything that we can muster. Unfortunately, it is beyond response. Thus, the best option at this point is hospice. The possibility of hospice was discussed with the patient and his significant other, Elvie. They agree to this. However, the patient wants the drips to be continued until he has a chance to see his family members. Please see the following for my recommendations. RECOMMENDATIONS: 1. Torsemide 5 mg p.o. 1 dose now. 2. Lasix 80 mg IV 1 dose now. 3. If inadequate response, that meaning less than 200 mL in 1 hour, please start Lasix 10 mg/hour drip. 4. The above 3 combinations needed to provide some volume. We will need to buy some air space, so he has more comfortable time speaking to his family during the day. 5. Please consult hospice. He will need to be inpatient hospice. I suspect he will not survive very long at all without these on inotropic drips. 6. Discontinue amiodarone. 7. Please use whatever comfort medication as you see fit. It has been a pleasure of taking care Mr. Recinos. If you have any questions, please give me a call. The total ICU time spent over last 24 hours is at least 70 minutes. This includes frequent visits, titration of inotropic drips. I personally performed a history and physical, coordinating care with multiple services including [facility] in [place], holding family conferences and also direct patient interaction. Job ID: [id number] MTDD
[2020-08-17] MEDS ORDERED: Furosemide 100 MG/10 ML VIAL SLOW IVP SCH (09:30)
--- NOTE | 2020-08-17 12:49 | PRG ---
DATE OF SERVICE: 08/17/2020 SUBJECTIVE: Mr. Recinos gets short of breath when he moves around, but otherwise he has no pain or other complaints. OBJECTIVE: VITAL SIGNS: Temperature 98.1, pulse 100, blood pressure 104/65. GENERAL: He is in no acute distress. Alert and oriented x3. LUNGS: Clear to auscultation bilaterally. HEART: Regular rate and rhythm. ABDOMEN: Soft, nontender, and nondistended. Bowel sounds are present. EXTREMITIES: 2+ pitting lower extremity edema. IMPRESSION: 1. Anemia. His hemoglobin responded well to transfusion. 2. End-stage liver disease. This is further decompensated with congestive hepatopathy. 3. Chronic renal insufficiency. 4. Congestive heart failure, end-stage. PLAN: 1. He is being transitioned to hospice care for his heart failure. 2. I will sign off for now. Please call if GI can be of assistance. Job ID: [id number]
--- NOTE | 2020-08-17 13:41 | PDOC.PALPN ---
Palliative Progress Note - Subjective Understanding of poor prognosis. Platelets remain sub therapeutic despite transfusion. Remains on pressure support. Elvie his caregiver is at bedside. - Objective Vital Signs: Vital Signs - Most Recent Temp Pulse Resp BP Pulse Ox 98.1 F 100 15 85/48 L 96 08/17/20 12:00 08/17/20 12:25 08/17/20 12:25 08/16/20 12:45 08/17/20 12:25 - Physical Exam Constitutional: ill appearing HEENT: EOMI, moist MMs, sclera anicteric Respiratory: diminished lung sound, labored respirations Deviation from normal: Adventicious bilaterally Deviation from normal: murmur, intermittant tachycardia Gastrointestinal: soft, non-tender Genitourinary: continent Musculoskeletal: edema present Neurology: moves all 4 limbs, no focal deficits Skin: fragile Psychiatric: A&O x 3, normal affect - Assessment (1) Acute on chronic congestive heart failure Code(s): I50.9 - HEART FAILURE, UNSPECIFIED Current Visit: Yes Status: Acute (2) Palliative care encounter Code(s): Z51.5 - ENCOUNTER FOR PALLIATIVE CARE Current Visit: Yes Status: Acute (3) Idiopathic thrombocythemia Code(s): D47.3 - ESSENTIAL (HEMORRHAGIC) THROMBOCYTHEMIA Current Visit: Yes Status: Acute (4) Diabetes Code(s): E11.9 - TYPE 2 DIABETES MELLITUS WITHOUT COMPLICATIONS Current Visit: Yes Status: Acute (5) Elevated liver enzymes Code(s): R74.8 - ABNORMAL LEVELS OF OTHER SERUM ENZYMES Current Visit: Yes Status: Acute - Plan Plan: Mr Recinos is electing to transition to hospice. Understanding of prognosis. His daughter and [id number] are en route to be with him. Elvie is at bedside. Discussion on how to "Make today a good day". Mr Recinos expressed being at peace with his decision, and will elect to stop pressure support after visiting with his family. Emotional support offered Communicated with Spiritual Care Please also refer to Palliative Care notes in note section [30] minutes spent on this encounter with >50% of the time in counseling and coordination of care. - ROS Constitutional: alert, weakness ENT: alteration in dentition, dry mouth Respiratory: shortness of breath, shortness of breath with extertion Cardiology: edema Gastrointestinal: other (Denies abdominal pain, nausea or vomiting. ) Genitourinary: other (Denies hematuria, dysuria) Skin: other (Denies rash or puritis) Psychological: other (denies anxiety or aggitation)
[2020-08-17 14:11] LABS: Heparin-Induced Ab (HITA) 0.049 OD (0.000-0.400)
[2020-08-17] MEDS: Norepinephrine 8 MG/0.9% NS 250 ML IVPB SCH (14:13)
[2020-08-17 16:11] VITALS: TEMP 97.5
--- NOTE | 2020-08-17 16:54 | EKG ---
Test Reason : Blood Pressure : / mmHG Vent. Rate : 075 BPM Atrial Rate : 075 BPM P-R Int : 280 ms QRS Dur : 160 ms QT Int : 444 ms P-R-T Axes : -23 128 -34 degrees QTc Int : 495 ms Sinus rhythm with sinus arrhythmia with 1st degree A-V block Right bundle branch block T wave abnormality, consider inferior ischemia Abnormal ECG Confirmed by RENATO WELCH, WINSTON ([id number]), photograph editor TERRENCE FLOREZ ([id number]) on 08/17/2020 4:53:47 PM Referred By: Confirmed By:WINSTON GROSS MD
--- NOTE | 2020-08-17 17:59 | PDOC.BPN ---
- Brief Progress Note Encounter Date: 08/17/20 Encounter Time: 17:30 Mr. Recinos is admitted to inpatient hospice service with [facility], under Dr. Jensen, attending. His hospice admission diagnosis is end stage CHF. He is currently on dobutamine and vasopressin drips. The plan is to discontinue those drips this evening after all family members have had the opportunity to say goodbye. It is expected that patient will pass rather quickly after discontinuation of drips. Hospice admission orders were signed and in chart. May contact the resident service for needs.
[2020-08-17] MEDS ORDERED: Ondansetron PF 4 MG/2 ML Vial IVP PRN (19:00)
[2020-08-17] MEDS ORDERED: Ondansetron ODT 4 MG TAB PO PRN (19:00)
[2020-08-17] MEDS ORDERED: diphenhydrAMINE 50 MG/ML VIAL IVP PRN (19:00)
[2020-08-17] MEDS ORDERED: Morphine 10 MG/0.5 ML ORAL SYRINGE SL PRN (19:00)
[2020-08-17] MEDS ORDERED: chlorproMAZINE HCl 25 MG in Sodium Chloride 0.9% 50 ML IVPB PRN (19:00)
[2020-08-17] MEDS ORDERED: Scopolamine 1.5 mg/72 hour Patch TOP PRN ×2 (19:00)
[2020-08-17] MEDS ORDERED: chlorproMAZINE HCl 50 MG/2 ML AMP IM PRN ×2 (19:00)
[2020-08-17] MEDS ORDERED: Haloperidol Lactate 5 MG/ML VIAL SLOW IVP PRN (19:00)
[2020-08-17] MEDS ORDERED: Acetaminophen 650 MG Suppository PR PRN (19:00)
[2020-08-17] MEDS ORDERED: Acetaminophen 325 MG TAB PO PRN (19:00)
[2020-08-17] MEDS ORDERED: Lorazepam 1 MG TAB PO PRN ×2 (19:00)
[2020-08-17] MEDS ORDERED: Loperamide HCl 2 MG CAP PO PRN (19:00)
[2020-08-17] MEDS ORDERED: Promethazine HCl 25 MG SUPP PR PRN (19:00)
[2020-08-17] MEDS ORDERED: diphenhydrAMINE 25 MG CAP PO PRN (19:00)
[2020-08-17] MEDS ORDERED: Zolpidem Tartrate 5 MG TAB PO PRN (19:00)
[2020-08-17] MEDS ORDERED: Hyoscyamine Sulfate SL 0.125 mg Tablet SL PRN (19:00)
[2020-08-17] MEDS ORDERED: Milk Of Magnesia 30 ML UDCUP PO PRN (19:00)
[2020-08-17] MEDS ORDERED: Lorazepam 2 MG/ML VIAL SLOW IVP PRN ×2 (19:00)
[2020-08-17] MEDS ORDERED: Morphine IR Tab 15 MG TAB PO PRN (19:00)
[2020-08-17] MEDS ORDERED: DOBUTamine 250 MG/20 ML VIAL ONE (19:01)
[2020-08-17] MEDS ORDERED: DOBUTamine 500 mg/250 ml 250 ML ONE (19:01)
[2020-08-17] MEDS ORDERED: Ibuprofen 200 MG TAB PO PRN (19:03)
[2020-08-17] MEDS ORDERED: Morphine 2 MG/ML VIAL SLOW IVP PRN (19:03)
[2020-08-17] MEDS ORDERED: Morphine 4 MG/ML VIAL SLOW IVP PRN (19:04)
[2020-08-17] MEDS ORDERED: Haloperidol 1 MG TAB PO PRN (19:04)
--- NOTE | 2020-08-19 12:10 | DIS ---
DATE OF ADMISSION: 08/09/2020 DATE OF DISCHARGE: 08/17/2020 RESIDENT: Po Landaverde M.D. ADMITTING ATTENDING: Adelso Rocha M.D. DISCHARGE ATTENDIN. Diego Ahmadi M.D. 2. Adilson Jensen M.D. CONSULTS: 1. Kaleb bOando M.D., Pulmonology. 2. Diego Arteaga M.D., Cardiology. 3. Pardeep Ayala M.D., Electrophysiology. 4. Palliative Care. 5. Cornelia Smallwood, nurse practitioner, Oncology. 6. Perry Sy M.D., GI. 7. Elliott Cid M.D. 8. Adrianna Chaudhry, DIOR. 9. Tay Ybarra M.D., GI. PROCEDURES: 1. Chest x-ray performed on 08/09/2020, which demonstrated no acute cardiopulmonary processes; however, chronic lung parenchymal changes were noted. 2. EKG performed on 08/09/2020, which demonstrated sinus rhythm with sinus arrhythmia, first-degree AV block, as well as a right bundle-branch block, T-wave abnormalities, and possible inferior ischemia. 3. Chest thorax CTA performed on 08/09/2020, which demonstrated no evidence of pulmonary artery embolism to the level of segmental arteries, cirrhosis, portal hypertension and varices, cardiomegaly, splenomegaly and cholelithiasis. 4. Chest x-ray performed on 07/14/2020, which demonstrated uncomplicated left subclavian central venous catheter placement. 5. Chest x-ray performed on 08/11/2020, which demonstrated stable exam with previous evaluation. 6. Echocardiogram performed on 08/12/2020, which revealed an ejection fraction with an estimated 25% to 30% as well as grade 3 diastolic dysfunction, moderate tricuspid regurgitation and mildly elevated pulmonary artery pressure. 7. EKG performed on 08/13/2020, which demonstrated atrial fibrillation with rapid ventricular response, right bundle branch block, T-wave abnormality with inferior ischemia. 8. EKG performed on 08/14/2020, which demonstrated atrial tachycardia, marked ST abnormality, possible septal subendocardial injury, right bundle-branch block, left posterior fascicular block, bifascicular block. 9. Abdominal ultrasound performed on 08/14/2020, which demonstrated nonvisualization of the gallbladder, although recent CT showed a gallstone within a contracted gallbladder. The common duct is normal in caliber as well as heterogeneous echogenicity to the liver with suggestion of nodular cirrhotic contour and splenomegaly and mild ascites. 10. Pelvic ultrasound, which demonstrated minimal ascites, otherwise unremarkable pelvic ultrasound. 11. EKG performed on 08/16/2020, which demonstrated sinus rhythm with first-degree AV block, right bundle-branch block, left posterior fascicular block, bifascicular block, T-wave abnormalities with consideration for inferior ischemia and moderately increased MO interval when compared to previous EKG. 12. Chest, abdomen, pelvis CT scan performed on 08/16/2020, which demonstrated no evidence of hematoma in the chest, abdomen, or pelvis. Findings suggesting cirrhosis, complex ascites, splenomegaly, varices, pleural effusion with atelectasis, soft tissue edema that has developed since CT angiogram of the chest on 08/09/2020, probable gallstones in the severely contracted gallbladder, aneurysmal dilatation of the infrarenal abdominal aorta. PRIMARY DIAGNOSIS: End-stage congestive heart failure. SECONDARY DIAGNOSES: 1. Idiopathic thrombocythemia. 2. Type 2 diabetes. 3. Transaminitis. 4. Thrombocytopenia. 5. Hypersplenism. 6. Anemia. DISCHARGE MEDICATIONS: 1. Acetaminophen 650 mg p.r. q.4 hours p.r.n. 2. Alprazolam 0.25 mg p.o. q.6 hours p.r.n. 3. Thorazine 50 mg IM q.4 hours p.r.n., Thorazine 25 mg IM q.4 hours p.r.n. 4. Diphenhydramine 25 mg p.o. q.6 hours p.r.n., diphenhydramine 25 mg IV push q.6 hours p.r.n. 5. Haloperidol 1 mg p.o. q.2 hours p.r.n., haloperidol 5 mg IV push q.6 hours p.r.n. 6. Hyoscyamine sulfate 0.125 mg sublingual four times daily p.r.n. 7. Loperamide 2 mg p.o. p.r.n. 8. Lorazepam 2 mg p.o. q.4 hours p.r.n., lorazepam 1 mg p.o. q.4 hours p.r.n., lorazepam 2 mg IV push q.4 hours p.r.n., lorazepam 1 mg IV push q.4 hours p.r.n. 9. Magnesium hydroxide 30 mL p.o. daily p.r.n. 10. Morphine 2 mg IV push q.2 hours p.r.n., morphine 4 mg IV push q.2 hours p.r.n., morphine 15 mg immediate release tablet p.o. q.2 hours p.r.n. 11. Zofran 4 mg p.o. q.6 hours p.r.n., Zofran 4 mg IV push q.6 hours p.r.n. 12. Phenergan 25 mg p.r. q.6 hours p.r.n. 13. Scopolamine 3 mg topical q.3 days p.r.n., scopolamine 1.5 mg topical q.3 days p.r.n. 14. Senokot two tabs p.o. daily p.r.n. 15. Ambien 5 mg p.o. q.p.m. p.r.n. 16. Thorazine 25 mg IV push q.4 hours p.r.n., Thorazine 50 mg IV push q.4 hours p.r.n. 17. Tylenol 650 mg p.o. q.4 hours p.r.n., Tylenol 650 mg p.r. q.4 hours p.r.n. DISCONTINUED MEDICATIONS: None. HISTORY OF PRESENT ILLNESS AND HOSPITAL COURSE: The patient is a 74-year-old male with a long history of CHF, who was noted by his practice or student teacher on the evening of admission to have a systolic blood pressure in the 60s, at which point he was told that she thought that he needed to come to the emergency room. The patient finally agreed to transportation to the emergency room after 2 to 3 hours and did in fact arrive in the ER with a systolic blood pressure in the 70s. At which point, workup was begun showing severe abnormalities. However, the patient denied chest pain or shortness of breath, nor did he have any diaphoresis, nausea, vomiting, or any other unusual discomfort. The patient's blood sugars were running in the 140s. However, patient has renal insufficiency with a BUN of 54 and a creatinine of 1.9. Patient also has hyperkalemia with potassium of 6.5. The patient had a D-dimer that revealed to be 5.7, but this was found to be a false-positive after CT scan did not reveal any evidence of pulmonary embolism. The patient arrived with a lactic acid of 4.7 and a CK-MB of 10.5 with troponins of 2.2. The patient's primary care provider, Dr. Rocha, was contacted by the ER physician to place him in an ICU bed so that a dobutamine drip could be utilized to keep systolic blood pressure above 90, thereby allowing effective diuresis with furosemide. The patient was subsequently stabilized and transferred to the ICU where he was evaluated by multiple specialists with multiple imaging modalities and monitoring performed as mentioned elsewhere in this document. However, the patient's overall prognosis was poor and as such, on 08/17/2020, the patient in conjunction with the patient's family elected to pursue hospice care rather than ongoing aggressive medical management. As such, the patient was started on comfort measures and was transferred to the Family Medicine residents, who orchestrated transferred to [facility]. The patient was stable on the morning of 08/18/2020, lucid, A and O x3 and was able to participate with the evaluation and converse pleasantly with his family and hospital staff. Following opening availability of a bed at [facility], the patient was subsequently prepped for discharge. Prior to discharge, patient's vital signs were recorded as temperature 97.9, oxygen saturation 86% on room air, heart rate 85 beats per minute, blood pressure 85/59, respirations 16 breaths per minute. LABORATORY ANALYSIS: Revealed a white blood cell count of 5.7, hemoglobin 9.6, hematocrit 28.8, platelet count 12. Coagulation panel revealed a D-dimer of 5.76 as mentioned elsewhere in this document. Blood gas taken on 08/09/2020 the arterial collection was found to have a pH of 7.4, pCO2 of 27, and PO2 of 84. Chem panel revealed a sodium of 128, potassium 5.5, chloride 99, carbon dioxide 19, BUN 71, creatinine 1.98, glucose 211. Hemoglobin A1c 5.7. Lactic acid 3.4, down trended from 4.7, calcium 9.2, magnesium 2.4, iron 13, total iron binding capacity 301, total iron binding capacity percent saturation 4, ferritin 46.97, total bilirubin 3. AST 79, down from max of 179; ALT 199, down from a max of 283; alkaline phosphatase 105, down from a max of 113. Creatine kinase 83; CK-MB 6.8, down from a max of 10.5; troponins 1.919, down from a max of 2.204. BNP 7841.3. Triglycerides 75, cholesterol 119, LDL 75, HDL 29. Lipase 19. TSH 0.6856. Cortisol 20.2. Cortisol response see EMR. Heparin-induced antibody 0.049 and within normal limits. Serology: COVID-19 negative. DISPOSITION: Guarded. DISCHARGE INSTRUCTIONS: Location: [facility]. Diet: No restrictions. Activity: No restrictions. Followup: The patient will not require followup as he will be at the inpatient [facility] and will be evaluated by the attending physician there. The patient and the patient's family were all in agreement on the plan of care and were pleased with the service that they were provided while in the hospital. Job ID: [id number]
== END 2020-08-17 20:05 | disposition hospice, inpatient (51) | DRG 280 ==
LOC: ERS 18:18 → CCU 22:33
PROVIDERS: ADMIT Specialist; ATTEND Specialist
PROC: 02HV33Z Insertion of Infusion Device into Superior Vena Cava, Percutaneous Approach (ICD-10-PCS; principal; 2020-08-09)
PROC: 3E033XZ Introduction of Vasopressor into Peripheral Vein, Percutaneous Approach (ICD-10-PCS; 2020-08-09)
PROC: 30233N1 Transfusion of Nonautologous Red Blood Cells into Peripheral Vein, Percutaneous Approach (ICD-10-PCS; 2020-08-13)
PROC: 30233R1 Transfusion of Nonautologous Platelets into Peripheral Vein, Percutaneous Approach (ICD-10-PCS; 2020-08-16)
DX: I13.0 Hypertensive heart and chronic kidney disease with heart failure and stage 1 through stage 4 chronic kidney disease, or unspecified chronic kidney disease (principal); I21.4 Non-ST elevation (NSTEMI) myocardial infarction; J96.01 Acute respiratory failure with hypoxia; I50.43 Acute on chronic combined systolic (congestive) and diastolic (congestive) heart failure; D69.3 Immune thrombocytopenic purpura; E85.9 Amyloidosis, unspecified; N17.9 Acute kidney failure, unspecified; I45.2 Bifascicular block; I48.92 Unspecified atrial flutter; Z20.828 Contact with and (suspected) exposure to other viral communicable diseases; Z66 Do not resuscitate; Z51.5 Encounter for palliative care; K21.9 Gastro-esophageal reflux disease without esophagitis; E78.5 Hyperlipidemia, unspecified; I25.10 Atherosclerotic heart disease of native coronary artery without angina pectoris; E11.9 Type 2 diabetes mellitus without complications; G47.33 Obstructive sleep apnea (adult) (pediatric); E87.5 Hyperkalemia; N52.9 Male erectile dysfunction, unspecified; K74.60 Unspecified cirrhosis of liver; I48.91 Unspecified atrial fibrillation; N40.0 Benign prostatic hyperplasia without lower urinary tract symptoms; D73.1 Hypersplenism; D64.9 Anemia, unspecified; K72.90 Hepatic failure, unspecified without coma; N18.9 Chronic kidney disease, unspecified; I95.89 Other hypotension; I42.8 Other cardiomyopathies; Z79.82 Long term (current) use of aspirin; Z79.899 Other long term (current) drug therapy; Z79.84 Long term (current) use of oral hypoglycemic drugs; Z95.1 Presence of aortocoronary bypass graft; Z91.19 Patient's noncompliance with other medical treatment and regimen; Z85.6 Personal history of leukemia
CPT/HCPCS: 36415; 36416; 36430; 36556; 71045; 71250; 71275; 74177; 76856; 80048; 80053; 80061; 80400; 82533; 82550; 82553; 82728; 82805; 83036; 83540; 83550; 83605; 83690; 83735; 83880; 84443; 84484; 85025; 85046; 85379; 86850; 86900; 86901; 87040; 87635; 93005; 93010; 93306; 93798; 93975; 94640; 96361; 96365; 96366; 96368; 96372; 96375; 99292; J0834; J1160; J1250; J1265; J1650; J1815; J1940; J2260; J2405; J2916; J3475; J3490; J7512; J7611; P9016; P9035; P9047; Q9967; U0003

== ENCOUNTER 2020-08-17 21:35 | Inpatient (IN) | payer OTHER ==
[2020-08-17] MEDS ORDERED: Morphine 2 MG/ML VIAL SLOW IVP PRN (22:13)
[2020-08-17] MEDS ORDERED: Lorazepam 2 MG/ML VIAL SLOW IVP PRN ×2 (22:15)
[2020-08-17] MEDS ORDERED: Hyoscyamine Sulfate SL 0.125 mg Tablet SL PRN (22:15)
[2020-08-17] MEDS ORDERED: Senokot 8.6 MG TAB PO PRN (22:15)
[2020-08-17] MEDS ORDERED: ALPRAZolam 0.25 MG TAB PO PRN (22:15)
[2020-08-17] MEDS ORDERED: Zolpidem Tartrate 5 MG TAB PO PRN (22:15)
[2020-08-17] MEDS ORDERED: Ondansetron PF 4 MG/2 ML Vial IVP PRN (22:15)
[2020-08-17] MEDS ORDERED: chlorproMAZINE HCl 50 MG/2 ML AMP IM PRN ×2 (22:15)
[2020-08-17] MEDS ORDERED: Loperamide HCl 2 MG CAP PO PRN (22:15)
[2020-08-17] MEDS ORDERED: Haloperidol 1 MG TAB PO PRN (22:15)
[2020-08-17] MEDS ORDERED: Acetaminophen 325 MG TAB PO PRN (22:15)
[2020-08-17] MEDS ORDERED: Scopolamine 1.5 mg/72 hour Patch TOP PRN ×2 (22:15)
[2020-08-17] MEDS ORDERED: Morphine 4 MG/ML VIAL SLOW IVP PRN (22:15)
[2020-08-17] MEDS ORDERED: diphenhydrAMINE 50 MG/ML VIAL IVP PRN (22:15)
[2020-08-17] MEDS ORDERED: Promethazine HCl 25 MG SUPP PR PRN (22:15)
[2020-08-17] MEDS ORDERED: diphenhydrAMINE 25 MG CAP PO PRN (22:15)
[2020-08-17] MEDS ORDERED: Acetaminophen 650 MG Suppository PR PRN (22:15)
[2020-08-17] MEDS ORDERED: Ondansetron ODT 4 MG TAB PO PRN (22:15)
[2020-08-17] MEDS ORDERED: Haloperidol Lactate 5 MG/ML VIAL SLOW IVP PRN (22:15)
[2020-08-17] MEDS ORDERED: Lorazepam 1 MG TAB PO PRN ×2 (22:15)
[2020-08-17] MEDS ORDERED: chlorproMAZINE HCl 25 MG in Sodium Chloride 0.9% 50 ML IVPB PRN (22:15)
[2020-08-17] MEDS ORDERED: Milk Of Magnesia 30 ML UDCUP PO PRN (22:15)
[2020-08-17] MEDS ORDERED: Morphine IR Tab 15 MG TAB PO PRN (22:15)
[2020-08-17] MEDS ORDERED: Morphine 10 MG/0.5 ML ORAL SYRINGE SL PRN (22:15)
--- NOTE | 2020-08-18 07:23 | PDOC.FM ---
- Subjective Subjective: Patient was resting comfortably in bed with his daughter at bedside at the time of evaluation. A lengthy discussion was had with the patient's daughter about expectations with regard to End of Life Care - all questions answered and additional resources were discussed[facility] Per the patient's daughter, the patient's grandson will be flying to [place] from [place] later this AM. Of note, the hospital EMR was unavailable prior to the evaluation and vital signs could not be reviewed appropriately. However, there were no issues reported by the Resident Night Team or the Nursing Staff. - Objective Vital Signs & Weight: Vital Signs (12 hours) Temp Pulse Ox 08/18/20 00:00 97.9 F 08/17/20 21:35 81 L Most Recent Monitor Data Heart Rate from ECG 86 NIBP 83/54 NIBP BP-Mean 63 Respiration from ECG 13 SpO2 85 I&O: 08/17/20 08/18/20 08/19/20 06:59 06:59 06:59 Intake Total 240 Output Total 0 0 Balance 240 0 Phys Exam - Physical Examination Constitutional: NAD HEENT: moist MMs, oral pharynx no lesions Neck: supple Respiratory: no wheezing, no rhonchi Scant crackles heard intermittently Cardiovascular: RRR, no significant murmur, no rub Gastrointestinal: soft, non-tender, no distention, positive bowel sounds Musculoskeletal: pulses present +3 pitting edema to the knees, bilaterally Neurological: non-focal Dx/Plan (1) Acute on chronic congestive heart failure Code(s): I50.9 - HEART FAILURE, UNSPECIFIED Status: Acute (2) Elevated liver enzymes Code(s): R74.8 - ABNORMAL LEVELS OF OTHER SERUM ENZYMES Status: Acute (3) Hypersplenism Code(s): D73.1 - HYPERSPLENISM Status: Acute (4) Idiopathic thrombocythemia Code(s): D47.3 - ESSENTIAL (HEMORRHAGIC) THROMBOCYTHEMIA Status: Acute (5) Palliative care encounter Code(s): Z51.5 - ENCOUNTER FOR PALLIATIVE CARE Status: Acute (6) Thrombocytopenia Code(s): D69.6 - THROMBOCYTOPENIA, UNSPECIFIED Status: Acute - Plan Plan: Patient is a 74 y/o male with a PMH significant for CHF who is currently being care for by [facility] for Hospice Care. 1. End-Stage CHF requiring Hospice Care -Patient recently taken off of multiple gtts in an ICU setting - understanding of current prognosis -Patient is stable with family at bedside - will most likely transfer to Medical Floor or In-Patient Hospice later this AM -Will provide symptomatic management for Agitation/Anxiety, Pain, SOB, etc. -Will continue to provide emotional support and make sure that family is aware of [employer], Grief Counseling, etc. Dispo: Patient is currently stable and admitted to the CCU for End-Stage CHF requiring Hospice Care. Will assist as needed with all End of Life Care discussions, symptomatic management. Expected LOS < 24H. Addendum - Attending - Attending Attestation Date/Time: 08/18/20 [id number] I personally evaluated the patient and discussed the management with Dr. Landaverde. I agree with the History, Examination, Assessment and Plan documented above with any addition or exceptions noted below.
[2020-08-18 12:24] VITALS: TEMP 97.8
== END 2020-08-18 14:05 | disposition hospice, inpatient (51) | DRG 951 ==
LOC: CDU 21:35 → CCU 21:57
PROVIDERS: ADMIT Family Medicine; ATTEND Family Medicine
DX: Z51.5 Encounter for palliative care (principal); R74.8 Abnormal levels of other serum enzymes; D73.1 Hypersplenism; D47.3 Essential (hemorrhagic) thrombocythemia; D69.6 Thrombocytopenia, unspecified; I50.84 End stage heart failure
CPT/HCPCS: Q0163